=== PATIENT | male | born 1945 | race African-American/Black ===

== ENCOUNTER 2018-01-19 11:44 | Inpatient (IN) | payer OTHER ==
[~2018-01-19] VITALS: Ht 172.7 cm; Wt 59.6 kg
[2018-01-19] VITALS (8 sets, daily range): BP systolic 124–145; BP diastolic 72–85; PULSE 68–87; RESP 16–18; TEMP 97.8–98.7; O2SAT 96–99
[~2018-01-19 11:44] MED LIST: ASPIRIN/DIPYRIDAMOLE; DOXA1 PO; FINACRY PO; METF-324 PO
--- NOTE | 2018-01-19 11:55 | PD ---
HPI Chief Complaint: generalized weakness Time Seen by Provider: 11:55 Travel History International Travel<30 days: No Contact w/Intl Traveler<30days: No Traveled to known affect area: No History of Present Illness HPI 72-year-old male was sent from the [facility] via ambulance for generalized weakness and frequent falls. Upon asking patient says this is been going on for past 6 weeks. 4 days ago he fell on right outstretched hand. Says his wrist has been hurting since then. He went to see his doctor at the [facility] for that but after hearing his whole history the decided to send him to the emergency room for evaluation. Patient denies any syncopal episode. Patient denies any chest pain or shortness of breath. He is a chronic smoker. He appears to be in a disheveled and poor condition. Vital signs are relatively stable. Patient is awake and answering questions appropriately. [facility] Past Medical History Narrative Medical List of his past medical, surgical, social and family history is reviewed from the nursing note Diabetes: Yes Hypertension: Yes Social History Alcohol Use: Yes Tobacco Use: Yes Substance Use: No Allergies-Medications (Allergen,Severity, Reaction): Coded Allergies: No Known Allergies (Verified Adverse Reaction, Unknown, 01/19/18) Comments No known drug allergies. Reported Meds & Prescriptions Reported Meds & Active Scripts Active Reported Finasteride 5 Mg Tab 5 Mg PO DAILY Do not crush. Doxazosin (Doxazosin Mesylate) 4 Mg Tab 4 Mg PO DAILY Narrative Medication List of his home medications reviewed from the nursing note. Review of Systems Except as stated in HPI: all other systems reviewed are Neg Physical Exam Narrative GENERAL: Awake, alert, disheveled, poor hygiene, no obvious distress SKIN: Focused skin assessment warm/dry. HEAD: Atraumatic. Normocephalic. EYES: Pupils equal and round. No scleral icterus. No injection or drainage. ENT: No nasal bleeding or discharge. Mucous membranes pink and moist. NECK: Trachea midline. No JVD. CARDIOVASCULAR: Regular rate and rhythm. No murmur appreciated. RESPIRATORY: No accessory muscle use. Clear to auscultation. Breath sounds equal bilaterally. GASTROINTESTINAL: Abdomen soft, non-tender, nondistended. Hepatic and splenic margins not palpable. MUSCULOSKELETAL: No obvious deformities. No clubbing. No cyanosis. No edema. Right wrist is swollen with decreased range of motion mainly due to the pain. NEUROLOGICAL: Awake and alert. No obvious cranial nerve deficits. Motor grossly within normal limits. Normal speech. PSYCHIATRIC: Appropriate mood and affect; insight and judgment normal. Data Data Last Documented VS Vital Signs Date Time Temp Pulse Resp B/P (MAP) Pulse Ox O2 Delivery O2 Flow Rate FiO2 01/19/18 14:17 97.9 78 18 140/85 (103) 97 Room Air Orders Orders Electrocardiogram (01/19/18 12:03) Complete Blood Count With Diff (01/19/18 12:03) Comprehensive Metabolic Panel (01/19/18 12:03) Creatine Kinase (Cpk) (01/19/18 12:03) Prothrombin Time / Inr (Pt) (01/19/18 12:03) Troponin I (01/19/18 12:03) Urinalysis - C+S If Indicated (01/19/18 12:03) Chest, Single Ap (01/19/18 12:03) Ct Brain W/O Iv Contrast(Rout) (01/19/18 12:03) Blood Glucose (01/19/18 12:03) Ecg Monitoring (01/19/18 12:03) Iv Access Insert/Monitor (01/19/18 12:03) Oximetry (01/19/18 12:03) Sodium Chloride 0.9% Flush (Ns Flush) (01/19/18 12:15) Wrist, Complete ([id number]) (01/19/18 ) Sodium Chlor 0.9% 1000 Ml Inj (Ns 1000 M (01/19/18 14:00) Urine Culture (01/19/18 13:00) Aspirin (Aspirin) (01/19/18 14:30) Ceftriaxone Inj (Rocephin Inj) (01/19/18 14:30) Admit Order (Ed Use Only) (01/19/18 14:24) Labs Laboratory Tests Test 01/19/18 12:00 01/19/18 13:00 White Blood Count 13.3 TH/MM3 Red Blood Count 4.87 MIL/MM3 Hemoglobin 15.2 GM/DL Hematocrit 44.4 % Mean Corpuscular Volume 91.1 FL Mean Corpuscular Hemoglobin 31.1 PG Mean Corpuscular Hemoglobin Concent 34.1 % Red Cell Distribution Width 12.9 % Platelet Count 233 TH/MM3 Mean Platelet Volume 7.7 FL Neutrophils (%) (Auto) 83.7 % Lymphocytes (%) (Auto) 6.6 % Monocytes (%) (Auto) 9.2 % Eosinophils (%) (Auto) 0.2 % Basophils (%) (Auto) 0.3 % Neutrophils # (Auto) 11.1 TH/MM3 Lymphocytes # (Auto) 0.9 TH/MM3 Monocytes # (Auto) 1.2 TH/MM3 Eosinophils # (Auto) 0.0 TH/MM3 Basophils # (Auto) 0.0 TH/MM3 CBC Comment DIFF FINAL Differential Comment Prothrombin Time 9.8 SEC Prothromb Time International Ratio 1.0 RATIO Blood Urea Nitrogen 17 MG/DL Creatinine 1.45 MG/DL Random Glucose 260 MG/DL Total Protein 6.7 GM/DL Albumin 3.4 GM/DL Calcium Level 8.2 MG/DL Alkaline Phosphatase 58 U/L Aspartate Amino Transf (AST/SGOT) 10 U/L Alanine Aminotransferase (ALT/SGPT) 7 U/L Total Bilirubin 0.6 MG/DL Sodium Level 134 MEQ/L Potassium Level 4.1 MEQ/L Chloride Level 101 MEQ/L Carbon Dioxide Level 24.3 MEQ/L Anion Gap 9 MEQ/L Estimat Glomerular Filtration Rate 58 ML/MIN Hemoglobin A1c 6.9 % Total Creatine Kinase 75 U/L Troponin I LESS THAN 0.02 NG/ML Urine Color YELLOW Urine Turbidity HAZY Urine pH 5.5 Urine Specific [place] 1.022 Urine Protein TRACE mg/dL Urine Glucose (UA) 1000 mg/dL Urine Ketones NEG mg/dL Urine Occult Blood NEG Urine Nitrite NEG Urine Bilirubin NEG Urine Urobilinogen LESS THAN 2.0 MG/DL Urine Leukocyte Esterase SMALL Urine RBC 6 /hpf Urine WBC 33 /hpf Urine Squamous Epithelial Cells <1 /hpf Microscopic Urinalysis Comment CATH-CULTURE IND MDM Medical Decision Making Medical Screen Exam Complete: Yes Emergency Medical Condition: Yes Medical Record Reviewed: Yes Interpretation(s) Twelve-lead EKG was reviewed by me. Normal sinus rhythm, normal axis, nonspecific ST-T wave changes. Heart rate of 72 bpm. Differential Diagnosis Dehydration, electrolyte abnormality, neoplasm, intracranial bleed, wrist fracture Narrative Course 1:49 PM blood test results of back and within acceptable limits. X-ray of the wrist does not show any fracture just arthritis. Chest x-rays negative. ED is read by the radiologist said subacute lacunar infarct. I would like to admit this patient so that he can get further workup for his stroke. Awaiting for the hospitalist call back. Procedures EKG Prior to Arrival: No Diagnosis Primary Impression: Generalized weakness Additional Impressions: Frequent falls CVA (cerebral vascular accident) Qualified Codes: I63.49 - Cerebral infarction due to embolism of other cerebral artery Hyperglycemia Wrist sprain Qualified Codes: S63.501A - Unspecified sprain of right wrist, initial encounter UTI (urinary tract infection) Qualified Codes: N39.0 - Urinary tract infection, site not specified Admitting Information Admitting Physician Requests: Admit Scripts Metformin (Metformin) 500 Mg Tab 500 MG PO DAILY for Blood Sugar Management, #30 TAB 0 Refills With a meal Prov: Nora Thornton MD 01/21/18 Blood-Glucose Meter (Blood Glucose Meter) 1 Each Each UNIT, #1 Prov: Nora Thornton MD 01/21/18 Walker with Front Wheels (Walker with Front Wheels) 1 Mis Mis EA .XX DIRECTED, #1 0 Refills Prov: Nora Thornton MD 01/21/18 Lisinopril (Lisinopril) 5 Mg Tab 5 MG PO DAILY for Blood Pressure Management, #30 TAB 0 Refills Prov: Nora Thornton MD 01/21/18 Ciprofloxacin (Cipro) 250 Mg Tab 250 MG PO BID for Infection for 5 Days, #10 TAB 0 Refills Prov: Nora Thornton MD 01/21/18 Atorvastatin (Lipitor) 20 Mg Tab 20 MG PO HS for Cholesterol Management for 30 Days, #30 TAB 0 Refills Prov: Nora Thornton MD 01/21/18 Aspirin (Aspirin) 81 Mg Chew 162 MG CHEW DAILY for cva, #30 TAB 0 Refills Prov: Nora Thornton MD 01/21/18 Jacey Condon MD Jan 19, 2018 11:55
[2018-01-19] MEDS ORDERED: SODIUM CHLORIDE 0.9% FLUSH 10 ML FLUSH IV FLUSH PRN (12:15)
--- NOTE | 2018-01-19 12:32 | RADRPT ---
EXAM DATE/TIME: 01/19/2018 12:18 [facility] COMPARISON: No previous studies available for comparison. INDICATIONS : General weakness, falls, right arm weakness, right hand pain. Altered mental status. RADIATION DOSE: 34.02 CTDIvol (mGy) MEDICAL HISTORY : Cardiovascular disease. Hypertension. Diabetes SURGICAL HISTORY : None. ENCOUNTER: Initial ACUITY: 1 day PAIN SCALE: 0/10 LOCATION: cranial TECHNIQUE: Multiple contiguous axial images were obtained of the head. Using automated exposure control and adj ustment of the mA and/or kV according to patient size, radiation dose was kept as low as reasonably a chievable to obtain optimal diagnostic quality images. DICOM format image data is available electro nically for review and comparison. FINDINGS: There is a probable subacute or old lacunar infarct in the right periventricular white matter extendi ng towards the basal ganglia. There are additional smaller lacunar infarcts in the left thalamus and right globus pallidus. There is moderate chronic ischemic changes in the white matter. No mass effect or midline shift. No hydrocephalus. No abnormal extra-axial fluid collections. No acute bony abnorma lities. CONCLUSION: 1. Subacute or old approximately 1 cm lacunar infarct in the right periventricular white matter. Kvng tional smaller subcentimeter lacunar infarcts in the left thalamus and right globus pallidus. Underly ing moderate to severe chronic ischemic changes in the white matter. No hemorrhage or mass effect. Sarmad Avery MD on January 19, 2018 at 12:28 Board Certified Radiologist. This report was verified electronically.
--- NOTE | 2018-01-19 12:36 | RADRPT ---
EXAM DATE/TIME: 01/19/2018 12:12 [facility] COMPARISON: No previous studies available for comparison. INDICATIONS : Shortness of breath. MEDICAL HISTORY : None. SURGICAL HISTORY : None. ENCOUNTER: Initial ACUITY: 4 - 6 days PAIN SCORE: 0/10 LOCATION: Bilateral chest FINDINGS: A single view of the chest demonstrates the lungs to be symmetrically aerated without evidence of mas s, infiltrate or effusion. The cardiomediastinal contours are unremarkable. Osseous structures are intact. CONCLUSION: 1. No active disease. Mild cardiomegaly. Sarmad Avery MD on January 19, 2018 at 12:32 Board Certified Radiologist. This report was verified electronically.
[2018-01-19 12:37] LABS: AUTOMATED NEUTROPHIL # 11.1 TH/MM3 (1.8-7.7); BASOPHIL % 0.3 % (0.0-2.0); EOSINOPHIL % 0.2 % (0.0-4.0); HEMATOCRIT 44.4 % (39.0-51.0); HEMOGLOBIN 15.2 GM/DL (13.0-17.0); LYMPH % 6.6 % (9.0-44.0); LYMPHOCYTE # 0.9 TH/MM3 (1.0-4.8); MEAN CELL VOLUME 91.1 FL (80.0-100.0); MEAN CORPUSCULAR HEMOGLOBIN 31.1 PG (27.0-34.0); MEAN CORPUSCULAR HGB CONC 34.1 % (32.0-36.0); MEAN PLATELET VOLUME 7.7 FL (7.0-11.0); MONO % 9.2 % (0.0-8.0); MONOCYTE # 1.2 TH/MM3 (0-0.9); NEUT % 83.7 % (16.0-70.0); PLATELET COUNT 233 TH/MM3 (150-450); RED BLOOD COUNT 4.87 MIL/MM3 (4.50-5.90); RED CELL DISTRIBUTION WIDTH 12.9 % (11.6-17.2); WHITE BLOOD COUNT 13.3 TH/MM3 (4.0-11.0)
--- NOTE | 2018-01-19 12:38 | RADRPT ---
EXAM DATE/TIME: 01/19/2018 12:13 [facility] COMPARISON: No previous studies available for comparison. INDICATIONS : Right lateral wrist pain after fall. MEDICAL HISTORY : None. SURGICAL HISTORY : None. 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 Mild to moderate osteoarthritis the remainder of the right wrist. No acute fracture or dislocation. CONCLUSION: 1. No acute findings. Osteoarthritis right wrist as above. Sarmad Avery MD on January 19, 2018 at 12:34 Board Certified Radiologist. This report was verified electronically.
[2018-01-19 12:44] LABS: PROTHROMBIN TIME - PATIENT 9.8 SEC (9.8-11.6)
[2018-01-19 12:48] LABS: ALBUMIN 3.4 GM/DL (3.4-5.0); ALT (GPT) 7 U/L (12-78); AST (GOT) 10 U/L (15-37); BICARBONATE 24.3 MEQ/L (21.0-32.0); BLOOD UREA NITROGEN 17 MG/DL (7-18); CALCIUM 8.2 MG/DL (8.5-10.1); CHLORIDE 101 MEQ/L (98-107); CREATININE 1.45 MG/DL (0.60-1.30); GLOMERULAR FILTRATION RATE 58 ML/MIN (>89); GLUCOSE,RANDOM 260 MG/DL (74-106); SODIUM (NA) 134 MEQ/L (136-145)
[2018-01-19 12:52] LABS: ALKALINE PHOSPHATASE 58 U/L (45-117); TOTAL BILIRUBIN ADULT 0.6 MG/DL (0.2-1.0); TOTAL PROTEIN 6.7 GM/DL (6.4-8.2); TROPONIN I LESS THAN 0.02 NG/ML (0.02-0.05)
[2018-01-19] MEDS ORDERED: DOXA1TAB34 PO (13:29)
[2018-01-19] MEDS ORDERED: FINA5TAB2 PO (13:29)
[2018-01-19] MEDS ORDERED: SODIUM CHLOR 0.9% 1000 ML INJ 1,000 ML IV ONE ×2 (14:00→14:45)
[2018-01-19 14:13] LABS: BILIRUBIN, URINE NEG (NEG); BLOOD, URINE NEG (NEG); GLUCOSE,URINE 1000 mg/dL (NEG); KETONE, URINE NEG (NEG); NITRITE,URINE NEG (NEG); PH, URINE 5.5 (5.0-8.5); SQUAMOUS EPITHELIAL CELL URINE <1 /hpf (0-5); URINE COLOR YELLOW (YELLW/STRAW); URINE LEUKOCYTE ESTERASE SMALL (NEG)
[2018-01-19] MEDS ORDERED: ASPIRIN 325 MG TAB PO ONE (14:30)
[2018-01-19] MEDS ORDERED: cefTRIAXone INJ 1,000 MG in SODIUM CHLORIDE 0.9% INJ 100 ML IV ONE (14:30)
[2018-01-19] MEDS ORDERED: ACETAMINOPHEN/HYDROcodone 325 MG/5 MG TAB PO PRN (14:45)
[2018-01-19] MEDS ORDERED: DEXTROSE 50% IN WATER 50 ML VIAL(D50) IV PUSH PRN (14:45)
[2018-01-19] MEDS ORDERED: ACETAMINOPHEN 325 MG TAB PO PRN (14:45)
[2018-01-19] MEDS ORDERED: GLUCAGON 1 MG/ML VIAL OTHER PRN (14:45)
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
--- NOTE | 2018-01-19 16:32 | RADRPT ---
EXAM DATE/TIME: 01/19/2018 15:46 [facility] COMPARISON: No previous studies available for comparison. INDICATIONS : Cerebrovascular accident. MEDICAL HISTORY : Hypercholesterolemia. Hypertension. Chronic obstructive pulmonary disease. Glasses. Cardiac disorders . Anticoagulant therapy. Asthma. Diabetes. Alcohol use. Tobacco use. BPH. SURGICAL HISTORY : None. ENCOUNTER: Initial ACUITY: 1 day PAIN SCORE: 0/10 LOCATION: Bilateral neck PEAK SYSTOLIC VELOCITIES (cm/sec): ICA/CCA RATIO: Right: 1.0 Left: 0.6 ICA: Right: 62.0 Left: 49.3 CCA: Right: 64.7 Left: 76.3 ECA: Right: 51.5 Left: 72.4 VERTEBRAL: Right: 51.7 antegrade Left: 30.5 antegrade Elevated flow velocities and ICA/CCA ratios have been found to correlate with increased degrees of vessel stenosis, calculated as percentage of diameter relative to a normal segment of distal ICA/CCA FINDINGS: RIGHT CAROTID: No significant stenosis is visualized. The waveforms are within normal limits. LEFT CAROTID: No significant stenosis is visualized. The waveforms are within normal limits. VERTEBRAL ARTERIES: Antegrade flow is seen in both vertebral arteries. MISCELLANEOUS: None. CONCLUSION: 1. Scattered bilateral bulky calcified carotid plaque without significant flow-limiting stenosis. 2. Vertebral artery flow bilaterally. Manny Potter MD on January 19, 2018 at 16:28 Board Certified Radiologist. This report was verified electronically.
[2018-01-19] MEDS: INSULIN ASPART SUPPLEMENTAL SCALE SQ SCH ×2 (16:56→21:00)
--- NOTE | 2018-01-19 18:04 | RADRPT ---
EXAM DATE/TIME: 01/19/2018 17:36 [facility] COMPARISON: CT BRAIN W/O CONTRAST, January 19, 2018, 12:18. MRI BRAIN W/O CONTRAST, January 19, 2018, 17:36. INDICATIONS : CVA. MEDICAL HISTORY : Hypertension. Hypercholesterolemia. Chronic obstructive pulmonary disease. Diabetes. BPH. SURGICAL HISTORY : None. ENCOUNTER: Subsequent ACUITY: 1 day PAIN SCORE: 0/10 LOCATION: cranial Please note a normal MRA of the brain does not entirely exclude the possibility of a small aneurysm, nor the possibility of distal intracranial vessel disease. TECHNIQUE: 3D time of flight MRA was performed. Source images, multiplanar STS MIP, and 3D volume MIP reconstru ctions were reviewed. FINDINGS: There is excellent visualization of the major intracranial arteries out to the second-order branch ve ssels. There is no evidence for aneurysm, vessel truncation or stenosis, and no evidence for vascula r malformation. CONCLUSION: Normal examination. Remy Iverson MD on January 19, 2018 at 18:02 Board Certified Radiologist. This report was verified electronically.
--- NOTE | 2018-01-19 18:07 | RADRPT ---
EXAM DATE/TIME: 01/19/2018 17:36 [facility] COMPARISON: MRA BRAIN W/O CONTRAST, January 19, 2018, 17:36. CT BRAIN W/O CONTRAST, January 19, 2018, 12:18. INDICATIONS : CVA. MEDICAL HISTORY : Hypertension. Hypercholesterolemia. Chronic obstructive pulmonary disease. Diabetes. BPH. SURGICAL HISTORY : None. ENCOUNTER: Subsequent ACUITY: 1 day PAIN SCORE: 0/10 LOCATION: cranial TECHNIQUE: Multiplanar, multisequence MRI of the brain was performed without contrast. FINDINGS: Diffusion weighted images demonstrate no evidence for acute infarction. There is moderate increased f lair millimeter times, periventricular white matter, basal ganglia and bilateral centrum semiovale an d subcortical white matter, most characteristic of chronic microvascular ischemic disease. T2 images best demonstrate pontine, left thalamic and bilateral basal ganglia lacunar infarcts, nonacute. There is mild diffuse atrophy. There is no evidence of intracranial hemorrhage or mass. CONCLUSION: No evidence of acute infarct, atrophy is present with white matter disease and remote lacunar infarct miller Iverson MD on January 19, 2018 at 18:04 Board Certified Radiologist. This report was verified electronically.
[2018-01-20] VITALS (7 sets, daily range): BP systolic 130–159; BP diastolic 69–82; PULSE 62–71; RESP 16–18; TEMP 97.4–98.9; O2SAT 94–97
[2018-01-20 07:17] LABS: AUTOMATED NEUTROPHIL # 7.6 TH/MM3 (1.8-7.7); BASOPHIL # 0.1 TH/MM3 (0-0.2); BASOPHIL % 0.5 % (0.0-2.0); EOSINOPHIL # 0.2 TH/MM3 (0-0.4); EOSINOPHIL % 2.1 % (0.0-4.0); HEMATOCRIT 41.1 % (39.0-51.0); HEMOGLOBIN 14.2 GM/DL (13.0-17.0); LYMPH % 14.3 % (9.0-44.0); LYMPHOCYTE # 1.5 TH/MM3 (1.0-4.8); MEAN CELL VOLUME 90.4 FL (80.0-100.0); MEAN CORPUSCULAR HEMOGLOBIN 31.4 PG (27.0-34.0); MEAN CORPUSCULAR HGB CONC 34.7 % (32.0-36.0); MEAN PLATELET VOLUME 7.5 FL (7.0-11.0); MONOCYTE # 0.8 TH/MM3 (0-0.9); NEUT % 75.1 % (16.0-70.0); PLATELET COUNT 218 TH/MM3 (150-450); RED BLOOD COUNT 4.54 MIL/MM3 (4.50-5.90); RED CELL DISTRIBUTION WIDTH 13.3 % (11.6-17.2); WHITE BLOOD COUNT 10.2 TH/MM3 (4.0-11.0)
[2018-01-20] MEDS: INSULIN ASPART SUPPLEMENTAL SCALE SQ SCH ×4 (08:00→20:58)
[2018-01-20 08:06] LABS: BICARBONATE 22.9 MEQ/L (21.0-32.0); CALCIUM 8.4 MG/DL (8.5-10.1); CHOLESTEROL/ HDL RATIO 2.43 RATIO; CREATININE 1.27 MG/DL (0.60-1.30); HDL CHOLESTEROL 50.2 MG/DL (40.0-60.0)
[2018-01-20] MEDS: FINASTERIDE 5 MG TAB PO SCH (09:22)
[2018-01-20] MEDS: DOXAZOSIN MESYLATE 4 MG TAB PO SCH (09:22)
[2018-01-20] MEDS: ASPIRIN 325 MG TAB PO SCH (09:23)
--- NOTE | 2018-01-20 09:24 | HHI.PR ---
Subjective Remarks in no acute distress. pain and swelling of the right wrist is better today. no other new complaints. d/w the RN and no acute issues over night. Objective Vitals Vital Signs Date Time Temp Pulse Resp B/P (MAP) Pulse Ox O2 Delivery O2 Flow Rate FiO2 01/20/18 08:00 98.9 70 18 132/75 (94) 97 01/20/18 04:00 98.3 71 16 139/69 (92) 95 01/20/18 00:00 98.7 67 16 136/79 (98) 94 01/19/18 20:00 98.7 68 17 138/75 (96) 96 01/19/18 18:05 97.8 76 17 138/81 (100) 99 01/19/18 17:00 98.0 74 18 132/80 (97) 98 Room Air 01/19/18 15:00 97.9 76 16 124/85 (98) 98 Room Air 01/19/18 14:17 97.9 78 18 140/85 (103) 97 Room Air 01/19/18 13:00 97.8 81 18 138/81 (100) 99 Room Air 01/19/18 12:07 17 97 Room Air 01/19/18 12:00 82 18 97 Room Air 01/19/18 11:59 97.8 87 18 145/72 (96) 98 I/O 01/19/18 01/19/18 01/19/18 01/20/18 01/20/18 01/20/18 07:00 15:00 23:00 07:00 15:00 23:00 Intake Total 1100 ml 0 ml Output Total 800 ml 700 ml 600 ml Balance -800 ml 400 ml -600 ml Intake Oral 0 ml IV Total 1100 ml Output Urine Total 800 ml 700 ml 600 ml # Voids 1 1 # Bowel Movements 0 0 Result Diagram: 01/20/18 0650 01/20/18 0650 Imaging Last Impressions Head CT 01/19/18 1203 Signed Impressions: Service Date/Time: Friday, January 19, 2018 12:18 - CONCLUSION: 1. Subacute or old approximately 1 cm lacunar infarct in the right periventricular white matter. Additional smaller subcentimeter lacunar infarcts in the left thalamus and right globus pallidus. Underlying moderate to severe chronic ischemic changes in the white matter. No hemorrhage or mass effect. Sarmad Avery MD Chest X-Ray 01/19/18 1203 Signed Impressions: Service Date/Time: Friday, January 19, 2018 12:12 - CONCLUSION: 1. No active disease. Mild cardiomegaly. Sarmad Avery MD Wrist X-Ray 01/19/18 0000 Signed Impressions: Service Date/Time: Friday, January 19, 2018 12:13 - CONCLUSION: 1. No acute findings. Osteoarthritis right wrist as above. Sarmad Avery MD Head Magnetic Resonance Angiography 01/19/18 0000 Signed Impressions: Service Date/Time: Friday, January 19, 2018 17:36 - CONCLUSION: Normal examination. Remy Iverson MD Carotid Artery Ultrasound 01/19/18 0000 Signed Impressions: Service Date/Time: Friday, January 19, 2018 15:46 - CONCLUSION: 1. Scattered bilateral bulky calcified carotid plaque without significant flow-limiting stenosis. 2. Vertebral artery flow bilaterally. Manny Potter MD Brain MRI 01/19/18 0000 Signed Impressions: Service Date/Time: Friday, January 19, 2018 17:36 - CONCLUSION: No evidence of acute infarct, atrophy is present with white matter disease and remote lacunar infarcts. Remy Iverson MD Objective Remarks GENERAL: This is a well-nourished, well-developed patient, in no apparent distress. CARDIOVASCULAR: Regular rate and regular rhythm without murmurs, gallops, or rubs. RESPIRATORY: Clear to auscultation. Breath sounds equal bilaterally. No wheezes , rales, or rhonchi. GASTROINTESTINAL: Abdomen soft, non-tender, nondistended. Normal, active bowel sounds MUSCULOSKELETAL: swelling of the right wrist is better. NEURO: Alert & Oriented x4 to person, place, time, situation. Moves all ext x4 Medications and IVs Inpatient Medications Acetaminophen (Tylenol) 650 mg Q4H PRN PO FEVER/ PAIN 1-5; Start 01/19/18 at 14: 45 Acetaminophen/ Hydrocodone Bitart ([place] 5-325 Mg) 1 tab Q4H PRN PO PAIN 6-10 ; Start 01/19/18 at 14:45 Aspirin (Aspirin) 325 mg DAILY PO ; Start 01/20/18 at 09:00 Ceftriaxone Sodium 1000 mg/ Sodium Chloride 100 ml @ 200 mls/hr Q24H IV ; Start 01/20/18 at 14:00 Dextrose (D50w (Vial) Inj) 50 ml UNSCH PRN IV PUSH HYPOGLYCEMIA-SEE COMMENTS; Start 01/19/18 at 14:45 Doxazosin Mesylate (Cardura) 4 mg DAILY PO ; Start 01/20/18 at 09:00 Enoxaparin Sodium (Lovenox Inj) 40 mg Q24H SQ ; Start 01/20/18 at 09:00 Finasteride (Proscar) 5 mg DAILY PO ; Start 01/20/18 at 09:00 Glucagon (Glucagon Inj) 1 mg UNSCH PRN OTHER HYPOGLYCEMIA-SEE COMMENTS; Start 01/19/18 at 14:45 Insulin Aspart (NovoLOG SUPPLEMENTAL SCALE) 1 ACHS SLIDING SCALE SQ ; Start 01/19/18 at 17:00 Sodium Chloride 1,000 ml @ 75 mls/hr [id number] ONCE IV Last administered on at 14:54; Start 01/19/18 at 14:45; Stop 01/20/18 at 04:04; Status DC Sodium Chloride (NS Flush) 2 ml UNSCH PRN IV FLUSH FLUSH AFTER USING IV ACCESS Last administered on 01/19/18at 12:13; Start 01/19/18 at 12:15 A/P Problem List: (1) Frequent falls ICD Code: R29.6 - Repeated falls Status: Acute (2) CVA (cerebral vascular accident) ICD Code: I63.9 - Cerebral infarction, unspecified Status: Acute Assessment and Plan - generalized weakness/ frequent falls/ old CVA neuro-checks with fall precautions- continue aspirin- neurology consult appreciated. PT/OT eval pending. MRI brain with old infarcts and MRA brain negative. carotid doppler with no significant stenosis. echo pending. -hyperglycemia- newly diagnosed diabetes?- [id number] and continue on accu-check with SSI -pain to the right wrist after a fall- improving. XR negative for fracture- continue with pain control and OT. -acute kidney injury; improved. -possible UTI- started on antibiotic and follow the UC. -BPH- resumed home meds -DVT prophylaxis with subq Lovenox -case management for dc planning. Discharge Planning dc planning within the next 24 hrs- pending echo, PT eval and neurology f/u. Problem Qualifiers (1) CVA (cerebral vascular accident): Qualified Codes: I63.49 - Cerebral infarction due to embolism of other cerebral artery Nora Thornton MD Jan 20, 2018 09:24
[2018-01-20] MEDS: ENOXAPARIN SODIUM 40 MG/0.4 ML SYRINGE SQ SCH (09:25)
--- NOTE | 2018-01-20 09:59 | EKG ---
Date Performed: 01/19/2018 Time Performed: 12:48:09 PTAGE: 72 years EKG: Sinus rhythm NORMAL ECG NO PREVIOUS TRACING DOCTOR: Edwin Guzman Interpretating Date/Time 01/20/2018 09:58:53
[2018-01-20 11:58] LABS: HEMOGLOBIN A1C 6.9 % (4.3-6.0)
--- NOTE | 2018-01-20 15:09 | ECHRPT ---
Indication: CVA/TIA CONCLUSIONS Difficult sty - very limited The left ventricular systolic function is mildly reduced with an estimated ejection fraction in the range of 45- 50%. Normal left ventricular size. Wall thickness is normal. There is trace tricuspid valve regurgitation. The estimated pulmonary arterial pressure is 26.2 mmHg. BP: / HR: 65 Rhythm: Sinus MEASUREMENTS (Male / Female) Normal Values Technical Quality:Technically difficult study 2D ECHO LV Diastolic Diameter PLAX 4.7 cm 4.2 - 5.9 / 3.9 - 5.3 cm LV Systolic Diameter PLAX 3.8 cm IVS Diastolic Thickness 0.8 cm 0.6 - 1.0 / 0.6 - 0.9 cm LVPW Diastolic Thickness 0.8 cm 0.6 - 1.0 / 0.6 - 0.9 cm LV Relative Wall Thickness 0.3 LVOT Diameter 2.1 cm DOPPLER AV Peak Velocity 109.0 cm/s AV Peak Gradient 4.8 mmHg LVOT Peak Velocity 60.7 cm/s LVOT Peak Gradient 1.5 mmHg AV Area Cont Eq pk 1.9 cm Mitral E Point Velocity 79.0 cm/s Mitral A Point Velocity 80.5 cm/s Mitral E to A Ratio 1.0 LV E' Lateral Velocity 8.6 cm/s Mitral E to LV E' Lateral Ratio 9.2 LV E' Septal Velocity 7.2 cm/s Mitral E to LV E' Septal Ratio 11.0 TR Peak Velocity 201.0 cm/s TR Peak Gradient 16.2 mmHg Right Atrial Pressure 10.0 mmHg Pulmonary Artery Systolic Pressu 26.2 mmHg Right Ventricular Systolic Press 26.2 mmHg FINDINGS LEFT VENTRICLE The left ventricular systolic function is mildly reduced with an estimated ejection fraction in the range of 45- 50%. Normal left ventricular size. Wall thickness is normal. RIGHT VENTRICLE Normal right ventricular size and systolic function. LEFT ATRIUM The left atrial size is normal. RIGHT ATRIUM The right atrial size is normal. ATRIAL SEPTUM Normal atrial septal thickness without atrial level shunting by limited color doppler interrogation. AORTA The aortic root and proximal ascending aorta are normal in size on limited imaging. MITRAL VALVE Structurally normal mitral valve. No mitral valve stenosis or regurgitation. AORTIC VALVE Trileaflet aortic valve. No aortic valve stenosis or regurgitation. TRICUSPID VALVE There is trace tricuspid valve regurgitation. The estimated pulmonary arterial pressure is 26.2 mmHg. PULMONARY VALVE No pulmonary valve regurgitation or stenosis. VESSELS The inferior vena cava is normal in size. PERICARDIUM No pericardial effusion. Sofie Kelly MD, FACC (Electronically Signed) Final Date:20 January 2018 15:08
[2018-01-20] MEDS: cefTRIAXone INJ 1,000 MG in SODIUM CHLORIDE 0.9% INJ 100 ML IV SCH (15:37)
[2018-01-21 00:12] VITALS: PULSE 64
[2018-01-21 00:50] VITALS: BP 149/86; PULSE 70; RESP 18; TEMP 98.2; O2SAT 98
[2018-01-21 05:06] VITALS: BP 147/74; PULSE 73; RESP 18; TEMP 98.1; O2SAT 95
[2018-01-21] MEDS: INSULIN ASPART SUPPLEMENTAL SCALE SQ SCH ×2 (07:57→11:58)
[2018-01-21] MEDS: DOXAZOSIN MESYLATE 4 MG TAB PO SCH (07:58)
[2018-01-21] MEDS: ASPIRIN 325 MG TAB PO SCH (07:59)
[2018-01-21] MEDS: FINASTERIDE 5 MG TAB PO SCH (07:59)
[2018-01-21] MEDS: ENOXAPARIN SODIUM 40 MG/0.4 ML SYRINGE SQ SCH (07:59)
[2018-01-21 08:00] VITALS: BP 154/86; PULSE 80; RESP 18; TEMP 98; O2SAT 94
--- NOTE | 2018-01-21 08:51 | HHI.PR ---
Subjective Remarks in no acute distress. no new complaints. pain to the right wrist has much improved. d/w the RN and no acute issues over night. Objective Vitals Vital Signs Date Time Temp Pulse Resp B/P (MAP) Pulse Ox O2 Delivery O2 Flow Rate FiO2 01/21/18 08:00 98.0 80 18 154/86 (108) 94 01/21/18 05:06 98.1 73 18 147/74 (98) 95 01/21/18 00:50 98.2 70 18 149/86 (107) 98 01/21/18 00:12 64 01/20/18 20:03 97.4 67 18 159/82 (107) 95 01/20/18 16:36 65 01/20/18 16:00 98.2 62 18 146/82 (103) 97 01/20/18 12:00 98.3 71 18 130/72 (91) 96 I/O 01/20/18 01/20/18 01/20/18 01/21/18 01/21/18 01/21/18 07:00 15:00 23:00 07:00 15:00 23:00 Intake Total 0 ml 400 ml Output Total 600 ml 400 ml Balance -600 ml 0 ml Intake Oral 0 ml Packed Cells 400 ml Output Urine Total 600 ml 400 ml # Bowel Movements 0 Result Diagram: 01/20/18 0650 01/20/18 0650 Imaging Last Impressions Head CT 01/19/18 1203 Signed Impressions: Service Date/Time: Friday, January 19, 2018 12:18 - CONCLUSION: 1. Subacute or old approximately 1 cm lacunar infarct in the right periventricular white matter. Additional smaller subcentimeter lacunar infarcts in the left thalamus and right globus pallidus. Underlying moderate to severe chronic ischemic changes in the white matter. No hemorrhage or mass effect. Sarmad Avery MD Chest X-Ray 01/19/18 1203 Signed Impressions: Service Date/Time: Friday, January 19, 2018 12:12 - CONCLUSION: 1. No active disease. Mild cardiomegaly. Sarmad Avery MD Wrist X-Ray 01/19/18 0000 Signed Impressions: Service Date/Time: Friday, January 19, 2018 12:13 - CONCLUSION: 1. No acute findings. Osteoarthritis right wrist as above. Sarmad Avery MD Head Magnetic Resonance Angiography 01/19/18 0000 Signed Impressions: Service Date/Time: Friday, January 19, 2018 17:36 - CONCLUSION: Normal examination. Remy Iverson MD Carotid Artery Ultrasound 01/19/18 0000 Signed Impressions: Service Date/Time: Friday, January 19, 2018 15:46 - CONCLUSION: 1. Scattered bilateral bulky calcified carotid plaque without significant flow-limiting stenosis. 2. Vertebral artery flow bilaterally. Manny Potter MD Brain MRI 01/19/18 0000 Signed Impressions: Service Date/Time: Friday, January 19, 2018 17:36 - CONCLUSION: No evidence of acute infarct, atrophy is present with white matter disease and remote lacunar infarcts. Remy Iverson MD Objective Remarks GENERAL: This is a well-nourished, well-developed patient, in no apparent distress. CARDIOVASCULAR: Regular rate and regular rhythm without murmurs, gallops, or rubs. RESPIRATORY: Clear to auscultation. Breath sounds equal bilaterally. No wheezes , rales, or rhonchi. GASTROINTESTINAL: Abdomen soft, non-tender, nondistended. Normal, active bowel sounds MUSCULOSKELETAL: swelling of the right wrist is better. NEURO: Alert & Oriented x4 to person, place, time, situation. Moves all ext x4 Procedures none Medications and IVs Inpatient Medications Acetaminophen (Tylenol) 650 mg Q4H PRN PO FEVER/ PAIN 1-5; Start 01/19/18 at 14: 45 Acetaminophen/ Hydrocodone Bitart ([place] 5-325 Mg) 1 tab Q4H PRN PO PAIN 6-10 ; Start 01/19/18 at 14:45 Aspirin (Aspirin) 325 mg DAILY PO Last administered on 01/21/18at 07:59; Start at 09:00 Ceftriaxone Sodium 1000 mg/ Sodium Chloride 100 ml @ 200 mls/hr Q24H IV Last administered on 01/20/18at 15:37; Start 01/20/18 at 14:00 Dextrose (D50w (Vial) Inj) 50 ml UNSCH PRN IV PUSH HYPOGLYCEMIA-SEE COMMENTS; Start 01/19/18 at 14:45 Doxazosin Mesylate (Cardura) 4 mg DAILY PO Last administered on 01/21/18at 07:58 ; Start 01/20/18 at 09:00 Enoxaparin Sodium (Lovenox Inj) 40 mg Q24H SQ Last administered on 01/21/18at 07: 59; Start 01/20/18 at 09:00 Finasteride (Proscar) 5 mg DAILY PO Last administered on 01/21/18at 07:59; Start 01/20/18 at 09:00 Glucagon (Glucagon Inj) 1 mg UNSCH PRN OTHER HYPOGLYCEMIA-SEE COMMENTS; Start 01/19/18 at 14:45 Insulin Aspart (NovoLOG SUPPLEMENTAL SCALE) 1 ACHS SLIDING SCALE SQ Last administered on 01/20/18at 17:00; Start 01/19/18 at 17:00 Sodium Chloride 1,000 ml @ 75 mls/hr [id number] ONCE IV Last administered on at 14:54; Start 01/19/18 at 14:45; Stop 01/20/18 at 04:04; Status DC Sodium Chloride (NS Flush) 2 ml UNSCH PRN IV FLUSH FLUSH AFTER USING IV ACCESS Last administered on 01/19/18at 12:13; Start 01/19/18 at 12:15 A/P Problem List: (1) Frequent falls ICD Code: R29.6 - Repeated falls Status: Acute (2) CVA (cerebral vascular accident) ICD Code: I63.9 - Cerebral infarction, unspecified Status: Acute Assessment and Plan - generalized weakness/ frequent falls/ old CVA neuro-checks with fall precautions- continue aspirin- neurology consult appreciated. continue PT/OT . MRI brain with old infarcts and MRA brain negative. carotid doppler with no significant stenosis. echo with EF 45-50%. -hyperglycemia/ newly diagnosed diabetes; A1c 6.9 with glucosuria; continue on diabetic diet .start on low dose metformin. patient doesn't want to wait for diabetes education- will have a f/u with his pcp. [facility] for diabetic education. -pain to the right wrist. XR negative for fracture- continue with pain control and OT. -acute kidney injury; improved. -elevated BP- hypertension?- start on lisinopril- f/u as outpatient. -possible UTI- started on antibiotic and follow the UC. -BPH- resumed home meds -DVT prophylaxis with subq Lovenox -case management for dc planning. Discharge Planning dc to [facility]. f/u; pcp and neurology. see med list. d/w the patient and RN. d/w . time spent 35 min. Problem Qualifiers (1) CVA (cerebral vascular accident): Qualified Codes: I63.49 - Cerebral infarction due to embolism of other cerebral artery Nora Thornton MD Jan 21, 2018 08:51
[2018-01-21] MEDS ORDERED: LIPI20TA PO (09:00)
[2018-01-21] MEDS ORDERED: ASPI-516 CHEW (09:00)
[2018-01-21] MEDS ORDERED: LISI-519 PO (09:00)
[2018-01-21] MEDS ORDERED: CIPR250T52 PO (09:00)
--- NOTE | 2018-01-21 09:01 | HHI.DS ---
Discharge Summary Admission Date Jan 19, 2018 at 14:25 Discharge Date: Jan 21, 2018 Admitting Diagnosis CVA, frequent falls, UTI (1) Frequent falls ICD Code: R29.6 - Repeated falls Diagnosis: Principal Status: Acute (2) CVA (cerebral vascular accident) ICD Code: I63.9 - Cerebral infarction, unspecified Diagnosis: Principal Status: Acute Procedures none Brief History - From Admission patient is a 72 y/o male with no known past medical history other than enlarged prostate presented to ER with generalized weakness, impaired balance and frequent falls. he says that he fell eight or nine times over the past few weeks. he's complaining of pain to the right wrist after he fell four days ago. he doesn't recall any slurred speech or focal weakness. he denies any chest pain or sob. he says that he went to [place] and ' they sent him to ER'. CBC/BMP: 01/20/18 0650 01/20/18 0650 Significant Findings Laboratory Tests Test 01/19/18 12:00 01/19/18 13:00 01/20/18 06:50 White Blood Count 13.3 TH/MM3 (4.0-11.0) Neutrophils (%) (Auto) 83.7 % (16.0-70.0) 75.1 % (16.0-70.0) Lymphocytes (%) (Auto) 6.6 % (9.0-44.0) Monocytes (%) (Auto) 9.2 % (0.0-8.0) Neutrophils # (Auto) 11.1 TH/MM3 (1.8-7.7) Lymphocytes # (Auto) 0.9 TH/MM3 (1.0-4.8) Monocytes # (Auto) 1.2 TH/MM3 (0-0.9) Creatinine 1.45 MG/DL (0.60-1.30) Random Glucose 260 MG/DL (74-106) 120 MG/DL (74-106) Calcium Level 8.2 MG/DL (8.5-10.1) 8.4 MG/DL (8.5-10.1) Aspartate Amino Transf (AST/SGOT) 10 U/L (15-37) Alanine Aminotransferase (ALT/SGPT) 7 U/L (12-78) Sodium Level 134 MEQ/L (136-145) Estimat Glomerular Filtration Rate 58 ML/MIN (>89) 68 ML/MIN (>89) Hemoglobin A1c 6.9 % (4.3-6.0) Troponin I LESS THAN 0.02 NG/ML Urine Turbidity HAZY (CLEAR) Urine Glucose (UA) 1000 mg/dL (NEG) Urine Leukocyte Esterase SMALL (NEG) Urine RBC 6 /hpf (0-3) Urine WBC 33 /hpf (0-5) Imaging Last Impressions Head CT 01/19/18 1203 Signed Impressions: Service Date/Time: Friday, January 19, 2018 12:18 - CONCLUSION: 1. Subacute or old approximately 1 cm lacunar infarct in the right periventricular white matter. Additional smaller subcentimeter lacunar infarcts in the left thalamus and right globus pallidus. Underlying moderate to severe chronic ischemic changes in the white matter. No hemorrhage or mass effect. Sarmad Avery MD Chest X-Ray 01/19/18 1203 Signed Impressions: Service Date/Time: Friday, January 19, 2018 12:12 - CONCLUSION: 1. No active disease. Mild cardiomegaly. Sarmad Avery MD Wrist X-Ray 01/19/18 0000 Signed Impressions: Service Date/Time: Friday, January 19, 2018 12:13 - CONCLUSION: 1. No acute findings. Osteoarthritis right wrist as above. Sarmad Avery MD Head Magnetic Resonance Angiography 01/19/18 0000 Signed Impressions: Service Date/Time: Friday, January 19, 2018 17:36 - CONCLUSION: Normal examination. Remy Iverson MD Carotid Artery Ultrasound 01/19/18 0000 Signed Impressions: Service Date/Time: Friday, January 19, 2018 15:46 - CONCLUSION: 1. Scattered bilateral bulky calcified carotid plaque without significant flow-limiting stenosis. 2. Vertebral artery flow bilaterally. Manny Potter MD Brain MRI 01/19/18 0000 Signed Impressions: Service Date/Time: Friday, January 19, 2018 17:36 - CONCLUSION: No evidence of acute infarct, atrophy is present with white matter disease and remote lacunar infarcts. Remy Iverson MD PE at Discharge GENERAL: This is a well-nourished, well-developed patient, in no apparent distress. CARDIOVASCULAR: Regular rate and regular rhythm without murmurs, gallops, or rubs. RESPIRATORY: Clear to auscultation. Breath sounds equal bilaterally. No wheezes , rales, or rhonchi. GASTROINTESTINAL: Abdomen soft, non-tender, nondistended. Normal, active bowel sounds MUSCULOSKELETAL: swelling of the right wrist is better. NEURO: Alert & Oriented x4 to person, place, time, situation. Moves all ext x4 Hospital Course - generalized weakness/ frequent falls/ old CVA neuro-checks with fall precautions- continue aspirin- neurology consult appreciated. continue PT/OT . MRI brain with old infarcts and MRA brain negative. carotid doppler with no significant stenosis. echo with EF 45-50%. -hyperglycemia/ newly diagnosed diabetes; A1c 6.9 with glucosuria; continue on diabetic diet- start on low dose metformin. patient doesn't want to wait for diabetes education- will have a f/u with pcp- [facility] for diabetic education. -pain to the right wrist after a fall- improving. XR negative for fracture- continue with pain control and OT. -acute kidney injury; improved. -elevated BP- hypertension?- start on lisinopril- f/u as outpatient. -possible UTI- started on antibiotic and follow the UC. -BPH- resumed home meds -DVT prophylaxis with subq Lovenox -case management for dc planning. Pt Condition on Discharge: Fair Discharge Disposition: Discharge to SNF Discharge Time: > 30 minutes Discharge Instructions DIET: Follow Instructions for: Heart Healthy Diet, Diabetic Diet Activities you can perform: Regular-No Restrictions Nora Thornton MD Jan 21, 2018 09:01
[2018-01-21 10:16] VITALS: PULSE 78
[2018-01-21 12:00] VITALS: BP 153/81; PULSE 65; RESP 18; TEMP 98.1; O2SAT 94
--- NOTE | 2018-01-21 13:49 | HHI.FF ---
Face to Face Verification Diagnosis: (1) Frequent falls (2) CVA (cerebral vascular accident) Physical Therapy Order: Evaluate and Treat Occupational Therapy Order: Evaluate and Treat Home Health Nursing Order: Medical education Signs/symptoms of disease process Diabetic education Medication education-adverse effect Nursing assessment with vital signs I have seen patient Lizandro Leblanc on 01/21/18. My clinical findings support the need for the requested home health care services because: Ltd mobility - disease progression I certify that my clinical findings support that this patient is homebound because: Unsteady gait/balance Nora Thornton MD Jan 21, 2018 13:49
[2018-01-21] MEDS ORDERED: WALKER WHEELS/F1 MIS (14:00)
[2018-01-21] MEDS ORDERED: GLUCMIS7 (14:08)
[2018-01-21] MEDS ORDERED: METF500T PO (14:10)
[2018-01-21] MEDS: cefTRIAXone INJ 1,000 MG in SODIUM CHLORIDE 0.9% INJ 100 ML IV SCH (14:28)
== END 2018-01-21 15:03 | disposition home health service (06) | DRG 683 ==
LOC: NEPC 11:44 → NEDA 14:25 → N05B 18:30
PROVIDERS: ADMIT Internal Medicine; ATTEND Internal Medicine
DX: N17.9 Acute kidney failure, unspecified (principal); N39.0 Urinary tract infection, site not specified; E11.65 Type 2 diabetes mellitus with hyperglycemia; N40.0 Benign prostatic hyperplasia without lower urinary tract symptoms; R29.6 Repeated falls; M25.531 Pain in right wrist; Z86.73 Personal history of transient ischemic attack (TIA), and cerebral infarction without residual deficits; F17.290 Nicotine dependence, other tobacco product, uncomplicated
CPT/HCPCS: 70450; 70544; 70551; 71045; 73110; 80048; 80053; 80061; 81001; 82550; 82948; 83036; 84484; 85025; 85610; 87086; 93005; 93306; 93880; 99285; J0696; J1650; J1815; J7030

== ENCOUNTER 2018-05-24 12:37 | Inpatient (IN) ==
[2018-05-24] MEDS ORDERED: Pantoprazole Inj 40 MG Vial IV.PUSH ONE (13:15)
[2018-05-24] MEDS ORDERED: Sod Chloride 0.9% Inj 1,000 ML IV.SIG ONE ×2 (13:15→14:21)
[2018-05-24] MEDS ORDERED: Sod Chloride 0.9% Inj 1,000 ML IV.CONT SCH ×2 (13:15→17:13)
[2018-05-24] MEDS ORDERED: fentaNYL 10 mcg/mL Premix Drip 2,500 MCG/250 ML BAG IV.SIG PRN (13:19)
[2018-05-24] MEDS ORDERED: VANCOMYCIN IV.SIG ONE (13:22)
[2018-05-24] MEDS ORDERED: SODIUM CHLOR 0.9% IV.SIG ONE (13:22)
[2018-05-24] MEDS ORDERED: Piperacil/Tazo 3.375 GM Premix 50 ML IV.SIG ONE (13:22)
[2018-05-24] MEDS ORDERED: Vancomycin Inj 1,250 MG in Sodium Chlor 0.9% Inj 250 ML IV.SIG ONE (13:30)
--- NOTE | 2018-05-24 13:32 | ED ---
HPI General Chief Complaint: Altered Mental Status Stated Complaint: Medical/evac Time Seen by Provider: 05/24/18 13:08 Source: EMS Mode of arrival: EMS Limitations: altered mental status History of Present Illness HPI narrative: 72-year-old male was brought in by EMS after patient was found unresponsive at home. EMS got a call for well check. Patient was found unresponsive. [id number] ventilation assisted respiration. Patient was found to be hypotensive and hypothermia. Patient was transported to ED for evaluation. Unable to obtain any past medical history, medication, allergy.Patient is on medication for high blood pressure and diabetes. MD complaint: altered mental status Onset (ago): unknown Timing confirmed by: other Severity: severe Consistency of symptoms: constant Context: unknown Treatments prior to arrival: IV fluid and oxygen Related Data Home Medications Medication Instructions Recorded Confirmed aspirin [Aspir-81] 81 mg PO DAILY 05/24/18 05/24/18 doxazosin 4 mg PO DAILY 05/24/18 05/24/18 finasteride 5 mg PO DAILY 05/24/18 05/24/18 lisinopril 5 mg PO DAILY 05/24/18 05/24/18 metformin 500 mg PO BID 05/24/18 05/24/18 Allergies Allergy/AdvReac Type Severity Reaction Status Date / Time No Known Allergies Allergy Verified 05/24/18 13:04 Review of Systems ROS Unobtainable unobtainable due to mental status PMFSH Medical History Medical History Medical history unknown (Acute) Surgical history unknown (Acute) Social History Social History Substance History: Unable to Obtain Smoking Status: Unknown if ever smoked How Often Do You Have a Drink Containing Alcohol: Unable to Obtain Recent Travel in [facility] within the Last 8 Weeks: No Immunization History Tetanus Immunization: Unable to Assess Hx Influenza Vaccine This Season: Unable to Assess Exam Narrative Exam Narrative: GENERAL: Well-nourished, well-developed patient. SKIN: Focused skin assessment warm/dry. HEAD: Normocephalic. EYES: Pupils pinpoint and nonreactive. NECK: Supple, trachea midline. No JVD or lymphadenopathy. CARDIOVASCULAR: Regular rate and rhythm without murmurs, gallops, or rubs. RESPIRATORY: No spontaneous respiration. Patient was assisted with bag-valve- mask upon arrival. GASTROINTESTINAL: Abdomen soft, non-tender, nondistended. MUSCULOSKELETAL: No cyanosis, or edema. BACK: Nontender without obvious deformity. No CVA tenderness. Neurologic exam: Patient unresponsive. Deep tendon reflexes 1+ equal. Negative Babinski. Course Initial Documented Vital Signs Temperature 93.1 F L 05/24/18 12:38 Pulse Rate 148 H 05/24/18 12:38 Respiratory Rate 4 L 05/24/18 12:38 Blood Pressure 93/50 L 05/24/18 12:38 Pulse Oximetry 99 05/24/18 12:38 Last Documented Vital Signs Temperature 94.3 F L 05/24/18 14:54 Pulse Rate 81 05/24/18 14:54 Respiratory Rate 18 05/24/18 14:54 Blood Pressure 100/70 05/24/18 14:54 Pulse Oximetry 95 05/24/18 14:54 Procedures Catheter Insertion (Urinary) Date of Insertion: 05/24/18 Time of Insertion: 13:35 Reason for placing indwelling catheter: Hourly intake/output Central Line Placement Right Femoral: Time Out Performed: Yes Patient Placed on Monitor/Pulse Ox: Yes MD Prep: mask, gown and gloves Central Line Prep: Povidone-Iodine 1% Ultrasound Used for Placement: Yes Central Line Lumen Inserted: triple Post Procedure: sterile dressing applied Patient Tolerated Procedure: no complications Complications: none Intubation Time Out Performed: Yes Sedative: etomidate Mg Given: 20 Paralytic: succinylcholine Mg Given: 100 Assist Device Used: fiber optic device ET Tube Size: 7.5 ET Tube Uncuffed: No Tube Secured Location: lips Tube Placement Confirmation: visualized tube passing through cords, equal breath sounds bilaterally, no breath sounds over epigastrium and confirmation by capnometry Patient Tolerated Procedure: well Intubation Complications: none Critical Care Time Critical Care Time: Yes Attestation: Aggregate critical care time was 60minutes. Time to perform other separately billable procedures was not included in the critical care time. My time did not include minutes spent treating any other patients simultaneously or on activities that did not directly contribute to the patient's treatment. The services I provided to this patient were to treat and/or prevent clinically significant deterioration that could result in: I provided critical care services requiring my management, as noted below: Chart data review, documentation time, medication orders and management, vital sign assessments/reviewing monitor data, ordering and reviewing lab tests, ordering and interpreting/reviewing x-rays and diagnostic studies, care of the patient and discussion of the patient with the admitting physicians. Sign Out Sign Out Data: Patient Sign Out occurred on 05/24/18 at 13:53. Patient's care was discussed, and care was transferred from Iban Szymanski to Keith Samaniego. Sign Out Comment: Patient will be signed out that the light bone. Patient was found unresponsive at home. Patient was intubated in the ED and central line placement right femoral vein. Patient was given IV fluid and antibiotic. Last updated by Iban Szymanski MD at 05/24/18 13:47 Post-Handoff Eval: Chest x-ray does not show any acute infiltrates, but is consistent with COPD changes ET tube in place CBC shows leukocytosis with left shift no evidence of any major anemia there is microcytosis and normal platelet count Coagulation profile is within normal limits ABG postintubation shows mixed acidosis of pH of 7.12, PCO2 56 PaO2 507 Ammonia level slightly elevated at 47 UA is not consistent with UTI Tox screen is negative cxr neg for ptx/infiltrate or pleural effusion repeat lactic decreased to 3.1 neprhologist consulted care turned over to corporate administrative assistant hyperosmolar coma due to gluc 1000 renal failure, hyperkalemia, hypernatremia, NIH Stroke Scale NIH Stroke Scale Level of Consciousness: 3-Coma / Unresponsive Orientation Questions: 2-Neither task correct Responds to Commands: 2-Neither task correct Gaze Eye Movement: 2-Complete gaze palsy Visual Mercer: 0-No visual field defect Facial Movement: 0-Normal Motor Functions Arm LEFT: 3-No effort against gravity Motor Functions Arm RIGHT: 3-No effort against gravity Motor Functions Leg LEFT: 3-No effort against gravity Motor Functions Leg RIGHT: 3-No effort against gravity Limb Ataxia: 0-No ataxia Sensory Loss: 0-No sensory loss Best Language: 3-Mute or global aphasia Articulation: UN-Intubated / Barriers Extinction or Inattention Sensory: 0-Absent Total: 24 Medical Decision Making MDM Narrative Medical decision making narrative: 72-year-old male was brought in by EMS unresponsive and no respiration effort. Patient was hypotensive and hypothermia. Patient was intubated. Right femoral vein triple lumen central line placement. Patient was given 2 L IV fluid normal saline solution. Vancomycin 1 g IV. Zosyn 3.375 g IV. Septic shock workup in progress. Differential Diagnosis Differential Diagnosis: Differential diagnosis including septic shock, TIA, CVA , electrolyte imbalance, dehydration, [place], GI bleed. Lab Data Result diagrams: 05/24/18 13:00 05/24/18 13:00 Lab Results 05/24/18 05/24/18 05/24/18 Range/Units 13:00 13:00 13:00 WBC 20.2 H (4.0-11.0) th/mm3 RBC 6.17 H (4.50-5.90) mil/mm3 Hgb 18.5 H (13.0-17.0) gm/dL Hct 64.1 H (39.0-51.0) % MCV 103.9 H (80.0-100.0) fL MCH 30.0 (27.0-34.0) pg MCHC 28.9 L (32.0-36.0) % RDW 15.5 (11.6-17.2) % Plt Count 192 (150-450) th/mm3 MPV 11.3 H (7.0-11.0) fL Neut % (Auto) 89.6 H (16.0-70.0) % Lymph % (Auto) 3.7 L (9.0-44.0) % [place] % (Auto) 6.4 (0.0-8.0) % Eos % (Auto) 0.0 (0.0-4.0) % Baso % (Auto) 0.3 (0.0-2.0) % Neut # (Auto) 18.1 H (1.8-7.7) th/mm3 Lymph # (Auto) 0.7 L (1.0-4.8) th/mm3 [place] # (Auto) 1.3 H (0.0-0.9) th/mm3 Eos # (Auto) 0.0 (0.0-0.4) th/mm3 Baso # (Auto) 0.1 (0.0-0.2) th/mm3 WBC Differential . Differential Comment Auto diff final PT 11.3 (9.8-11.6) sec INR 1.1 Ratio APTT 25.7 (24.3-30.1) sec Puncture Site Patient Temperature O2 Saturation (90-100) % ABG pH (7.380-7.420) ABG pCO2 (38-42) mmHg ABG pO2 (61-120) mmHg ABG HCO3 (22-26) mmol/L ABG O2 Content (12.0-20.0) Vol % ABG Base Excess (-2-2) mmol/L ABG Methemoglobin (0-2) % Davon Test Hemoglobin (12.0-16.0) G/DL Carboxyhemoglobin (0-4) % O2 Delivery Device Vent Setting Inspired O2 % Critical Value Sodium (136-145) meq/L Potassium (3.5-5.1) meq/L Chloride (98-107) meq/L Carbon Dioxide (21.0-32.0) meq/L Anion Gap (5-15) meq/L BUN (7-18) mg/dL Creatinine (0.60-1.30) mg/dL Estimated GFR (>89) mL/min Random Glucose (74-106) mg/dL Lactic Acid (0.4-2.0) mmol/L Calcium (8.5-10.1) mg/dL Total Bilirubin (0.2-1.0) mg/dL AST (15-37) U/L ALT (12-78) U/L Alkaline Phosphatase (45-117) U/L Ammonia (11-32) mcmol/L Total Creatine Kinase (39-308) U/L CK-MB (CK-2) (0.5-3.6) ng/mL CK-MB (CK-2) % (0.0-4.0) % Troponin I (0.02-0.05) ng/mL Total Protein (6.4-8.2) g/dL Albumin (3.4-5.0) g/dL TSH 1.290 (0.358-3.740) uIU/mL Urine Color (Yellw/Straw) Urine Clarity (Clear) Urine pH (5.0-8.5) Ur Specific [place] (1.002-1.035) Urine Protein (Neg-Trace) mg/dL Urine Glucose (UA) (Negative) mg/dL Urine Ketones (Negative) mg/dL Urine Occult Blood (Negative) Urine Nitrate (Negative) Urine Bilirubin (Negative) Urine Urobilinogen (Less than 2) mg/dL Ur Leukocyte Esterase (Negative) Urine RBC (0-3) /hpf Urine WBC (0-5) /hpf Urine Mucus (Occasional) /lpf Micro UA Comment Urine Culture Comments Urine Opiates Screen (Neg) Ur Barbiturates Screen (Neg) Ur Amphetamines Screen (Neg) U Benzodiazepines Scrn (Neg) Urine Cocaine Screen (Neg) U Cannabinoids Screen (Neg) Serum Alcohol Less than 3 (0-5) mg/dL 05/24/18 05/24/18 05/24/18 Range/Units 13:00 13:00 13:10 WBC (4.0-11.0) th/mm3 RBC (4.50-5.90) mil/mm3 Hgb (13.0-17.0) gm/dL Hct (39.0-51.0) % MCV (80.0-100.0) fL MCH (27.0-34.0) pg MCHC (32.0-36.0) % RDW (11.6-17.2) % Plt Count (150-450) th/mm3 MPV (7.0-11.0) fL Neut % (Auto) (16.0-70.0) % Lymph % (Auto) (9.0-44.0) % [place] % (Auto) (0.0-8.0) % Eos % (Auto) (0.0-4.0) % Baso % (Auto) (0.0-2.0) % Neut # (Auto) (1.8-7.7) th/mm3 Lymph # (Auto) (1.0-4.8) th/mm3 [place] # (Auto) (0.0-0.9) th/mm3 Eos # (Auto) (0.0-0.4) th/mm3 Baso # (Auto) (0.0-0.2) th/mm3 WBC Differential Differential Comment PT (9.8-11.6) sec INR Ratio APTT (24.3-30.1) sec Puncture Site Patient Temperature O2 Saturation (90-100) % ABG pH (7.380-7.420) ABG pCO2 (38-42) mmHg ABG pO2 (61-120) mmHg ABG HCO3 (22-26) mmol/L ABG O2 Content (12.0-20.0) Vol % ABG Base Excess (-2-2) mmol/L ABG Methemoglobin (0-2) % [place]on Test Hemoglobin (12.0-16.0) G/DL Carboxyhemoglobin (0-4) % O2 Delivery Device Vent Setting Inspired O2 % Critical Value Sodium 156 H* (136-145) meq/L Potassium 6.7 H* (3.5-5.1) meq/L Chloride 119 H (98-107) meq/L Carbon Dioxide 16.2 L (21.0-32.0) meq/L Anion Gap 21 H (5-15) meq/L BUN 170 H (7-18) mg/dL Creatinine 6.79 H (0.60-1.30) mg/dL Estimated GFR 10 L (>89) mL/min Random Glucose 1010 H* (74-106) mg/dL Lactic Acid 4.9 H* (0.4-2.0) mmol/L Calcium 7.7 L (8.5-10.1) mg/dL Total Bilirubin 0.5 (0.2-1.0) mg/dL AST 79 H (15-37) U/L ALT 36 (12-78) U/L Alkaline Phosphatase 88 (45-117) U/L Ammonia (11-32) mcmol/L Total Creatine Kinase 2630 H (39-308) U/L CK-MB (CK-2) 26.7 H (0.5-3.6) ng/mL CK-MB (CK-2) % 1.0 (0.0-4.0) % Troponin I 0.02 (0.02-0.05) ng/mL Total Protein 6.3 L (6.4-8.2) g/dL Albumin 2.6 L (3.4-5.0) g/dL TSH (0.358-3.740) uIU/mL Urine Color Yellow (Yellw/Straw) Urine Clarity Hazy H (Clear) Urine pH 5.0 (5.0-8.5) Ur Specific [place] 1.022 (1.002-1.035) Urine Protein Negative (Neg-Trace) mg/dL Urine Glucose (UA) 500 or greater (Negative) mg/dL Urine Ketones Negative (Negative) mg/dL Urine Occult Blood Negative (Negative) Urine Nitrate Negative (Negative) Urine Bilirubin Negative (Negative) Urine Urobilinogen Less than 2 (Less than 2) mg/dL Ur Leukocyte Esterase Negative (Negative) Urine RBC Less than 1 (0-3) /hpf Urine WBC 1 (0-5) /hpf Urine Mucus Few H (Occasional) /lpf Micro UA Comment Cath-culture not ind Urine Culture Comments Cath-cult not ind Urine Opiates Screen (Neg) Ur Barbiturates Screen (Neg) Ur Amphetamines Screen (Neg) U Benzodiazepines Scrn (Neg) Urine Cocaine Screen (Neg) U Cannabinoids Screen (Neg) Serum Alcohol (0-5) mg/dL 05/24/18 05/24/18 05/24/18 Range/Units 13:10 13:15 13:25 WBC (4.0-11.0) th/mm3 RBC (4.50-5.90) mil/mm3 Hgb (13.0-17.0) gm/dL Hct (39.0-51.0) % MCV (80.0-100.0) fL MCH (27.0-34.0) pg MCHC (32.0-36.0) % RDW (11.6-17.2) % Plt Count (150-450) th/mm3 MPV (7.0-11.0) fL Neut % (Auto) (16.0-70.0) % Lymph % (Auto) (9.0-44.0) % [place] % (Auto) (0.0-8.0) % Eos % (Auto) (0.0-4.0) % Baso % (Auto) (0.0-2.0) % Neut # (Auto) (1.8-7.7) th/mm3 Lymph # (Auto) (1.0-4.8) th/mm3 [place] # (Auto) (0.0-0.9) th/mm3 Eos # (Auto) (0.0-0.4) th/mm3 Baso # (Auto) (0.0-0.2) th/mm3 WBC Differential Differential Comment PT (9.8-11.6) sec INR Ratio APTT (24.3-30.1) sec Puncture Site Left brachial Patient Temperature 98.6 O2 Saturation 98 (90-100) % ABG pH 7.12 L* (7.380-7.420) ABG pCO2 56 H* (38-42) mmHg ABG pO2 507 H (61-120) mmHg ABG HCO3 17 L (22-26) mmol/L ABG O2 Content 25.5 H (12.0-20.0) Vol % ABG Base Excess -10.6 L (-2-2) mmol/L ABG Methemoglobin 0.5 (0-2) % [place] Test Present Hemoglobin 17.5 H (12.0-16.0) G/DL Carboxyhemoglobin 0.9 (0-4) % O2 Delivery Device Ventilator Vent Setting Prvc/ac Inspired O2 100 % Critical Value Yes Sodium (136-145) meq/L Potassium (3.5-5.1) meq/L Chloride (98-107) meq/L Carbon Dioxide (21.0-32.0) meq/L Anion Gap (5-15) meq/L BUN (7-18) mg/dL Creatinine (0.60-1.30) mg/dL Estimated GFR (>89) mL/min Random Glucose (74-106) mg/dL Lactic Acid (0.4-2.0) mmol/L Calcium (8.5-10.1) mg/dL Total Bilirubin (0.2-1.0) mg/dL AST (15-37) U/L ALT (12-78) U/L Alkaline Phosphatase (45-117) U/L Ammonia 47 H (11-32) mcmol/L Total Creatine Kinase (39-308) U/L CK-MB (CK-2) (0.5-3.6) ng/mL CK-MB (CK-2) % (0.0-4.0) % Troponin I (0.02-0.05) ng/mL Total Protein (6.4-8.2) g/dL Albumin (3.4-5.0) g/dL TSH (0.358-3.740) uIU/mL Urine Color (Yellw/Straw) Urine Clarity (Clear) Urine pH (5.0-8.5) Ur Specific [place] (1.002-1.035) Urine Protein (Neg-Trace) mg/dL Urine Glucose (UA) (Negative) mg/dL Urine Ketones (Negative) mg/dL Urine Occult Blood (Negative) Urine Nitrate (Negative) Urine Bilirubin (Negative) Urine Urobilinogen (Less than 2) mg/dL Ur Leukocyte Esterase (Negative) Urine RBC (0-3) /hpf Urine WBC (0-5) /hpf Urine Mucus (Occasional) /lpf Micro UA Comment Urine Culture Comments Urine Opiates Screen Neg (Neg) Ur Barbiturates Screen Neg (Neg) Ur Amphetamines Screen Neg (Neg) U Benzodiazepines Scrn Neg (Neg) Urine Cocaine Screen Neg (Neg) U Cannabinoids Screen Neg (Neg) Serum Alcohol (0-5) mg/dL 05/24/18 Range/Units 16:00 WBC (4.0-11.0) th/mm3 RBC (4.50-5.90) mil/mm3 Hgb (13.0-17.0) gm/dL Hct (39.0-51.0) % MCV (80.0-100.0) fL MCH (27.0-34.0) pg MCHC (32.0-36.0) % RDW (11.6-17.2) % Plt Count (150-450) th/mm3 MPV (7.0-11.0) fL Neut % (Auto) (16.0-70.0) % Lymph % (Auto) (9.0-44.0) % [place] % (Auto) (0.0-8.0) % Eos % (Auto) (0.0-4.0) % Baso % (Auto) (0.0-2.0) % Neut # (Auto) (1.8-7.7) th/mm3 Lymph # (Auto) (1.0-4.8) th/mm3 [place] # (Auto) (0.0-0.9) th/mm3 Eos # (Auto) (0.0-0.4) th/mm3 Baso # (Auto) (0.0-0.2) th/mm3 WBC Differential Differential Comment PT (9.8-11.6) sec INR Ratio APTT (24.3-30.1) sec Puncture Site Patient Temperature O2 Saturation (90-100) % ABG pH (7.380-7.420) ABG pCO2 (38-42) mmHg ABG pO2 (61-120) mmHg ABG HCO3 (22-26) mmol/L ABG O2 Content (12.0-20.0) Vol % ABG Base Excess (-2-2) mmol/L ABG Methemoglobin (0-2) % [place] Test Hemoglobin (12.0-16.0) G/DL Carboxyhemoglobin (0-4) % O2 Delivery Device Vent Setting Inspired O2 % Critical Value Sodium (136-145) meq/L Potassium (3.5-5.1) meq/L Chloride (98-107) meq/L Carbon Dioxide (21.0-32.0) meq/L Anion Gap (5-15) meq/L BUN (7-18) mg/dL Creatinine (0.60-1.30) mg/dL Estimated GFR (>89) mL/min Random Glucose (74-106) mg/dL Lactic Acid 3.1 H (0.4-2.0) mmol/L Calcium (8.5-10.1) mg/dL Total Bilirubin (0.2-1.0) mg/dL AST (15-37) U/L ALT (12-78) U/L Alkaline Phosphatase (45-117) U/L Ammonia (11-32) mcmol/L Total Creatine Kinase (39-308) U/L CK-MB (CK-2) (0.5-3.6) ng/mL CK-MB (CK-2) % (0.0-4.0) % Troponin I (0.02-0.05) ng/mL Total Protein (6.4-8.2) g/dL Albumin (3.4-5.0) g/dL TSH (0.358-3.740) uIU/mL Urine Color (Yellw/Straw) Urine Clarity (Clear) Urine pH (5.0-8.5) Ur Specific [place] (1.002-1.035) Urine Protein (Neg-Trace) mg/dL Urine Glucose (UA) (Negative) mg/dL Urine Ketones (Negative) mg/dL Urine Occult Blood (Negative) Urine Nitrate (Negative) Urine Bilirubin (Negative) Urine Urobilinogen (Less than 2) mg/dL Ur Leukocyte Esterase (Negative) Urine RBC (0-3) /hpf Urine WBC (0-5) /hpf Urine Mucus (Occasional) /lpf Micro UA Comment Urine Culture Comments Urine Opiates Screen (Neg) Ur Barbiturates Screen (Neg) Ur Amphetamines Screen (Neg) U Benzodiazepines Scrn (Neg) Urine Cocaine Screen (Neg) U Cannabinoids Screen (Neg) Serum Alcohol (0-5) mg/dL Imaging Data Radiologist's impression: ITS Impressions Chest X-Ray 05/24/18 13:08 CONCLUSION: Status post placement of an endotracheal tube positioned approximately 2 cm above the thoracic aortic arch. No evidence of pneumothorax. Discharge Plan Discharge Disposition Patient Disposition: 30 Still Patient Discharge Condition Condition: Serious Discharge Details Discharge Problem: Septic shock, Coma, hyperosmolar nonketotic, Renal failure, Acute hyperkalemia , Acute hypernatremia, GI bleed Physicians Team ED Provider: Keith Samaniego Primary Care Provider: [facility] Attending Provider: Sanjay Burnette Other Providers: Judy Jackson Discharge Interventions Interventions: Vital Signs Last Done: 05/24/18 14:54 Status ED Status: Admitted Patient
[2018-05-24 13:33] LABS: ABG Base Excess -10.6 mmol/L (-2-2); ABG PCO2 56 mmHg (38-42); ABG PO2 507 mmHg (61-120)
[2018-05-24 13:42] LABS: Baso # (Auto) 0.1 th/mm3 (0.0-0.2); Baso % (Auto) 0.3 % (0.0-2.0); Hematocrit 64.1 % (39.0-51.0); Hemoglobin 18.5 gm/dL (13.0-17.0); Lymph # (Auto) 0.7 th/mm3 (1.0-4.8); Lymph % (Auto) 3.7 % (9.0-44.0); Mean Corpuscular Volume 103.9 fL (80.0-100.0); Mean Platelet Volume 11.3 fL (7.0-11.0); Mono # (Auto) 1.3 th/mm3 (0.0-0.9); Mono % (Auto) 6.4 % (0.0-8.0); Neut # (Auto) 18.1 th/mm3 (1.8-7.7); Neut % (Auto) 89.6 % (16.0-70.0); Platelet Count 192 th/mm3 (150-450); Red Blood Count 6.17 mil/mm3 (4.50-5.90); Red Cell Distribution Width 15.5 % (11.6-17.2); White Blood Count 20.2 th/mm3 (4.0-11.0)
--- NOTE | 2018-05-24 13:43 | XR ---
EXAM DATE: 05/24/2018 1:40 PM EDT AGE/SEX: 72 years / Male INDICATIONS: Short of breath, post intubation. CLINICAL DATA: This is the patient's initial encounter. Patient reports that signs and symptoms have been present for 1 day and indicates a pain score of Nonresponsive. MEDICAL/SURGICAL HISTORY: . Hypercholesterolemia. Hypertension. Chronic obstructive pulmonary d isease. Glasses. Cardiac disorders. Anticoagulant therapy. Asthma. Diabetes. Alcohol use. Tobacco use . BPH. None. [place] [facility] [place]. . FINDINGS: A single AP view of the chest demonstrates the lungs to be symmetrically aerated without evidence of mass, infiltrate or effusion. The endotracheal tube appears to be in good position. There is an NG t ube at the level of the GE junction. There is no evidence of pneumothorax. Tip of the endotracheal tu be is approximately 2 cm above the thoracic aortic arch. The cardiomediastinal contours are unremarka ble. Osseous structures are stable. CONCLUSION: Status post placement of an endotracheal tube positioned approximately 2 cm above the thoracic aortic arch. No evidence of pneumothorax. Electronically signed by: Kelton Boykin MD 05/24/2018 1:42 PM EDT
[2018-05-24 13:48] LABS: Mean Corpuscular HGB Conc 28.9 % (32.0-36.0)
[2018-05-24 13:51] LABS: Bilirubin,Urine Negative (Negative); Clarity,Urine Hazy (Clear); Color,Urine Yellow (Yellw/Straw); Glucose,Urine (UA) 500 or Greater mg/dL (Negative); Leukocyte Esterase,Urine Negative (Negative); Mucus,Urine Few /lpf (Occasional); Nitrite,Urine Negative (Negative); Specific Gravity,Urine 1.022 (1.002-1.035)
[2018-05-24 13:53] LABS: Activated Partial Thrombo Time 25.7 sec (24.3-30.1); INR 1.1 Ratio; Prothrombin Time 11.3 sec (9.8-11.6)
[2018-05-24 13:53] LABS: Amphetamine Screen,Urine Neg (Neg); Barbiturate Screen,Urine Neg (Neg); Cannabinoid Screen,Urine Neg (Neg); Cocaine Screen,Urine Neg (Neg); Opiate Screen,Urine Neg (Neg)
--- NOTE | 2018-05-24 14:28 | ECG ---
Date Performed: 05/24/2018 Time Performed: 12:48:36 PTAGE: 72 years EKG: Unclear EKG as I do think there has been mistakes made in the limb lead placement. I would repeat the EKG. PREVIOUS TRACING : 01/19/2018 12.48 DOCTOR: Brenton Burgess Interpretating Date/Time 05/24/2018 14:28:25
[2018-05-24] MEDS ORDERED: Norepinephrine Inj 4 MG/4 ML Ampul ONE (14:46)
[2018-05-24] MEDS ORDERED: Acetaminophen 325 MG Tablet PO PRN (16:21)
[2018-05-24] MEDS ORDERED: Bisacodyl 10 MG Supp RECTAL PRN (16:21)
[2018-05-24] MEDS ORDERED: Dextrose 50% in Water 50 ML Vial IV.PUSH PRN ×3 (16:28→17:36)
[2018-05-24 16:43] LABS: Creatine Kinase 2630 U/L (39-308)
[2018-05-24 16:46] LABS: Alanine Aminotransferase 36 U/L (12-78); Albumin 2.6 g/dL (3.4-5.0); Alkaline Phosphatase 88 U/L (45-117); Anion Gap 21 meq/L (5-15); Aspartate Aminotransferase 79 U/L (15-37); Blood Urea Nitrogen 170 mg/dL (7-18); Calcium 7.7 mg/dL (8.5-10.1); Carbon Dioxide 16.2 meq/L (21.0-32.0); Chloride 119 meq/L (98-107); Creatine Kinase MB 26.7 ng/mL (0.5-3.6); Glomerular Filtration Rate 10 mL/min (>89); Total Protein 6.3 g/dL (6.4-8.2); Troponin I 0.02 ng/mL (0.02-0.05)
[2018-05-24 16:50] LABS: Sodium 156 meq/L (136-145)
[2018-05-24 16:51] LABS: Glucose,Random 1010 mg/dL (74-106); Potassium 6.7 meq/L (3.5-5.1)
[2018-05-24] MEDS ORDERED: Sodium Bicarbonate 8.4% Inj 50 MEQ/50 ML Syringe IV.PUSH ONE (16:58)
[2018-05-24] MEDS ORDERED: Calcium Gluconate Inj 1 GM in Sodium Chlor 0.9% Inj 100 ML IV.SIG ONE (16:59)
[2018-05-24] MEDS ORDERED: Vancomycin Consult Pharmacy 1 EACH OTHER SCH (17:00)
[2018-05-24] MEDS ORDERED: Insulin Regular (For Infusion) 100 UNIT in Sodium Chlor 0.9% Inj 99 ML IV.CONT PRN ×2 (17:07→17:16)
[2018-05-24] MEDS ORDERED: Calcium Chloride Inj 1 GM/10 ML Syringe ONE (17:59)
[2018-05-24] MEDS ORDERED: Insulin NovoLIN Regular Correctional Sugar Inj SQ SCH (18:00)
[2018-05-24 18:13] LABS: Baso % (Auto) 0.1 % (0.0-2.0); Hematocrit 57.5 % (39.0-51.0); Hemoglobin 17.3 gm/dL (13.0-17.0); Lymph # (Auto) 1.1 th/mm3 (1.0-4.8); Lymph % (Auto) 5.7 % (9.0-44.0); Mean Corpuscular Hemoglobin 31.2 pg (27.0-34.0); Mean Corpuscular Volume 103.9 fL (80.0-100.0); Mean Platelet Volume 11.2 fL (7.0-11.0); Mono # (Auto) 0.4 th/mm3 (0.0-0.9); Mono % (Auto) 2.3 % (0.0-8.0); Neut # (Auto) 17.1 th/mm3 (1.8-7.7); Neut % (Auto) 91.9 % (16.0-70.0); Platelet Count 150 th/mm3 (150-450); Red Blood Count 5.53 mil/mm3 (4.50-5.90); Red Cell Distribution Width 16.9 % (11.6-17.2); White Blood Count 18.7 th/mm3 (4.0-11.0)
[2018-05-24] MEDS: Insulin Regular (For Infusion) 100 UNIT in Sodium Chlor 0.9% Inj 99 ML IV.CONT PRN (18:14)
[2018-05-24] MEDS: Pantoprazole Inj 80 MG in Sodium Chlor 0.9% Inj 100 ML IV.CONT SCH (18:14)
[2018-05-24 18:15] LABS: Mean Corpuscular HGB Conc 30.1 % (32.0-36.0)
--- NOTE | 2018-05-24 18:17 | MH ---
cc: Sanjay Burnette MD, Alaa MD DATE OF ADMISSION: 05/24/2018 HISTORY OF PRESENT ILLNESS: 1. The patient is a 72-year-old male with a past medical history of hypertension and diabetes mellitus who presented to [facility] ED after he was found unresponsive at home by EMS. EMS received a call from a well-check. Bag valve mask ventilation assisted respirations and patient was found hypotensive, and hypothermic as well. He was transported to the ED for evaluation. On arrival, the patient was hypothermic with a temperature of 93.1 and hypotensive with a blood pressure of 93/50. He was intubated and placed on full mechanical ventilation. In the ED, the patient received 3 liters of crystalloids. Post-intubation, the patient had approximately 200 mL of coffee-ground emesis from the OG tube. His laboratory data is significant for leukocytosis with a WBC of 20 and acute renal failure with a BUN of 170, creatinine 6.79. In addition, the patient was hyperglycemic with a blood sugar of 1010. Other abnormal labs showed electrolyte abnormalities with a sodium level of 156, potassium 6.7. In addition, the patient had lactic acidosis with initial lactic acid level 4.9, which decreased to 3.1 on repeat. Also, his total CK was elevated at 2630. He received Zosyn and 1 dose of vancomycin in the ER for leukocytosis. ABG post-intubation showed a pH of 7.12, CO2 of 56, PaO2 of 507, bicarbonate 17, saturation of 98% on PRVC rate of 18, tidal volume 450, PEEP of 5, I time 1.0 and FiO2 of 40%. The patient is scheduled to undergo CT scan of the brain, abdomen and pelvis without contrast. Also nephrology service has been notified by the ED physician, Dr. Moreno. Right femoral central line was placed by ED. PAST MEDICAL HISTORY: Hypertension, hyperlipidemia. PAST SURGICAL HISTORY: Unknown. SOCIAL HISTORY: Unobtainable. FAMILY HISTORY: Unobtainable. MEDICATIONS: 1. Metformin. 2. Lisinopril. 3. Doxazosin. 4. Aspirin. 5. Finasteride. ALLERGIES: NO KNOWN DRUG ALLERGIES. REVIEW OF SYSTEMS: Unobtainable. PHYSICAL EXAMINATION: GENERAL: A 72-year-old male, intubated, critically ill and on Levophed. VITAL SIGNS: Temperature 93.1 rectally, pulse of 94, blood pressure 88/59, saturation 98%. Vent settings PRVC rate of 18, tidal volume 450, I time 1, PEEP 5, FIO2 40%. HEENT: Atraumatic and normocephalic. Pupils are equal, round, reactive to light and accommodation. Extraocular muscles intact. Conjunctivae pink. Nonicteric sclerae. Dry mucous membranes. NECK: Supple. No JVD, adenopathy, or thyromegaly. Trachea in the midline. CARDIOVASCULAR: Regular rate and rhythm. Normal S1, S2. No murmurs, rubs or gallops noted. PULMONARY: Bilateral equal entry. No rales or wheezing. ABDOMEN: Soft. Mild tenderness on palpation. Positive bowel sounds. EXTREMITIES: No cyanosis, clubbing, edema. NEUROLOGIC: Intubated. LABORATORY DATA: WBC 20, hemoglobin 18, hematocrit 64, platelet count of 192. Sodium 156, potassium 6.7, chloride 119, CO2 of 16, BUN 170, creatinine 6.79, glucose of 1010. Lactic acid 4.93, 3.1 on repeat. AST 79, ALT 36, total bilirubin 0.5. Ammonia 47. Total CK 2630. Troponin 0.02, CK-MB 26.7, TSH 1.29. ABG: PH 7.12, CO2 of 56, pO2 of 507, bicarbonate of 17, saturations 98%. INR 1.1. PT 11.3, PTT 25.7. Urinalysis negative for ketones, negative leukocyte esterase. Urine drug screen negative. RADIOGRAPHIC STUDIES: A chest x-ray post-intubation showed ET tube 2 cm above the valentine. No evidence of any mass, infiltrate, or effusion. IMPRESSION: 1. Acute hypercapnic respiratory failure. 2. Encephalopathy. 3. Lactic acidemia. 4. Leukocytosis. 5. Acute renal failure. 6. Nonketotic hyperosmolar hyperglycemia. 7. Electrolyte abnormalities, which include hypernatremia and Hyperkalemia. 8. Elevated CK. 9. Dehydration. 10. Questionable gastrointestinal bleed. 11. History of hypertension. 12. History of diabetes mellitus. RECOMMENDATIONS: 1. Monitor neuro status closely and fentanyl infusion for sedation. His urine drug screen is negative and the patient is scheduled to undergo CT scan of the brain without contrast for altered mental status. 2. Continue with vent support and maintain sats above 92%. 3. Bronchodilators in the form of DuoNeb every 6 hours and will initiate intensive care unit vent bundle. 4. Increase respiratory rate to 22 and tidal volume 500. Repeat ABG. 5. Continue with Levophed. Monitor heart rate and blood pressure closely and maintain MAP greater than 65 mmHg. The patient received 3 liters of crystalloids. We will place on normal saline at 150 mL an hour. 6. Serial lactic acid. Monitor until clear. 7. Monitor renal function I's and O's and avoid nephrotoxins. We will treat hyperkalemia with 2 amps of sodium bicarbonate, 1 amp of calcium gluconate, 8 units of regular IV insulin. We will consult nephrology service and continue with IV hydration as stated above. 8. Monitor electrolytes closely every 6 hours. 9. Keep n.p.o. for now and continue with Protonix drip as ordered by emergency department. We will consult gastroenterology service. The patient might need upper endoscopy when stable. We will defer to gastroenterology. Monitor liver function tests. 10. The patient is scheduled for a CT scan of the abdomen and pelvis without contrast. We will followup. 11. Continue with broad spectrum antibiotics in the form of vancomycin and Zosyn. Adjust doses of antibiotics per renal function and monitor for signs of infection, which include fever and WBC. Follow up on blood cultures. 12. Start insulin drip and monitor electrolytes closely. 13. Monitor complete blood count and for signs of bleeding. 14. Gastrointestinal prophylaxis with Protonix drip. Deep vein thrombosis prophylaxis with sequential compression devices for now. 15. The patient is critically ill with respiratory failure, renal failure, severe sepsis on Levophed and multiple organ injury. 16. Right femoral central line was placed by emergency department physician. Critical care time 60 minutes excluding procedures. Further recommendations will be based on hospital course. MD MADAN Oropeza/ , 05:36 PM , 06:14 PM
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
[2018-05-24 18:43] LABS: ABG Base Excess -9.2 mmol/L (-2-2); ABG PCO2 44 mmHg (38-42); ABG PO2 124 mmHG (61-120)
[2018-05-24 18:43] LABS: Calcium 7.3 mg/dL (8.5-10.1); Carbon Dioxide 17.4 meq/L (21.0-32.0); Potassium 6.2 meq/L (3.5-5.1)
[2018-05-24] MEDS: Sod Chloride 0.9% Inj 1,000 ML IV.CONT SCH (18:56)
[2018-05-24 19:15] LABS: Total Protein 6.5 g/dL (6.4-8.2)
[2018-05-24 19:55] LABS: Calcium 8.3 mg/dL (8.5-10.1); Carbon Dioxide 19.4 meq/L (21.0-32.0); Potassium 4.4 meq/L (3.5-5.1)
--- NOTE | 2018-05-24 20:47 | CT ---
EXAM DATE: 05/24/2018 8:42 PM EDT AGE/SEX: 72 years / Male INDICATIONS: Altered mental status. Patient found unresponsive. CLINICAL DATA: This is the patient's initial encounter. Patient reports that signs and symptoms have been present for 1 day and indicates a pain score of Nonresponsive. MEDICAL/SURGICAL HISTORY: Non-responsive. Non-responsive. RADIATION DOSE: 47.67 CTDI (mGy) ;Tabletop exam ; Patient motion COMPARISON: [facility] [place], CT BRAIN W/O CONTRAST, 01/19/2018. . TECHNIQUE: CT of the head without contrast. Using automated exposure control and adjustment of the mA and/or kV according to patient size, radiation dose was kept as low as reasonably achievable to ob tain optimal diagnostic quality images. DICOM format image data is available electronically for revi ew and comparison. FINDINGS: Ventricles are stable and symmetric, mildly prominent. There is mild patchy diminished attenuation in periventricular white matter which appears chronic. No definite evidence of intracranial hemorrhage or mass. Nothing to suggest acute infarction. Mild mucosal thickening in occasional facial sinuses. N o evidence of skull fracture. CONCLUSION: Stable brain appearance with no definite acute findings. Electronically signed by: Scooby Bhakta MD 05/24/2018 8:46 PM EDT
--- NOTE | 2018-05-24 20:52 | CT ---
EXAM DATE: 05/24/2018 8:46 PM EDT AGE/SEX: 72 years / Male INDICATIONS: Abdominal pain, sepsis. CLINICAL DATA: This is the patient's initial encounter. Patient reports that signs and symptoms have been present for 1 day and indicates a pain score of Nonresponsive. MEDICAL/SURGICAL HISTORY: Non-responsive. Non-responsive. RADIATION DOSE: 5.85 CTDI (mGy) COMPARISON: [facility] [place], [place] ABDOMEN & PELVIS W CONTRAST, 03/14/2013. . TECHNIQUE: Multiple contiguous axial images were obtained through the abdomen. Images were obtained using multiple row detector helical technique. Using automated exposure control and adjustment of the mA and/or kV according to patient size, radiation dose was kept as low as reasonably achievable to o btain optimal diagnostic quality images. DICOM format image data is available electronically for rev iew and comparison. FINDINGS: Lower Lungs: Minimal patchy infiltrate in the posterior left lung base. Liver: The liver has a homogeneous density without space-occupying lesion. There is no dilation of th e biliary tree. Stones and sludge in the gallbladder. Spleen: Homogeneous density without enlargement. Pancreas: Calcifications in the pancreatic head and uncinate 8. Kidneys: Normal in size and shape. No evidence of mass or hydronephrosis. Adrenal Glands: Unremarkable. Aorta: The aorta and proximal iliac vessels are grossly unremarkable without aneurysmal dilation. Bowel/Mesentery: The bowel loops are grossly unremarkable. The cecum and sigmoid colon have a normal configuration. Abdominal Wall: Intact. Retroperitoneum: No evidence of adenopathy in the retrocrural, para-aortic, or deep pelvic regions. Bladder: Decompressed with Mckeon catheter Reproductive Organs: No abnormal masses or calcifications seen. Inguinal: Right femoral venous line extending up to the level of the common iliac vein. Bony Structures: Unremarkable. CONCLUSION: 1. Gallstones. 2. No other definite acute CT findings in the abdomen or pelvis. Electronically signed by: Scooby Bhakta MD 05/24/2018 8:50 PM EDT
[2018-05-24] MEDS: Senna/Docusate Sodium 8.6/50 MG Tablet PO SCH (21:05)
[2018-05-24 21:14] LABS: Amorphous Sediment,Urine Few /hpf; Bilirubin,Urine Negative (Negative); Clarity,Urine Cloudy (Clear); Color,Urine Yellow (Yellw/Straw); Glucose,Urine (UA) 500 or Greater mg/dL (Negative); Leukocyte Esterase,Urine Negative (Negative); Mucus,Urine Few /lpf (Occasional); Nitrite,Urine Negative (Negative); Specific Gravity,Urine 1.022 (1.002-1.035)
[2018-05-24] MEDS: Vasopressin Inj 40 UNIT in Sodium Chlor 0.9% Inj 98 ML IV.CONT SCH (21:51)
[2018-05-25] MEDS: Piperacil/Tazo 4.5 GM Premix 4.5 GM/100 ML BAG IV.SIG SCH ×3 (00:17→08:12)
[2018-05-25] MEDS: Sod Chloride 0.9% Inj 1,000 ML IV.CONT SCH (00:31)
[2018-05-25] MEDS ORDERED: Sod Chloride 0.9% Inj 3,000 ML IV.SIG ONE (02:00)
[2018-05-25] MEDS: Insulin Regular (For Infusion) 100 UNIT in Sodium Chlor 0.9% Inj 99 ML IV.CONT PRN (02:27)
[2018-05-25] MEDS: Pantoprazole Inj 80 MG in Sodium Chlor 0.9% Inj 100 ML IV.CONT SCH ×2 (03:17→14:25)
[2018-05-25] MEDS ORDERED: Chlorhexidine Gluconate 2% 1 Pack (2 Cloths) TOPICAL PRN (04:00)
[2018-05-25] MEDS: Chlorhexidine Gluconate 2% 1 Pack (2 Cloths) TOPICAL SCH (04:33)
[2018-05-25 04:40] LABS: CKMB Percent 0.6 % (0.0-4.0); Calcium 6.7 mg/dL (8.5-10.1); Carbon Dioxide 18.3 meq/L (21.0-32.0); Creatine Kinase MB 71.5 ng/mL (0.5-3.6); Potassium 5.2 meq/L (3.5-5.1)
[2018-05-25 05:03] LABS: Total Protein 5.2 g/dL (6.4-8.2)
[2018-05-25] MEDS: Sodium Bicarbonate 8.4% Inj 150 MEQ in Water for Inj, Sterile 850 ML IV.CONT SCH ×3 (05:46→21:54)
--- NOTE | 2018-05-25 07:08 | P.PNCC ---
Subjective Subjective Remarks/Hospital Course: The patient is a 72-year-old male with a past medical history of hypertension and diabetes mellitus who presented to [facility] ED after he was found unresponsive at home by EMS. EMS received a call from a well-check. Bag valve mask ventilation assisted respirations and patient was found hypotensive, and hypothermic as well. He was transported to the ED for evaluation. On arrival, the patient was hypothermic with a temperature of 93.1 and hypotensive with a blood pressure of 93/50. He was intubated and placed on full mechanical ventilation. In the ED, the patient received 3 liters of crystalloids. Post-intubation, the patient had approximately 200 mL of coffee- ground emesis from the OG tube. His laboratory data is significant for leukocytosis with a WBC of 20 and acute renal failure with a BUN of 170, creatinine 6.79. In addition, the patient was hyperglycemic with a blood sugar of 1010. Other abnormal labs showed electrolyte abnormalities with a sodium level of 156, potassium 6.7. In addition, the patient had lactic acidosis with initial lactic acid level 4.9, which decreased to 3.1 on repeat. Also, his total CK was elevated at 2630. He received Zosyn and 1 dose of vancomycin in the ER for leukocytosis. ABG post-intubation showed a pH of 7.12, CO2 of 56, PaO2 of 507, bicarbonate 17, saturation of 98% on PRVC rate of 18, tidal volume 450, PEEP of 5, I time 1.0 and FiO2 of 40%. The patient is scheduled to undergo CT scan of the brain, abdomen and pelvis without contrast. Also nephrology service has been notified by the ED physician, Dr. Moreno. Right femoral central line was placed by ED. 05/25 Patient is intubated and sedated with Fentanyl infusion. On Levophed 12 mics , Vasopressin 0.01, insulin drip 1.5u/hr and bicarb drip. CT brain showed no acute findings, CT abd/pelvis showed gallstones no acute abnormalities. Objective Vital Signs / I&O: Vital Signs 05/24/18 12:38 05/24/18 12:40 05/24/18 13:09 Temperature 93.1 F L 93.2 F L Pulse Rate 148 H 77 Respiratory Rate 4 L 16 18 Blood Pressure 93/50 L 93/56 L Pulse Oximetry 99 95 05/24/18 13:10 05/24/18 13:15 05/24/18 14:54 Temperature 93.1 F L 94.3 F L Pulse Rate 81 Respiratory Rate 18 Blood Pressure 100/70 Pulse Oximetry 95 95 05/24/18 17:41 05/24/18 18:00 05/24/18 18:05 Temperature 99.0 F Pulse Rate 108 H 109 H Respiratory Rate 30 H 27 H Blood Pressure 88/62 L 103/69 Pulse Oximetry 98 100 05/24/18 18:10 05/24/18 18:15 05/24/18 18:20 Temperature Pulse Rate Respiratory Rate Blood Pressure 106/71 110/73 115/81 Pulse Oximetry 05/24/18 18:30 05/24/18 18:35 05/24/18 18:40 Temperature Pulse Rate Respiratory Rate Blood Pressure 96/69 L 100/70 91/63 L Pulse Oximetry 05/24/18 18:45 05/24/18 18:50 05/24/18 19:00 Temperature 98.8 F Pulse Rate 101 H Respiratory Rate 24 Blood Pressure 93/65 L 93/61 L 87/58 L Pulse Oximetry 97 05/24/18 19:35 05/24/18 19:36 05/24/18 20:00 Temperature Pulse Rate 119 H Respiratory Rate 24 24 24 Blood Pressure 75/54 L Pulse Oximetry 97 97 96 05/24/18 20:20 05/24/18 21:00 05/24/18 22:00 Temperature Pulse Rate 104 H 103 H Respiratory Rate 24 24 Blood Pressure 79/55 L 80/56 L Pulse Oximetry 98 97 97 05/24/18 22:08 05/24/18 22:15 05/24/18 22:23 Temperature Pulse Rate 105 H 117 H 134 H Respiratory Rate 9 L 24 Blood Pressure 79/55 L Pulse Oximetry 97 97 05/24/18 22:30 05/24/18 22:45 05/24/18 23:00 Temperature Pulse Rate 134 H 103 H 113 H Respiratory Rate 24 24 24 Blood Pressure 82/53 L 81/57 L 76/58 L Pulse Oximetry 97 98 97 05/24/18 23:15 05/24/18 23:30 05/24/18 23:45 Temperature Pulse Rate 105 H 104 H 111 H Respiratory Rate 24 24 24 Blood Pressure 77/58 L 73/56 L 72/51 L Pulse Oximetry 97 97 97 05/25/18 00:00 05/25/18 00:15 05/25/18 00:30 Temperature 99.3 F Pulse Rate 108 H 112 H 105 H Respiratory Rate 24 24 24 Blood Pressure 76/53 L 77/62 L 73/51 L Pulse Oximetry 95 96 96 05/25/18 00:45 05/25/18 01:00 05/25/18 01:02 Temperature Pulse Rate 104 H 105 H Respiratory Rate 24 24 24 Blood Pressure 74/50 L 86/54 L Pulse Oximetry 97 97 99 05/25/18 01:15 05/25/18 01:30 05/25/18 01:45 Temperature Pulse Rate 102 H 99 H 97 H Respiratory Rate 24 24 24 Blood Pressure 85/56 L 87/60 L 86/56 L Pulse Oximetry 97 98 98 05/25/18 02:00 05/25/18 02:15 05/25/18 02:30 Temperature Pulse Rate 95 H 96 H 96 H Respiratory Rate 24 24 24 Blood Pressure 93/62 L 102/62 101/65 Pulse Oximetry 98 99 98 05/25/18 02:45 05/25/18 03:00 05/25/18 03:06 Temperature Pulse Rate 97 H 96 H Respiratory Rate 24 24 24 Blood Pressure 97/69 L 105/68 Pulse Oximetry 99 99 99 05/25/18 03:15 05/25/18 03:30 05/25/18 03:45 Temperature Pulse Rate 96 H 96 H 95 H Respiratory Rate 24 24 24 Blood Pressure 112/73 106/70 108/70 Pulse Oximetry 99 99 99 05/25/18 04:00 05/25/18 04:15 05/25/18 04:30 Temperature 96.8 F L Pulse Rate 94 H 93 H 93 H Respiratory Rate 24 25 H 25 H Blood Pressure 117/77 109/78 107/70 Pulse Oximetry 100 100 100 05/25/18 04:45 05/25/18 05:00 05/25/18 05:15 Temperature Pulse Rate 93 H 93 H 94 H Respiratory Rate 25 H 25 H 25 H Blood Pressure 97/60 L 95/63 L 90/63 L Pulse Oximetry 99 99 99 05/25/18 05:30 05/25/18 05:45 05/25/18 06:00 Temperature Pulse Rate 93 H 92 H 92 H Respiratory Rate 26 H 26 H 25 H Blood Pressure 91/65 L 77/61 L 86/62 L Pulse Oximetry 99 99 99 05/25/18 06:15 Temperature Pulse Rate 92 H Respiratory Rate 25 H Blood Pressure 83/59 L Pulse Oximetry 99 Intake & Output 05/24/18 05/24/18 05/25/18 06:59 18:59 06:59 Intake Total 250 / 250 7451.5 / 7451.5 Output Total 150 / 150 Balance 250 / 250 7301.5 / 7301.5 Weight 64 kg 68.6 kg Intake: IV 250 / 250 7451.5 / 7451.5 NovoLIN R (IV Infusion) 100 112 / 112 UNIT In NS Inj 99 ML @ 7 UNITS/ HR 7 mls/hr IV.CONT TITRATE PRN Rx#:[id number] Protonix Inj 80 MG In NS Inj 124 / 124 100 ML @ 10 mls/hr IV.CONT CONT [facility] Rx#:[id number] NS Inj 1,000 ML @ 150 mls/hr IV 1999 .CONT .Q6H40M [facility] Rx#:[id number] Sodium Bicarbonate 8.4% Inj 150 104 / 104 MEQ In Sterile Water for Inj 850 ML @ 150 mls/hr IV.CONT . Q6H40M [facility] Rx#:[id number] Pitressin Inj 40 UNIT In NS Inj 13 / 13 98 ML @ 0.01 UNITS/MIN 1.5 mls /hr IV.CONT CONT [facility] Rx#: [id number] Levophed-Dextrose 4 mg/250 ml 250 / 250 664 / 664 Drip 4 mg In 250 ml @ 2 MCG/MIN 7.5 mls/hr IV.SIG TITRATE PRN Rx#:[id number] Zosyn 3.375 GM Premix 50 ML @ 50 / 50 100 mls/hr IV.SIG ONCE ONE Rx#: [id number] Zosyn 4.5 GM Premix 4.5 gm In 100 / 100 100 ml @ 200 mls/hr IV.SIG Q8H [facility] Rx#:[id number] NS Inj 3,000 ML @ As Directed 4000 / 4000 IV.SIG BOLUS ONE Rx#:[id number] Vancomycin Inj 1,250 MG In NS 262.5 / 262.5 Inj 250 ML @ 250 mls/hr IV.SIG ONCE ONE Rx#:[id number] fentaNYL 10 mcg/mL Premix Drip 2,500 mcg In 250 ml @ 50 MCG/HR 5 mls/hr IV.SIG TITRATE PRN Rx #:[id number] Output: Urine Amount (Catheter) 100 / 100 Indwelling Urethral Catheter 100 / 100 Gastric Drainage 50 / 50 Orogastric Tube 50 / 50 Other: # Bowel Movements 0 Weight On Admission 64 kg Result Diagrams: 05/24/18 17:50 05/25/18 07:53 Objective Remarks: GENERAL: Patient is 72 yo intubated critically ill on multiple pressors. SKIN: Warm and dry. HEAD: Normocephalic. EYES: No scleral icterus. No injection or drainage. NECK: Supple, trachea midline. No JVD or lymphadenopathy. CARDIOVASCULAR: Regular rate and rhythm without murmurs, gallops, or rubs. RESPIRATORY: Breath sounds equal bilaterally. No accessory muscle use. GASTROINTESTINAL: Abdomen soft, non-tender, nondistended. MUSCULOSKELETAL: No cyanosis, or edema. Neuro: Intubated, sedated Assessment and Plan - Assessment and Plan Plan: 1. Acute hypercapnic respiratory failure. 2. Encephalopathy. 3. Lactic acidemia. 4. Leukocytosis. 5. Acute renal failure. 6. Nonketotic hyperosmolar hyperglycemia. 7. Electrolyte abnormalities, which include hypernatremia and Hyperkalemia. 8. Elevated CK. 9. Dehydration. 10. Questionable gastrointestinal bleed. 11. History of hypertension. 12. History of diabetes mellitus. Plan Neuro: Monitor neuro status , on fentanyl infusion for sedation. Daily sedation vacation. UDS is negative. CT brain - no acute intracranial findings. Pulm: Continue with vent support and maintain sats > 92%. Bronchodilators. ICU vent bundle. Increase TV 600 and check ABG CV: On Levophed and Vasopressin, wean off pressors as eduardo keep MAP> 65 mmHg. Given total 7L crystalloids since admission. On bicarb drip. Serial lactic acid monitoring until clear. : Monitor renal function I's and O's and avoid nephrotoxins. Cr: 6.0 from 6.7, K: 5.2 from 6.7 Renal is following, on SW+3amps bicarb @150ml/hr, check renal US. Monitor CK's, add Free water 300ml Q4 GI: continue with Protonix drip for now, GI consulted. CT abd/pelvis last night showed gallstones, no acute findings. ID: Continue with abx(vancomycin and Zosyn). Follow up on blood cultures. Endo: On Insulin drip for glycemic control. Monitor lytes closely Heme: Monitor CBC GI prophylaxis- on Protonix drip. DVT prophylaxis with SCD's Consult palliative care to asses with goals of care Follow up on labs Patient is critically ill with respiratory failure, renal failure, septic shock on multiple pressors and multiple organ injury. Right femoral central line placed by ED 05/24 CCT 40 mins
[2018-05-25] MEDS: Senna/Docusate Sodium 8.6/50 MG Tablet PO SCH ×2 (08:12→21:55)
[2018-05-25 08:38] LABS: Albumin 2.1 g/dL (3.4-5.0); Calcium 6.9 mg/dL (8.5-10.1); Carbon Dioxide 21.9 meq/L (21.0-32.0); Potassium 5.7 meq/L (3.5-5.1)
[2018-05-25 08:43] LABS: Total Protein 5.2 g/dL (6.4-8.2)
[2018-05-25 09:06] LABS: Baso # (Auto) 0.1 th/mm3 (0.0-0.2); Baso % (Auto) 0.5 % (0.0-2.0); Eos % (Auto) 0.1 % (0.0-4.0); Lymph # (Auto) 1.5 th/mm3 (1.0-4.8); Lymph % (Auto) 7.7 % (9.0-44.0); Mean Corpuscular HGB Conc 32.9 % (32.0-36.0); Mean Corpuscular Hemoglobin 30.9 pg (27.0-34.0); Mean Corpuscular Volume 93.9 fL (80.0-100.0); Mean Platelet Volume 10.7 fL (7.0-11.0); Mono # (Auto) 1.3 th/mm3 (0.0-0.9); Mono % (Auto) 6.9 % (0.0-8.0); Neut # (Auto) 16.1 th/mm3 (1.8-7.7); Neut % (Auto) 84.8 % (16.0-70.0); Platelet Count 83 th/mm3 (150-450); Red Cell Distribution Width 13.6 % (11.6-17.2)
[2018-05-25] MEDS ORDERED: Sodium Polystyrene Sulfonate/Sorbitol Liq 15 GM/60 ML UDC PO ONE ×2 (09:23→17:00)
[2018-05-25 09:27] LABS: Hemoglobin 15.1 gm/dL (13.0-17.0)
[2018-05-25 09:48] LABS: Lymphocytes 9 % (9-44); Monocytes 5 % (0-8)
[2018-05-25 09:49] LABS: Platelet Morphology Normal (Normal)
--- NOTE | 2018-05-25 10:15 | P.CONPAL ---
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 Amphetamines Screen U Benzodiazepines Scrn Urine Cocaine Screen U Cannabinoids Screen Serum Alcohol 05/24/18 05/24/18 05/24/18 22:03 23:03 23:59 WBC RBC Hgb Hct MCV MCH MCHC RDW Plt Count MPV Prelim Diff (Auto) Neut % (Auto) Lymph % (Auto) [place] % (Auto) Eos % (Auto) Baso % (Auto) Neut # (Auto) Lymph # (Auto) [place] # (Auto) Eos # (Auto) Baso # (Auto) WBC Differential Seg Neuts % (Manual) Band Neuts % (Manual) Lymphocytes % (Manual) Monocytes % (Manual) Abs Neuts (Manual) Differential Comment Platelet Estimate Platelet Morphology PT INR APTT Puncture Site Patient Temperature O2 Saturation ABG pH ABG pCO2 ABG pO2 ABG HCO3 ABG O2 Content ABG Base Excess ABG Methemoglobin Davon Test Hemoglobin Carboxyhemoglobin O2 Delivery Device Vent Setting Inspired O2 Critical Value Sodium Potassium Chloride Carbon Dioxide Anion Gap BUN Creatinine Estimated GFR POC Glucose 483 H* 411 H 368 H Random Glucose Lactic Acid Calcium Prot Corrected Calcium Total Bilirubin AST ALT Alkaline Phosphatase Ammonia Total Creatine Kinase CK-MB (CK-2) CK-MB (CK-2) % Troponin I Total Protein Albumin Beta-Hydroxybutyric Acd TSH Urine Color Urine Clarity Urine pH Ur Specific [place] Urine Protein Urine Glucose (UA) Urine Ketones Urine Occult Blood Urine Nitrate Urine Bilirubin Urine Urobilinogen Ur Leukocyte Esterase Urine RBC Urine WBC Amorphous Sediment Urine Mucus Micro UA Comment Urine Culture Comments Nasal Screen MRSA (PCR) Urine Opiates Screen Ur Barbiturates Screen Ur Amphetamines Screen U Benzodiazepines Scrn Urine Cocaine Screen U Cannabinoids Screen Serum Alcohol 05/25/18 05/25/18 05/25/18 01:03 01:20 01:45 WBC RBC Hgb Hct MCV MCH MCHC RDW Plt Count MPV Prelim Diff (Auto) Neut % (Auto) Lymph % (Auto) [place] % (Auto) Eos % (Auto) Baso % (Auto) Neut # (Auto) Lymph # (Auto) [place] # (Auto) Eos # (Auto) Baso # (Auto) WBC Differential Seg Neuts % (Manual) Band Neuts % (Manual) Lymphocytes % (Manual) Monocytes % (Manual) Abs Neuts (Manual) Differential Comment Platelet Estimate Platelet Morphology PT INR APTT Puncture Site Patient Temperature O2 Saturation ABG pH ABG pCO2 ABG pO2 ABG HCO3 ABG O2 Content ABG Base Excess ABG Methemoglobin Davon Test Hemoglobin Carboxyhemoglobin O2 Delivery Device Vent Setting Inspired O2 Critical Value Sodium Cancelled Potassium Cancelled Chloride Cancelled Carbon Dioxide Cancelled Anion Gap Cancelled BUN Cancelled Creatinine Cancelled Estimated GFR Cancelled POC Glucose 340 H 322 H Random Glucose Cancelled Lactic Acid Calcium Cancelled Prot Corrected Calcium Total Bilirubin AST ALT Alkaline Phosphatase Ammonia Total Creatine Kinase CK-MB (CK-2) CK-MB (CK-2) % Troponin I Total Protein Albumin Beta-Hydroxybutyric Acd TSH Urine Color Urine Clarity Urine pH Ur Specific [place] Urine Protein Urine Glucose (UA) Urine Ketones Urine Occult Blood Urine Nitrate Urine Bilirubin Urine Urobilinogen Ur Leukocyte Esterase Urine RBC Urine WBC Amorphous Sediment Urine Mucus Micro UA Comment Urine Culture Comments Nasal Screen MRSA (PCR) Urine Opiates Screen Ur Barbiturates Screen Ur Amphetamines Screen U Benzodiazepines Scrn Urine Cocaine Screen U Cannabinoids Screen Serum Alcohol 05/25/18 05/25/18 05/25/18 02:45 02:55 04:31 WBC RBC Hgb Hct MCV MCH MCHC RDW Plt Count MPV Prelim Diff (Auto) Neut % (Auto) Lymph % (Auto) [place] % (Auto) Eos % (Auto) Baso % (Auto) Neut # (Auto) Lymph # (Auto) [place] # (Auto) Eos # (Auto) Baso # (Auto) WBC Differential Seg Neuts % (Manual) Band Neuts % (Manual) Lymphocytes % (Manual) Monocytes % (Manual) Abs Neuts (Manual) Differential Comment Platelet Estimate Platelet Morphology PT INR APTT Puncture Site Patient Temperature O2 Saturation ABG pH ABG pCO2 ABG pO2 ABG HCO3 ABG O2 Content ABG Base Excess ABG Methemoglobin Davon Test Hemoglobin Carboxyhemoglobin O2 Delivery Device Vent Setting Inspired O2 Critical Value Sodium 163 H* D Potassium 5.2 H D Chloride 127 H D Carbon Dioxide 18.3 L Anion Gap 18 H BUN 153 H Creatinine 6.08 H Estimated GFR 11 L POC Glucose 214 H 142 H Random Glucose 308 H D Lactic Acid Calcium 6.7 L* Prot Corrected Calcium 7.7 L Total Bilirubin AST ALT Alkaline Phosphatase Ammonia Total Creatine Kinase 95244 H CK-MB (CK-2) 71.5 H CK-MB (CK-2) % 0.6 Troponin I Total Protein 5.2 L D Albumin Beta-Hydroxybutyric Acd TSH Urine Color Urine Clarity Urine pH Ur Specific [place] Urine Protein Urine Glucose (UA) Urine Ketones Urine Occult Blood Urine Nitrate Urine Bilirubin Urine Urobilinogen Ur Leukocyte Esterase Urine RBC Urine WBC Amorphous Sediment Urine Mucus Micro UA Comment Urine Culture Comments Nasal Screen MRSA (PCR) Urine Opiates Screen Ur Barbiturates Screen Ur Amphetamines Screen U Benzodiazepines Scrn Urine Cocaine Screen U Cannabinoids Screen Serum Alcohol 05/25/18 05/25/18 05/25/18 05:04 06:00 06:52 WBC RBC Hgb Hct MCV MCH MCHC RDW Plt Count MPV Prelim Diff (Auto) Neut % (Auto) Lymph % (Auto) [place] % (Auto) Eos % (Auto) Baso % (Auto) Neut # (Auto) Lymph # (Auto) [place] # (Auto) Eos # (Auto) Baso # (Auto) WBC Differential Seg Neuts % (Manual) Band Neuts % (Manual) Lymphocytes % (Manual) Monocytes % (Manual) Abs Neuts (Manual) Differential Comment Platelet Estimate Platelet Morphology PT INR APTT Puncture Site Patient Temperature O2 Saturation ABG pH ABG pCO2 ABG pO2 ABG HCO3 ABG O2 Content ABG Base Excess ABG Methemoglobin Davon Test Hemoglobin Carboxyhemoglobin O2 Delivery Device Vent Setting Inspired O2 Critical Value Sodium Potassium Chloride Carbon Dioxide Anion Gap BUN Creatinine Estimated GFR POC Glucose 127 H 121 H 133 H Random Glucose Lactic Acid Calcium Prot Corrected Calcium Total Bilirubin AST ALT Alkaline Phosphatase Ammonia Total Creatine Kinase CK-MB (CK-2) CK-MB (CK-2) % Troponin I Total Protein Albumin Beta-Hydroxybutyric Acd TSH Urine Color Urine Clarity Urine pH Ur Specific [place] Urine Protein Urine Glucose (UA) Urine Ketones Urine Occult Blood Urine Nitrate Urine Bilirubin Urine Urobilinogen Ur Leukocyte Esterase Urine RBC Urine WBC Amorphous Sediment Urine Mucus Micro UA Comment Urine Culture Comments Nasal Screen MRSA (PCR) Urine Opiates Screen Ur Barbiturates Screen Ur Amphetamines Screen U Benzodiazepines Scrn Urine Cocaine Screen U Cannabinoids Screen Serum Alcohol 05/25/18 05/25/18 05/25/18 07:53 07:53 08:19 WBC RBC Hgb Hct MCV MCH MCHC RDW Plt Count MPV Prelim Diff (Auto) Neut % (Auto) Lymph % (Auto) [place] % (Auto) Eos % (Auto) Baso % (Auto) Neut # (Auto) Lymph # (Auto) [place] # (Auto) Eos # (Auto) Baso # (Auto) WBC Differential Seg Neuts % (Manual) Band Neuts % (Manual) Lymphocytes % (Manual) Monocytes % (Manual) Abs Neuts (Manual) Differential Comment Platelet Estimate Platelet Morphology PT INR APTT Puncture Site Patient Temperature O2 Saturation ABG pH ABG pCO2 ABG pO2 ABG HCO3 ABG O2 Content ABG Base Excess ABG Methemoglobin Davon Test Hemoglobin Carboxyhemoglobin O2 Delivery Device Vent Setting Inspired O2 Critical Value Sodium 162 H* Potassium 5.7 H Chloride 126 H Carbon Dioxide 21.9 Anion Gap 14 BUN 152 H Creatinine 6.08 H Estimated GFR 11 L POC Glucose 109 Random Glucose 202 H D Lactic Acid 1.9 Calcium 6.9 L* Prot Corrected Calcium 7.9 L Total Bilirubin 0.7 AST 439 H ALT 139 H Alkaline Phosphatase 62 Ammonia Total Creatine Kinase CK-MB (CK-2) CK-MB (CK-2) % Troponin I Total Protein 5.2 L Albumin 2.1 L Beta-Hydroxybutyric Acd TSH Urine Color Urine Clarity Urine pH Ur Specific [place] Urine Protein Urine Glucose (UA) Urine Ketones Urine Occult Blood Urine Nitrate Urine Bilirubin Urine Urobilinogen Ur Leukocyte Esterase Urine RBC Urine WBC Amorphous Sediment Urine Mucus Micro UA Comment Urine Culture Comments Nasal Screen MRSA (PCR) Urine Opiates Screen Ur Barbiturates Screen Ur Amphetamines Screen U Benzodiazepines Scrn Urine Cocaine Screen U Cannabinoids Screen Serum Alcohol 05/25/18 08:40 WBC 19.0 H RBC 4.90 Hgb 15.1 D Hct 46.0 MCV 93.9 D MCH 30.9 MCHC 32.9 RDW 13.6 D Plt Count 83 L D MPV 10.7 Prelim Diff (Auto) Slide review pending Neut % (Auto) 84.8 H Lymph % (Auto) 7.7 L [place] % (Auto) 6.9 Eos % (Auto) 0.1 Baso % (Auto) 0.5 Neut # (Auto) 16.1 H Lymph # (Auto) 1.5 [place] # (Auto) 1.3 H Eos # (Auto) 0.0 Baso # (Auto) 0.1 WBC Differential Manual diff final Seg Neuts % (Manual) 68 Band Neuts % (Manual) 18 H Lymphocytes % (Manual) 9 Monocytes % (Manual) 5 Abs Neuts (Manual) 16.3 H Differential Comment . Platelet Estimate Low L Platelet Morphology Normal PT INR APTT Puncture Site Patient Temperature O2 Saturation ABG pH ABG pCO2 ABG pO2 ABG HCO3 ABG O2 Content ABG Base Excess ABG Methemoglobin Davon Test Hemoglobin Carboxyhemoglobin O2 Delivery Device Vent Setting Inspired O2 Critical Value Sodium Potassium Chloride Carbon Dioxide Anion Gap BUN Creatinine Estimated GFR POC Glucose Random Glucose Lactic Acid Calcium Prot Corrected Calcium Total Bilirubin AST ALT Alkaline Phosphatase Ammonia Total Creatine Kinase CK-MB (CK-2) CK-MB (CK-2) % Troponin I Total Protein Albumin Beta-Hydroxybutyric Acd TSH Urine Color Urine Clarity Urine pH Ur Specific [place] Urine Protein Urine Glucose (UA) Urine Ketones Urine Occult Blood Urine Nitrate Urine Bilirubin Urine Urobilinogen Ur Leukocyte Esterase Urine RBC Urine WBC Amorphous Sediment Urine Mucus Micro UA Comment Urine Culture Comments Nasal Screen MRSA (PCR) Urine Opiates Screen Ur Barbiturates Screen Ur Amphetamines Screen U Benzodiazepines Scrn Urine Cocaine Screen U Cannabinoids Screen Serum Alcohol Result Diagrams: 05/25/18 08:40 05/25/18 19:33 Microbiology: Microbiology 05/24/18 18:28 Gram Stain - Final Sputum - Endotracheal Imaging: Chest X-Ray 05/24/18 13:08 CONCLUSION: Status post placement of an endotracheal tube positioned approximately 2 cm above the thoracic aortic arch. No evidence of pneumothorax. Head CT 05/24/18 13:08 CONCLUSION: Stable brain appearance with no definite acute findings. Abdomen/Pelvis CT 05/24/18 16:17 CONCLUSION: 1. Gallstones. 2. No other definite acute CT findings in the abdomen or pelvis. Procedures: * Intubated, central line placed. Patient/Family Conference Present at Family Conference: Spoke with sister and brother via phone. Mother is 89 very hard of hearing, lives in a nursing facility, daughter will go talk to her in the morning to explain the situation. All family agrees to DNR. Considering transition to comfort with withdrawal of life support. Daughter Sabina handles patient and mother affairs. Family Conference Time: 60 (30 minutes via phone each sibling. ) Family Conference Location: Telephone Issues Discussed: * Palliative care role, purpose, approach * Additional medical, psychosocial, and spiritual history * Patients general health, functional status, and cognitive changes in the months leading up to the current hospitalization * Patient/family understanding of the current medical problems * Patient/family understanding of prognosis * Patients goals of care as best understood from advance directives and/or conversations and/or values * Current medical treatment options and benefits/burdens of those options * Likely scenarios comparing ongoing aggressive care with a transition to comfort measures only * Questions answered to the best of my ability * Palliative care contact information provided Spoke with sister, Sabina and later to brother, Saman via phone to provide medical update. Sabina will call me from her mother's facility on 05/26 to allow her a chance to ask questions. Mother is elderly, in poor health and very [place], lives in facility therefore unable to be readily available to serve as HCP. Assessment and Plan - Disease Oriented Problem List (1) Acute respiratory failure (2) Lactic acidosis (3) Leukocytosis (4) Septic shock (5) Coma, hyperosmolar nonketotic (6) Renal failure (7) Acute hyperkalemia (8) Acute hypernatremia (9) GI bleed - Symptom Scale (1) Dyspnea 0-10 Scale: Unable to quantify (2) Encephalopathy 0-10 Scale: Unable to quantify Pertinent Non-Medical Issues: Psychosocial: Single. Previously 4 times, no children. Lives alone. He is a [place] [place]), was in [place]. Retired. Mother, 1 brother and 1 sister alive. Father . Spiritual: Taoism garcia. 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 Legal: Patient is not capacitated to make health care decisions, will not regain capacity. Single, No children. Mother is 89. Has 1 brother and 1 sister. According to [place] statutes, healthcare proxy decision making would fall to the patient's mother however mother and brother have opted out of decision- making. Therefore healthcare proxy decision making falls to the patient's sister, Sabina. Ethical issues impacting care: No known concerns at this time. Important Contacts: * Sabina, sister/ HCP: [phone] or [phone] --Family spokesperson for decision making * Saman Hughes, brother: [phone] live in [place], [place] * Donna Hughes, mother: [phone] - Prognosis: Mr. Leblanc is a frail 72 year old male with recent trajectory of decline, found down in his home after potentially 24 hours now with multisystem organ failure. Overall prognosis is poor for meaningful recovery. Code Status: Full Code Plan: * Patient is not capacitated to make health care decisions, will not regain capacity. Single, No children. Mother is 89. Has 1 brother and 1 sister. According to [place] statutes, healthcare proxy decision making would fall to the patient's mother however mother and brother have opted out of decision- making. Therefore healthcare proxy decision making falls to the patient's sister, Sabina. * NO CODE * Family has elected NO CODE as per family understanding of patient wishes. They do not think he would want dialysis if only used to artificially serve to prolong the dying process. They may consider transition to comfort with withdrawal of life support in the coming day(s) if no improvement. Exhibits B & C placed n chart, signed by Dr. Zepeda in case family elects transition to comfort. Family verbalizes patient has been declining, they are not surprised to hear how ill he is, they are certain he would not want to live a life of dependence. * SYMPTOMS: dyspnea: on mech vent. Encephalopathy: multi factorial. No new medication recommendations at this time. * Palliative care number provided. * Palliative care will continue to follow to assist with symptom management and further clarification of medical treatment goals. Appreciation Thank you for the opportunity to participate in the care of Lizandro Leblanc. Attestation Attestation: To help prompt me to consider important information that might be impacting today's encounter and assessment, information from prior notes written by myself or my colleagues may have been "brought forward" into today's note. My signature on this note, however, is an attestation that I personally performed the exam, history, and/or decision-making noted today, and, unless otherwise indicated, the interactions with patient, family, and staff as well as the review of records all occurred today. I also attest that the listed assessment and stated plan reflect my best clinical judgment today based on the combination of historical information, prior notes, and today's exam/ interactions. When time spent is documented, it refers only to time spent today by the signer, or if indicated, combined time spent today by collaborating physician/nurse practitioner.
--- NOTE | 2018-05-25 13:25 | P.CONGI ---
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 1.0 Troponin I 0.02 Total Protein 6.3 L Albumin 2.6 L Beta-Hydroxybutyric Acd TSH Urine Color Yellow Urine Clarity Hazy H Urine pH 5.0 Ur Specific Lisman 1.022 Urine Protein Negative Urine Glucose (UA) 500 or greater Urine Ketones Negative Urine Occult Blood Negative Urine Nitrate Negative Urine Bilirubin Negative Urine Urobilinogen Less than 2 Ur Leukocyte Esterase Negative Urine RBC Less than 1 Urine WBC 1 Amorphous Sediment Urine Mucus Few H Micro UA Comment Cath-culture not ind Urine Culture Comments Cath-cult not ind Nasal Screen MRSA (PCR) Urine Opiates Screen Ur Barbiturates Screen Ur Amphetamines Screen U Benzodiazepines Scrn Urine Cocaine Screen U Cannabinoids Screen Serum Alcohol 05/24/18 05/24/18 05/24/18 13:10 13:15 13:25 WBC RBC Hgb Hct MCV MCH MCHC RDW Plt Count MPV Prelim Diff (Auto) Neut % (Auto) Lymph % (Auto) Tucker % (Auto) Eos % (Auto) Baso % (Auto) Neut # (Auto) Lymph # (Auto) Tucker # (Auto) Eos # (Auto) Baso # (Auto) WBC Differential Seg Neuts % (Manual) Band Neuts % (Manual) Lymphocytes % (Manual) Monocytes % (Manual) Abs Neuts (Manual) Differential Comment Platelet Estimate Platelet Morphology PT INR APTT Puncture Site Left brachial Patient Temperature 98.6 O2 Saturation 98 ABG pH 7.12 L* ABG pCO2 56 H* ABG pO2 507 H ABG HCO3 17 L ABG O2 Content 25.5 H ABG Base Excess -10.6 L ABG Methemoglobin 0.5 Davon Test Present Hemoglobin 17.5 H Carboxyhemoglobin 0.9 O2 Delivery Device Ventilator Vent Setting Prvc/ac Inspired O2 100 Critical Value Yes Sodium Potassium Chloride Carbon Dioxide Anion Gap BUN Creatinine Estimated GFR POC Glucose Random Glucose Lactic Acid Calcium Prot Corrected Calcium Total Bilirubin AST ALT Alkaline Phosphatase Ammonia 47 H Total Creatine Kinase CK-MB (CK-2) CK-MB (CK-2) % Troponin I Total Protein Albumin Beta-Hydroxybutyric Acd TSH Urine Color Urine Clarity Urine pH Ur Specific [place] Urine Protein Urine Glucose (UA) Urine Ketones Urine Occult Blood Urine Nitrate Urine Bilirubin Urine Urobilinogen Ur Leukocyte Esterase Urine RBC Urine WBC Amorphous Sediment Urine Mucus Micro UA Comment Urine Culture Comments Nasal Screen MRSA (PCR) Urine Opiates Screen Neg Ur Barbiturates Screen Neg Ur Amphetamines Screen Neg U Benzodiazepines Scrn Neg Urine Cocaine Screen Neg U Cannabinoids Screen Neg Serum Alcohol 05/24/18 05/24/18 05/24/18 16:00 16:50 17:50 WBC RBC Hgb Hct MCV MCH MCHC RDW Plt Count MPV Prelim Diff (Auto) Neut % (Auto) Lymph % (Auto) Tucker % (Auto) Eos % (Auto) Baso % (Auto) Neut # (Auto) Lymph # (Auto) Tucker # (Auto) Eos # (Auto) Baso # (Auto) WBC Differential Seg Neuts % (Manual) Band Neuts % (Manual) Lymphocytes % (Manual) Monocytes % (Manual) Abs Neuts (Manual) Differential Comment Platelet Estimate Platelet Morphology PT INR APTT Puncture Site Patient Temperature O2 Saturation ABG pH ABG pCO2 ABG pO2 ABG HCO3 ABG O2 Content ABG Base Excess ABG Methemoglobin Davon Test Hemoglobin Carboxyhemoglobin O2 Delivery Device Vent Setting Inspired O2 Critical Value Sodium 162 H* Potassium 4.4 D Chloride 125 H Carbon Dioxide 19.4 L Anion Gap 18 H BUN 165 H Creatinine 6.26 H Estimated GFR 11 L POC Glucose Random Glucose 779 H* D Lactic Acid 3.1 H 3.3 H Calcium 8.3 L Prot Corrected Calcium Total Bilirubin AST ALT Alkaline Phosphatase Ammonia Total Creatine Kinase CK-MB (CK-2) CK-MB (CK-2) % Troponin I Total Protein Albumin Beta-Hydroxybutyric Acd TSH Urine Color Urine Clarity Urine pH Ur Specific [place] Urine Protein Urine Glucose (UA) Urine Ketones Urine Occult Blood Urine Nitrate Urine Bilirubin Urine Urobilinogen Ur Leukocyte Esterase Urine RBC Urine WBC Amorphous Sediment Urine Mucus Micro UA Comment Urine Culture Comments Nasal Screen MRSA (PCR) Urine Opiates Screen Ur Barbiturates Screen Ur Amphetamines Screen U Benzodiazepines Scrn Urine Cocaine Screen U Cannabinoids Screen Serum Alcohol 05/24/18 05/24/18 05/24/18 17:50 17:50 17:50 WBC 18.7 H RBC 5.53 Hgb 17.3 H Hct 57.5 H MCV 103.9 H MCH 31.2 MCHC 30.1 L RDW 16.9 Plt Count 150 MPV 11.2 H Prelim Diff (Auto) Neut % (Auto) 91.9 H Lymph % (Auto) 5.7 L Tucker % (Auto) 2.3 Eos % (Auto) 0.0 Baso % (Auto) 0.1 Neut # (Auto) 17.1 H Lymph # (Auto) 1.1 Tucker # (Auto) 0.4 Eos # (Auto) 0.0 Baso # (Auto) 0.0 WBC Differential . Seg Neuts % (Manual) Band Neuts % (Manual) Lymphocytes % (Manual) Monocytes % (Manual) Abs Neuts (Manual) Differential Comment Auto diff final Platelet Estimate Platelet Morphology PT INR APTT Puncture Site Patient Temperature O2 Saturation ABG pH ABG pCO2 ABG pO2 ABG HCO3 ABG O2 Content ABG Base Excess ABG Methemoglobin Davon Test Hemoglobin Carboxyhemoglobin O2 Delivery Device Vent Setting Inspired O2 Critical Value Sodium 151 H D Potassium 6.2 H D Chloride 116 H D Carbon Dioxide 17.4 L Anion Gap 18 H BUN 182 H Creatinine 6.65 H Estimated GFR 10 L POC Glucose Random Glucose 1059 H* D Lactic Acid Calcium 7.3 L* D Prot Corrected Calcium 7.6 L Total Bilirubin AST ALT Alkaline Phosphatase Ammonia Total Creatine Kinase CK-MB (CK-2) CK-MB (CK-2) % Troponin I Total Protein 6.5 Albumin Beta-Hydroxybutyric Acd 0.54 H TSH Urine Color Urine Clarity Urine pH Ur Specific [place] Urine Protein Urine Glucose (UA) Urine Ketones Urine Occult Blood Urine Nitrate Urine Bilirubin Urine Urobilinogen Ur Leukocyte Esterase Urine RBC Urine WBC Amorphous Sediment Urine Mucus Micro UA Comment Urine Culture Comments Nasal Screen MRSA (PCR) Urine Opiates Screen Ur Barbiturates Screen Ur Amphetamines Screen U Benzodiazepines Scrn Urine Cocaine Screen U Cannabinoids Screen Serum Alcohol 05/24/18 05/24/18 05/24/18 17:50 18:21 18:29 WBC RBC Hgb Hct MCV MCH MCHC RDW Plt Count MPV Prelim Diff (Auto) Neut % (Auto) Lymph % (Auto) Tucker % (Auto) Eos % (Auto) Baso % (Auto) Neut # (Auto) Lymph # (Auto) Tucker # (Auto) Eos # (Auto) Baso # (Auto) WBC Differential Seg Neuts % (Manual) Band Neuts % (Manual) Lymphocytes % (Manual) Monocytes % (Manual) Abs Neuts (Manual) Differential Comment Platelet Estimate Platelet Morphology PT INR APTT Puncture Site Patient Temperature O2 Saturation ABG pH ABG pCO2 ABG pO2 ABG HCO3 ABG O2 Content ABG Base Excess ABG Methemoglobin Davon Test Hemoglobin Carboxyhemoglobin O2 Delivery Device Vent Setting Inspired O2 Critical Value Sodium Potassium Chloride Carbon Dioxide Anion Gap BUN Creatinine Estimated GFR POC Glucose Greater than 600 H* Random Glucose Lactic Acid Calcium Prot Corrected Calcium Total Bilirubin AST ALT Alkaline Phosphatase Ammonia Total Creatine Kinase CK-MB (CK-2) CK-MB (CK-2) % Troponin I Total Protein Albumin Beta-Hydroxybutyric Acd TSH Urine Color Yellow Urine Clarity Cloudy H Urine pH 5.0 Ur Specific Lisman 1.022 Urine Protein Negative Urine Glucose (UA) 500 or greater Urine Ketones Negative Urine Occult Blood Negative Urine Nitrate Negative Urine Bilirubin Negative Urine Urobilinogen Less than 2 Ur Leukocyte Esterase Negative Urine RBC 1 Urine WBC 2 Amorphous Sediment Few H Urine Mucus Few H Micro UA Comment Cath-culture not ind Urine Culture Comments Cath-cult not ind Nasal Screen MRSA (PCR) Not detected Urine Opiates Screen Ur Barbiturates Screen Ur Amphetamines Screen U Benzodiazepines Scrn Urine Cocaine Screen U Cannabinoids Screen Serum Alcohol 05/24/18 05/24/18 05/24/18 18:33 18:50 21:09 WBC RBC Hgb Hct MCV MCH MCHC RDW Plt Count MPV Prelim Diff (Auto) Neut % (Auto) Lymph % (Auto) Tucker % (Auto) Eos % (Auto) Baso % (Auto) Neut # (Auto) Lymph # (Auto) Tucker # (Auto) Eos # (Auto) Baso # (Auto) WBC Differential Seg Neuts % (Manual) Band Neuts % (Manual) Lymphocytes % (Manual) Monocytes % (Manual) Abs Neuts (Manual) Differential Comment Platelet Estimate Platelet Morphology PT INR APTT Puncture Site Left radial Patient Temperature 98.6 O2 Saturation 96 ABG pH 7.22 L* ABG pCO2 44 H ABG pO2 124 H ABG HCO3 17 L ABG O2 Content 23.0 H ABG Base Excess -9.2 L ABG Methemoglobin 1.2 Davon Test Present Hemoglobin 17.0 H Carboxyhemoglobin 0.8 O2 Delivery Device Ventilator Vent Setting Prvc/ac Inspired O2 40 Critical Value Yes Sodium Potassium Chloride Carbon Dioxide Anion Gap BUN Creatinine Estimated GFR POC Glucose 537 H* Random Glucose Lactic Acid 5.4 H* Calcium Prot Corrected Calcium Total Bilirubin AST ALT Alkaline Phosphatase Ammonia Total Creatine Kinase CK-MB (CK-2) CK-MB (CK-2) % Troponin I Total Protein Albumin Beta-Hydroxybutyric Acd TSH Urine Color Urine Clarity Urine pH Ur Specific [place] Urine Protein Urine Glucose (UA) Urine Ketones Urine Occult Blood Urine Nitrate Urine Bilirubin Urine Urobilinogen Ur Leukocyte Esterase Urine RBC Urine WBC Amorphous Sediment Urine Mucus Micro UA Comment Urine Culture Comments Nasal Screen MRSA (PCR) Urine Opiates Screen Ur Barbiturates Screen Ur Amphetamines Screen U Benzodiazepines Scrn Urine Cocaine Screen U Cannabinoids Screen Serum Alcohol 05/24/18 05/24/18 05/24/18 22:03 23:03 23:59 WBC RBC Hgb Hct MCV MCH MCHC RDW Plt Count MPV Prelim Diff (Auto) Neut % (Auto) Lymph % (Auto) Tucker % (Auto) Eos % (Auto) Baso % (Auto) Neut # (Auto) Lymph # (Auto) Tucker # (Auto) Eos # (Auto) Baso # (Auto) WBC Differential Seg Neuts % (Manual) Band Neuts % (Manual) Lymphocytes % (Manual) Monocytes % (Manual) Abs Neuts (Manual) Differential Comment Platelet Estimate Platelet Morphology PT INR APTT Puncture Site Patient Temperature O2 Saturation ABG pH ABG pCO2 ABG pO2 ABG HCO3 ABG O2 Content ABG Base Excess ABG Methemoglobin Davon Test Hemoglobin Carboxyhemoglobin O2 Delivery Device Vent Setting Inspired O2 Critical Value Sodium Potassium Chloride Carbon Dioxide Anion Gap BUN Creatinine Estimated GFR POC Glucose 483 H* 411 H 368 H Random Glucose Lactic Acid Calcium Prot Corrected Calcium Total Bilirubin AST ALT Alkaline Phosphatase Ammonia Total Creatine Kinase CK-MB (CK-2) CK-MB (CK-2) % Troponin I Total Protein Albumin Beta-Hydroxybutyric Acd TSH Urine Color Urine Clarity Urine pH Ur Specific [place] Urine Protein Urine Glucose (UA) Urine Ketones Urine Occult Blood Urine Nitrate Urine Bilirubin Urine Urobilinogen Ur Leukocyte Esterase Urine RBC Urine WBC Amorphous Sediment Urine Mucus Micro UA Comment Urine Culture Comments Nasal Screen MRSA (PCR) Urine Opiates Screen Ur Barbiturates Screen Ur Amphetamines Screen U Benzodiazepines Scrn Urine Cocaine Screen U Cannabinoids Screen Serum Alcohol 05/25/18 05/25/18 05/25/18 01:03 01:20 01:45 WBC RBC Hgb Hct MCV MCH MCHC RDW Plt Count MPV Prelim Diff (Auto) Neut % (Auto) Lymph % (Auto) Tucker % (Auto) Eos % (Auto) Baso % (Auto) Neut # (Auto) Lymph # (Auto) Tucker # (Auto) Eos # (Auto) Baso # (Auto) WBC Differential Seg Neuts % (Manual) Band Neuts % (Manual) Lymphocytes % (Manual) Monocytes % (Manual) Abs Neuts (Manual) Differential Comment Platelet Estimate Platelet Morphology PT INR APTT Puncture Site Patient Temperature O2 Saturation ABG pH ABG pCO2 ABG pO2 ABG HCO3 ABG O2 Content ABG Base Excess ABG Methemoglobin Davon Test Hemoglobin Carboxyhemoglobin O2 Delivery Device Vent Setting Inspired O2 Critical Value Sodium Cancelled Potassium Cancelled Chloride Cancelled Carbon Dioxide Cancelled Anion Gap Cancelled BUN Cancelled Creatinine Cancelled Estimated GFR Cancelled POC Glucose 340 H 322 H Random Glucose Cancelled Lactic Acid Calcium Cancelled Prot Corrected Calcium Total Bilirubin AST ALT Alkaline Phosphatase Ammonia Total Creatine Kinase CK-MB (CK-2) CK-MB (CK-2) % Troponin I Total Protein Albumin Beta-Hydroxybutyric Acd TSH Urine Color Urine Clarity Urine pH Ur Specific [place] Urine Protein Urine Glucose (UA) Urine Ketones Urine Occult Blood Urine Nitrate Urine Bilirubin Urine Urobilinogen Ur Leukocyte Esterase Urine RBC Urine WBC Amorphous Sediment Urine Mucus Micro UA Comment Urine Culture Comments Nasal Screen MRSA (PCR) Urine Opiates Screen Ur Barbiturates Screen Ur Amphetamines Screen U Benzodiazepines Scrn Urine Cocaine Screen U Cannabinoids Screen Serum Alcohol 05/25/18 05/25/18 05/25/18 02:45 02:55 04:31 WBC RBC Hgb Hct MCV MCH MCHC RDW Plt Count MPV Prelim Diff (Auto) Neut % (Auto) Lymph % (Auto) Tucker % (Auto) Eos % (Auto) Baso % (Auto) Neut # (Auto) Lymph # (Auto) Tucker # (Auto) Eos # (Auto) Baso # (Auto) WBC Differential Seg Neuts % (Manual) Band Neuts % (Manual) Lymphocytes % (Manual) Monocytes % (Manual) Abs Neuts (Manual) Differential Comment Platelet Estimate Platelet Morphology PT INR APTT Puncture Site Patient Temperature O2 Saturation ABG pH ABG pCO2 ABG pO2 ABG HCO3 ABG O2 Content ABG Base Excess ABG Methemoglobin Davon Test Hemoglobin Carboxyhemoglobin O2 Delivery Device Vent Setting Inspired O2 Critical Value Sodium 163 H* D Potassium 5.2 H D Chloride 127 H D Carbon Dioxide 18.3 L Anion Gap 18 H BUN 153 H Creatinine 6.08 H Estimated GFR 11 L POC Glucose 214 H 142 H Random Glucose 308 H D Lactic Acid Calcium 6.7 L* Prot Corrected Calcium 7.7 L Total Bilirubin AST ALT Alkaline Phosphatase Ammonia Total Creatine Kinase 16425 H CK-MB (CK-2) 71.5 H CK-MB (CK-2) % 0.6 Troponin I Total Protein 5.2 L D Albumin Beta-Hydroxybutyric Acd TSH Urine Color Urine Clarity Urine pH Ur Specific [place]isman Urine Protein Urine Glucose (UA) Urine Ketones Urine Occult Blood Urine Nitrate Urine Bilirubin Urine Urobilinogen Ur Leukocyte Esterase Urine RBC Urine WBC Amorphous Sediment Urine Mucus Micro UA Comment Urine Culture Comments Nasal Screen MRSA (PCR) Urine Opiates Screen Ur Barbiturates Screen Ur Amphetamines Screen U Benzodiazepines Scrn Urine Cocaine Screen U Cannabinoids Screen Serum Alcohol 05/25/18 05/25/18 05/25/18 05:04 06:00 06:52 WBC RBC Hgb Hct MCV MCH MCHC RDW Plt Count MPV Prelim Diff (Auto) Neut % (Auto) Lymph % (Auto) Tucker % (Auto) Eos % (Auto) Baso % (Auto) Neut # (Auto) Lymph # (Auto) Tucker # (Auto) Eos # (Auto) Baso # (Auto) WBC Differential Seg Neuts % (Manual) Band Neuts % (Manual) Lymphocytes % (Manual) Monocytes % (Manual) Abs Neuts (Manual) Differential Comment Platelet Estimate Platelet Morphology PT INR APTT Puncture Site Patient Temperature O2 Saturation ABG pH ABG pCO2 ABG pO2 ABG HCO3 ABG O2 Content ABG Base Excess ABG Methemoglobin Davon Test Hemoglobin Carboxyhemoglobin O2 Delivery Device Vent Setting Inspired O2 Critical Value Sodium Potassium Chloride Carbon Dioxide Anion Gap BUN Creatinine Estimated GFR POC Glucose 127 H 121 H 133 H Random Glucose Lactic Acid Calcium Prot Corrected Calcium Total Bilirubin AST ALT Alkaline Phosphatase Ammonia Total Creatine Kinase CK-MB (CK-2) CK-MB (CK-2) % Troponin I Total Protein Albumin Beta-Hydroxybutyric Acd TSH Urine Color Urine Clarity Urine pH Ur Specific [place] Urine Protein Urine Glucose (UA) Urine Ketones Urine Occult Blood Urine Nitrate Urine Bilirubin Urine Urobilinogen Ur Leukocyte Esterase Urine RBC Urine WBC Amorphous Sediment Urine Mucus Micro UA Comment Urine Culture Comments Nasal Screen MRSA (PCR) Urine Opiates Screen Ur Barbiturates Screen Ur Amphetamines Screen U Benzodiazepines Scrn Urine Cocaine Screen U Cannabinoids Screen Serum Alcohol 05/25/18 05/25/18 05/25/18 07:53 07:53 08:19 WBC RBC Hgb Hct MCV MCH MCHC RDW Plt Count MPV Prelim Diff (Auto) Neut % (Auto) Lymph % (Auto) Tucker % (Auto) Eos % (Auto) Baso % (Auto) Neut # (Auto) Lymph # (Auto) Tucker # (Auto) Eos # (Auto) Baso # (Auto) WBC Differential Seg Neuts % (Manual) Band Neuts % (Manual) Lymphocytes % (Manual) Monocytes % (Manual) Abs Neuts (Manual) Differential Comment Platelet Estimate Platelet Morphology PT INR APTT Puncture Site Patient Temperature O2 Saturation ABG pH ABG pCO2 ABG pO2 ABG HCO3 ABG O2 Content ABG Base Excess ABG Methemoglobin Davon Test Hemoglobin Carboxyhemoglobin O2 Delivery Device Vent Setting Inspired O2 Critical Value Sodium 162 H* Potassium 5.7 H Chloride 126 H Carbon Dioxide 21.9 Anion Gap 14 BUN 152 H Creatinine 6.08 H Estimated GFR 11 L POC Glucose 109 Random Glucose 202 H D Lactic Acid 1.9 Calcium 6.9 L* Prot Corrected Calcium 7.9 L Total Bilirubin 0.7 AST 439 H ALT 139 H Alkaline Phosphatase 62 Ammonia Total Creatine Kinase CK-MB (CK-2) CK-MB (CK-2) % Troponin I Total Protein 5.2 L Albumin 2.1 L Beta-Hydroxybutyric Acd TSH Urine Color Urine Clarity Urine pH Ur Specific [place] Urine Protein Urine Glucose (UA) Urine Ketones Urine Occult Blood Urine Nitrate Urine Bilirubin Urine Urobilinogen Ur Leukocyte Esterase Urine RBC Urine WBC Amorphous Sediment Urine Mucus Micro UA Comment Urine Culture Comments Nasal Screen MRSA (PCR) Urine Opiates Screen Ur Barbiturates Screen Ur Amphetamines Screen U Benzodiazepines Scrn Urine Cocaine Screen U Cannabinoids Screen Serum Alcohol 05/25/18 05/25/18 08:40 10:42 WBC 19.0 H RBC 4.90 Hgb 15.1 D Hct 46.0 MCV 93.9 D MCH 30.9 MCHC 32.9 RDW 13.6 D Plt Count 83 L D MPV 10.7 Prelim Diff (Auto) Slide review pending Neut % (Auto) 84.8 H Lymph % (Auto) 7.7 L Tucker % (Auto) 6.9 Eos % (Auto) 0.1 Baso % (Auto) 0.5 Neut # (Auto) 16.1 H Lymph # (Auto) 1.5 Tucker # (Auto) 1.3 H Eos # (Auto) 0.0 Baso # (Auto) 0.1 WBC Differential Manual diff final Seg Neuts % (Manual) 68 Band Neuts % (Manual) 18 H Lymphocytes % (Manual) 9 Monocytes % (Manual) 5 Abs Neuts (Manual) 16.3 H Differential Comment . Platelet Estimate Low L Platelet Morphology Normal PT INR APTT Puncture Site Patient Temperature O2 Saturation ABG pH ABG pCO2 ABG pO2 ABG HCO3 ABG O2 Content ABG Base Excess ABG Methemoglobin Davon Test Hemoglobin Carboxyhemoglobin O2 Delivery Device Vent Setting Inspired O2 Critical Value Sodium Potassium Chloride Carbon Dioxide Anion Gap BUN Creatinine Estimated GFR POC Glucose 118 H Random Glucose Lactic Acid Calcium Prot Corrected Calcium Total Bilirubin AST ALT Alkaline Phosphatase Ammonia Total Creatine Kinase CK-MB (CK-2) CK-MB (CK-2) % Troponin I Total Protein Albumin Beta-Hydroxybutyric Acd TSH Urine Color Urine Clarity Urine pH Ur Specific [place] Urine Protein Urine Glucose (UA) Urine Ketones Urine Occult Blood Urine Nitrate Urine Bilirubin Urine Urobilinogen Ur Leukocyte Esterase Urine RBC Urine WBC Amorphous Sediment Urine Mucus Micro UA Comment Urine Culture Comments Nasal Screen MRSA (PCR) Urine Opiates Screen Ur Barbiturates Screen Ur Amphetamines Screen U Benzodiazepines Scrn Urine Cocaine Screen U Cannabinoids Screen Serum Alcohol - Imaging Impressions Chest X-Ray 05/24/18 13:08 CONCLUSION: Status post placement of an endotracheal tube positioned approximately 2 cm above the thoracic aortic arch. No evidence of pneumothorax. Head CT 05/24/18 13:08 CONCLUSION: Stable brain appearance with no definite acute findings. Abdomen/Pelvis CT 05/24/18 16:17 CONCLUSION: 1. Gallstones. 2. No other definite acute CT findings in the abdomen or pelvis. <Kelly Chacon - Last Filed: 05/25/18 13:11> - Labs CBC & Chem 7: 05/25/18 08:40 05/25/18 07:53 Labs: Laboratory Results - last 24 hr 05/24/18 05/24/18 05/24/18 13:00 13:00 13:00 WBC RBC Hgb Hct MCV MCH MCHC RDW Plt Count MPV Prelim Diff (Auto) Neut % (Auto) Lymph % (Auto) Tucker % (Auto) Eos % (Auto) Baso % (Auto) Neut # (Auto) Lymph # (Auto) Tucker # (Auto) Eos # (Auto) Baso # (Auto) WBC Differential Seg Neuts % (Manual) Band Neuts % (Manual) Lymphocytes % (Manual) Monocytes % (Manual) Abs Neuts (Manual) Differential Comment Platelet Estimate Platelet Morphology Puncture Site Patient Temperature O2 Saturation ABG pH ABG pCO2 ABG pO2 ABG HCO3 ABG O2 Content ABG Base Excess ABG Methemoglobin Davon Test Hemoglobin Carboxyhemoglobin O2 Delivery Device Vent Setting Inspired O2 Critical Value Sodium 156 H* Potassium 6.7 H* Chloride 119 H Carbon Dioxide 16.2 L Anion Gap 21 H BUN 170 H Creatinine 6.79 H Estimated GFR 10 L POC Glucose Random Glucose 1010 H* Lactic Acid 4.9 H* Calcium 7.7 L Prot Corrected Calcium Total Bilirubin 0.5 AST 79 H ALT 36 Alkaline Phosphatase 88 Total Creatine Kinase 2630 H CK-MB (CK-2) 26.7 H CK-MB (CK-2) % 1.0 Troponin I 0.02 Total Protein 6.3 L Albumin 2.6 L Beta-Hydroxybutyric Acd TSH 1.290 Urine Color Urine Clarity Urine pH Ur Specific [place]isman Urine Protein Urine Glucose (UA) Urine Ketones Urine Occult Blood Urine Nitrate Urine Bilirubin Urine Urobilinogen Ur Leukocyte Esterase Urine RBC Urine WBC Amorphous Sediment Urine Mucus Micro UA Comment Urine Culture Comments Nasal Screen MRSA (PCR) Serum Alcohol Less than 3 05/24/18 05/24/18 05/24/18 16:00 16:50 17:50 WBC RBC Hgb Hct MCV MCH MCHC RDW Plt Count MPV Prelim Diff (Auto) Neut % (Auto) Lymph % (Auto) Tucker % (Auto) Eos % (Auto) Baso % (Auto) Neut # (Auto) Lymph # (Auto) Tucker # (Auto) Eos # (Auto) Baso # (Auto) WBC Differential Seg Neuts % (Manual) Band Neuts % (Manual) Lymphocytes % (Manual) Monocytes % (Manual) Abs Neuts (Manual) Differential Comment Platelet Estimate Platelet Morphology Puncture Site Patient Temperature O2 Saturation ABG pH ABG pCO2 ABG pO2 ABG HCO3 ABG O2 Content ABG Base Excess ABG Methemoglobin Davon Test Hemoglobin Carboxyhemoglobin O2 Delivery Device Vent Setting Inspired O2 Critical Value Sodium 162 H* Potassium 4.4 D Chloride 125 H Carbon Dioxide 19.4 L Anion Gap 18 H BUN 165 H Creatinine 6.26 H Estimated GFR 11 L POC Glucose Random Glucose 779 H* D Lactic Acid 3.1 H 3.3 H Calcium 8.3 L Prot Corrected Calcium Total Bilirubin AST ALT Alkaline Phosphatase Total Creatine Kinase CK-MB (CK-2) CK-MB (CK-2) % Troponin I Total Protein Albumin Beta-Hydroxybutyric Acd TSH Urine Color Urine Clarity Urine pH Ur Specific [place] Urine Protein Urine Glucose (UA) Urine Ketones Urine Occult Blood Urine Nitrate Urine Bilirubin Urine Urobilinogen Ur Leukocyte Esterase Urine RBC Urine WBC Amorphous Sediment Urine Mucus Micro UA Comment Urine Culture Comments Nasal Screen MRSA (PCR) Serum Alcohol 05/24/18 05/24/18 05/24/18 17:50 17:50 17:50 WBC 18.7 H RBC 5.53 Hgb 17.3 H Hct 57.5 H MCV 103.9 H MCH 31.2 MCHC 30.1 L RDW 16.9 Plt Count 150 MPV 11.2 H Prelim Diff (Auto) Neut % (Auto) 91.9 H Lymph % (Auto) 5.7 L Tucker % (Auto) 2.3 Eos % (Auto) 0.0 Baso % (Auto) 0.1 Neut # (Auto) 17.1 H Lymph # (Auto) 1.1 Tucker # (Auto) 0.4 Eos # (Auto) 0.0 Baso # (Auto) 0.0 WBC Differential . Seg Neuts % (Manual) Band Neuts % (Manual) Lymphocytes % (Manual) Monocytes % (Manual) Abs Neuts (Manual) Differential Comment Auto diff final Platelet Estimate Platelet Morphology Puncture Site Patient Temperature O2 Saturation ABG pH ABG pCO2 ABG pO2 ABG HCO3 ABG O2 Content ABG Base Excess ABG Methemoglobin Davon Test Hemoglobin Carboxyhemoglobin O2 Delivery Device Vent Setting Inspired O2 Critical Value Sodium 151 H D Potassium 6.2 H D Chloride 116 H D Carbon Dioxide 17.4 L Anion Gap 18 H BUN 182 H Creatinine 6.65 H Estimated GFR 10 L POC Glucose Random Glucose 1059 H* D Lactic Acid Calcium 7.3 L* D Prot Corrected Calcium 7.6 L Total Bilirubin AST ALT Alkaline Phosphatase Total Creatine Kinase CK-MB (CK-2) CK-MB (CK-2) % Troponin I Total Protein 6.5 Albumin Beta-Hydroxybutyric Acd 0.54 H TSH Urine Color Urine Clarity Urine pH Ur Specific [place] Urine Protein Urine Glucose (UA) Urine Ketones Urine Occult Blood Urine Nitrate Urine Bilirubin Urine Urobilinogen Ur Leukocyte Esterase Urine RBC Urine WBC Amorphous Sediment Urine Mucus Micro UA Comment Urine Culture Comments Nasal Screen MRSA (PCR) Serum Alcohol 05/24/18 05/24/18 05/24/18 17:50 18:21 18:29 WBC RBC Hgb Hct MCV MCH MCHC RDW Plt Count MPV Prelim Diff (Auto) Neut % (Auto) Lymph % (Auto) Tucker % (Auto) Eos % (Auto) Baso % (Auto) Neut # (Auto) Lymph # (Auto) Tucker # (Auto) Eos # (Auto) Baso # (Auto) WBC Differential Seg Neuts % (Manual) Band Neuts % (Manual) Lymphocytes % (Manual) Monocytes % (Manual) Abs Neuts (Manual) Differential Comment Platelet Estimate Platelet Morphology Puncture Site Patient Temperature O2 Saturation ABG pH ABG pCO2 ABG pO2 ABG HCO3 ABG O2 Content ABG Base Excess ABG Methemoglobin Davon Test Hemoglobin Carboxyhemoglobin O2 Delivery Device Vent Setting Inspired O2 Critical Value Sodium Potassium Chloride Carbon Dioxide Anion Gap BUN Creatinine Estimated GFR POC Glucose Greater than 600 H* Random Glucose Lactic Acid Calcium Prot Corrected Calcium Total Bilirubin AST ALT Alkaline Phosphatase Total Creatine Kinase CK-MB (CK-2) CK-MB (CK-2) % Troponin I Total Protein Albumin Beta-Hydroxybutyric Acd TSH Urine Color Yellow Urine Clarity Cloudy H Urine pH 5.0 Ur Specific Lisman 1.022 Urine Protein Negative Urine Glucose (UA) 500 or greater Urine Ketones Negative Urine Occult Blood Negative Urine Nitrate Negative Urine Bilirubin Negative Urine Urobilinogen Less than 2 Ur Leukocyte Esterase Negative Urine RBC 1 Urine WBC 2 Amorphous Sediment Few H Urine Mucus Few H Micro UA Comment Cath-culture not ind Urine Culture Comments Cath-cult not ind Nasal Screen MRSA (PCR) Not detected Serum Alcohol 05/24/18 05/24/18 05/24/18 18:33 18:50 21:09 WBC RBC Hgb Hct MCV MCH MCHC RDW Plt Count MPV Prelim Diff (Auto) Neut % (Auto) Lymph % (Auto) Tucker % (Auto) Eos % (Auto) Baso % (Auto) Neut # (Auto) Lymph # (Auto) Tucker # (Auto) Eos # (Auto) Baso # (Auto) WBC Differential Seg Neuts % (Manual) Band Neuts % (Manual) Lymphocytes % (Manual) Monocytes % (Manual) Abs Neuts (Manual) Differential Comment Platelet Estimate Platelet Morphology Puncture Site Left radial Patient Temperature 98.6 O2 Saturation 96 ABG pH 7.22 L* ABG pCO2 44 H ABG pO2 124 H ABG HCO3 17 L ABG O2 Content 23.0 H ABG Base Excess -9.2 L ABG Methemoglobin 1.2 Davon Test Present Hemoglobin 17.0 H Carboxyhemoglobin 0.8 O2 Delivery Device Ventilator Vent Setting Prvc/ac Inspired O2 40 Critical Value Yes Sodium Potassium Chloride Carbon Dioxide Anion Gap BUN Creatinine Estimated GFR POC Glucose 537 H* Random Glucose Lactic Acid 5.4 H* Calcium Prot Corrected Calcium Total Bilirubin AST ALT Alkaline Phosphatase Total Creatine Kinase CK-MB (CK-2) CK-MB (CK-2) % Troponin I Total Protein Albumin Beta-Hydroxybutyric Acd TSH Urine Color Urine Clarity Urine pH Ur Specific Lisman Urine Protein Urine Glucose (UA) Urine Ketones Urine Occult Blood Urine Nitrate Urine Bilirubin Urine Urobilinogen Ur Leukocyte Esterase Urine RBC Urine WBC Amorphous Sediment Urine Mucus Micro UA Comment Urine Culture Comments Nasal Screen MRSA (PCR) Serum Alcohol 05/24/18 05/24/18 05/24/18 22:03 23:03 23:59 WBC RBC Hgb Hct MCV MCH MCHC RDW Plt Count MPV Prelim Diff (Auto) Neut % (Auto) Lymph % (Auto) Tucker % (Auto) Eos % (Auto) Baso % (Auto) Neut # (Auto) Lymph # (Auto) Tucker # (Auto) Eos # (Auto) Baso # (Auto) WBC Differential Seg Neuts % (Manual) Band Neuts % (Manual) Lymphocytes % (Manual) Monocytes % (Manual) Abs Neuts (Manual) Differential Comment Platelet Estimate Platelet Morphology Puncture Site Patient Temperature O2 Saturation ABG pH ABG pCO2 ABG pO2 ABG HCO3 ABG O2 Content ABG Base Excess ABG Methemoglobin Davon Test Hemoglobin Carboxyhemoglobin O2 Delivery Device Vent Setting Inspired O2 Critical Value Sodium Potassium Chloride Carbon Dioxide Anion Gap BUN Creatinine Estimated GFR POC Glucose 483 H* 411 H 368 H Random Glucose Lactic Acid Calcium Prot Corrected Calcium Total Bilirubin AST ALT Alkaline Phosphatase Total Creatine Kinase CK-MB (CK-2) CK-MB (CK-2) % Troponin I Total Protein Albumin Beta-Hydroxybutyric Acd TSH Urine Color Urine Clarity Urine pH Ur Specific Lisman Urine Protein Urine Glucose (UA) Urine Ketones Urine Occult Blood Urine Nitrate Urine Bilirubin Urine Urobilinogen Ur Leukocyte Esterase Urine RBC Urine WBC Amorphous Sediment Urine Mucus Micro UA Comment Urine Culture Comments Nasal Screen MRSA (PCR) Serum Alcohol 05/25/18 05/25/18 05/25/18 01:03 01:20 01:45 WBC RBC Hgb Hct MCV MCH MCHC RDW Plt Count MPV Prelim Diff (Auto) Neut % (Auto) Lymph % (Auto) Tucker % (Auto) Eos % (Auto) Baso % (Auto) Neut # (Auto) Lymph # (Auto) Tucker # (Auto) Eos # (Auto) Baso # (Auto) WBC Differential Seg Neuts % (Manual) Band Neuts % (Manual) Lymphocytes % (Manual) Monocytes % (Manual) Abs Neuts (Manual) Differential Comment Platelet Estimate Platelet Morphology Puncture Site Patient Temperature O2 Saturation ABG pH ABG pCO2 ABG pO2 ABG HCO3 ABG O2 Content ABG Base Excess ABG Methemoglobin Davon Test Hemoglobin Carboxyhemoglobin O2 Delivery Device Vent Setting Inspired O2 Critical Value Sodium Cancelled Potassium Cancelled Chloride Cancelled Carbon Dioxide Cancelled Anion Gap Cancelled BUN Cancelled Creatinine Cancelled Estimated GFR Cancelled POC Glucose 340 H 322 H Random Glucose Cancelled Lactic Acid Calcium Cancelled Prot Corrected Calcium Total Bilirubin AST ALT Alkaline Phosphatase Total Creatine Kinase CK-MB (CK-2) CK-MB (CK-2) % Troponin I Total Protein Albumin Beta-Hydroxybutyric Acd TSH Urine Color Urine Clarity Urine pH Ur Specific Lisman Urine Protein Urine Glucose (UA) Urine Ketones Urine Occult Blood Urine Nitrate Urine Bilirubin Urine Urobilinogen Ur Leukocyte Esterase Urine RBC Urine WBC Amorphous Sediment Urine Mucus Micro UA Comment Urine Culture Comments Nasal Screen MRSA (PCR) Serum Alcohol 05/25/18 05/25/18 05/25/18 02:45 02:55 04:31 WBC RBC Hgb Hct MCV MCH MCHC RDW Plt Count MPV Prelim Diff (Auto) Neut % (Auto) Lymph % (Auto) Tucker % (Auto) Eos % (Auto) Baso % (Auto) Neut # (Auto) Lymph # (Auto) Tucker # (Auto) Eos # (Auto) Baso # (Auto) WBC Differential Seg Neuts % (Manual) Band Neuts % (Manual) Lymphocytes % (Manual) Monocytes % (Manual) Abs Neuts (Manual) Differential Comment Platelet Estimate Platelet Morphology Puncture Site Patient Temperature O2 Saturation ABG pH ABG pCO2 ABG pO2 ABG HCO3 ABG O2 Content ABG Base Excess ABG Methemoglobin Davon Test Hemoglobin Carboxyhemoglobin O2 Delivery Device Vent Setting Inspired O2 Critical Value Sodium 163 H* D Potassium 5.2 H D Chloride 127 H D Carbon Dioxide 18.3 L Anion Gap 18 H BUN 153 H Creatinine 6.08 H Estimated GFR 11 L POC Glucose 214 H 142 H Random Glucose 308 H D Lactic Acid Calcium 6.7 L* Prot Corrected Calcium 7.7 L Total Bilirubin AST ALT Alkaline Phosphatase Total Creatine Kinase 81939 H CK-MB (CK-2) 71.5 H CK-MB (CK-2) % 0.6 Troponin I Total Protein 5.2 L D Albumin Beta-Hydroxybutyric Acd TSH Urine Color Urine Clarity Urine pH Ur Specific Lisman Urine Protein Urine Glucose (UA) Urine Ketones Urine Occult Blood Urine Nitrate Urine Bilirubin Urine Urobilinogen Ur Leukocyte Esterase Urine RBC Urine WBC Amorphous Sediment Urine Mucus Micro UA Comment Urine Culture Comments Nasal Screen MRSA (PCR) Serum Alcohol 05/25/18 05/25/18 05/25/18 05:04 06:00 06:52 WBC RBC Hgb Hct MCV MCH MCHC RDW Plt Count MPV Prelim Diff (Auto) Neut % (Auto) Lymph % (Auto) Tucker % (Auto) Eos % (Auto) Baso % (Auto) Neut # (Auto) Lymph # (Auto) Tucker # (Auto) Eos # (Auto) Baso # (Auto) WBC Differential Seg Neuts % (Manual) Band Neuts % (Manual) Lymphocytes % (Manual) Monocytes % (Manual) Abs Neuts (Manual) Differential Comment Platelet Estimate Platelet Morphology Puncture Site Patient Temperature O2 Saturation ABG pH ABG pCO2 ABG pO2 ABG HCO3 ABG O2 Content ABG Base Excess ABG Methemoglobin Davon Test Hemoglobin Carboxyhemoglobin O2 Delivery Device Vent Setting Inspired O2 Critical Value Sodium Potassium Chloride Carbon Dioxide Anion Gap BUN Creatinine Estimated GFR POC Glucose 127 H 121 H 133 H Random Glucose Lactic Acid Calcium Prot Corrected Calcium Total Bilirubin AST ALT Alkaline Phosphatase Total Creatine Kinase CK-MB (CK-2) CK-MB (CK-2) % Troponin I Total Protein Albumin Beta-Hydroxybutyric Acd TSH Urine Color Urine Clarity Urine pH Ur Specific Lisman Urine Protein Urine Glucose (UA) Urine Ketones Urine Occult Blood Urine Nitrate Urine Bilirubin Urine Urobilinogen Ur Leukocyte Esterase Urine RBC Urine WBC Amorphous Sediment Urine Mucus Micro UA Comment Urine Culture Comments Nasal Screen MRSA (PCR) Serum Alcohol 05/25/18 05/25/18 05/25/18 07:53 07:53 08:19 WBC RBC Hgb Hct MCV MCH MCHC RDW Plt Count MPV Prelim Diff (Auto) Neut % (Auto) Lymph % (Auto) Tucker % (Auto) Eos % (Auto) Baso % (Auto) Neut # (Auto) Lymph # (Auto) Tucker # (Auto) Eos # (Auto) Baso # (Auto) WBC Differential Seg Neuts % (Manual) Band Neuts % (Manual) Lymphocytes % (Manual) Monocytes % (Manual) Abs Neuts (Manual) Differential Comment Platelet Estimate Platelet Morphology Puncture Site Patient Temperature O2 Saturation ABG pH ABG pCO2 ABG pO2 ABG HCO3 ABG O2 Content ABG Base Excess ABG Methemoglobin Davon Test Hemoglobin Carboxyhemoglobin O2 Delivery Device Vent Setting Inspired O2 Critical Value Sodium 162 H* Potassium 5.7 H Chloride 126 H Carbon Dioxide 21.9 Anion Gap 14 BUN 152 H Creatinine 6.08 H Estimated GFR 11 L POC Glucose 109 Random Glucose 202 H D Lactic Acid 1.9 Calcium 6.9 L* Prot Corrected Calcium 7.9 L Total Bilirubin 0.7 AST 439 H ALT 139 H Alkaline Phosphatase 62 Total Creatine Kinase CK-MB (CK-2) CK-MB (CK-2) % Troponin I Total Protein 5.2 L Albumin 2.1 L Beta-Hydroxybutyric Acd TSH Urine Color Urine Clarity Urine pH Ur Specific Lisman Urine Protein Urine Glucose (UA) Urine Ketones Urine Occult Blood Urine Nitrate Urine Bilirubin Urine Urobilinogen Ur Leukocyte Esterase Urine RBC Urine WBC Amorphous Sediment Urine Mucus Micro UA Comment Urine Culture Comments Nasal Screen MRSA (PCR) Serum Alcohol 05/25/18 05/25/18 05/25/18 08:40 10:42 13:25 WBC 19.0 H RBC 4.90 Hgb 15.1 D Hct 46.0 MCV 93.9 D MCH 30.9 MCHC 32.9 RDW 13.6 D Plt Count 83 L D MPV 10.7 Prelim Diff (Auto) Slide review pending Neut % (Auto) 84.8 H Lymph % (Auto) 7.7 L Tucker % (Auto) 6.9 Eos % (Auto) 0.1 Baso % (Auto) 0.5 Neut # (Auto) 16.1 H Lymph # (Auto) 1.5 Tucker # (Auto) 1.3 H Eos # (Auto) 0.0 Baso # (Auto) 0.1 WBC Differential Manual diff final Seg Neuts % (Manual) 68 Band Neuts % (Manual) 18 H Lymphocytes % (Manual) 9 Monocytes % (Manual) 5 Abs Neuts (Manual) 16.3 H Differential Comment . Platelet Estimate Low L Platelet Morphology Normal Puncture Site Patient Temperature O2 Saturation ABG pH ABG pCO2 ABG pO2 ABG HCO3 ABG O2 Content ABG Base Excess ABG Methemoglobin Davon Test Hemoglobin Carboxyhemoglobin O2 Delivery Device Vent Setting Inspired O2 Critical Value Sodium Potassium Chloride Carbon Dioxide Anion Gap BUN Creatinine Estimated GFR POC Glucose 118 H 256 H Random Glucose Lactic Acid Calcium Prot Corrected Calcium Total Bilirubin AST ALT Alkaline Phosphatase Total Creatine Kinase CK-MB (CK-2) CK-MB (CK-2) % Troponin I Total Protein Albumin Beta-Hydroxybutyric Acd TSH Urine Color Urine Clarity Urine pH Ur Specific Lisman Urine Protein Urine Glucose (UA) Urine Ketones Urine Occult Blood Urine Nitrate Urine Bilirubin Urine Urobilinogen Ur Leukocyte Esterase Urine RBC Urine WBC Amorphous Sediment Urine Mucus Micro UA Comment Urine Culture Comments Nasal Screen MRSA (PCR) Serum Alcohol - Imaging Impressions Head CT 05/24/18 13:08 CONCLUSION: Stable brain appearance with no definite acute findings. Abdomen/Pelvis CT 05/24/18 16:17 CONCLUSION: 1. Gallstones. 2. No other definite acute CT findings in the abdomen or pelvis. <Zaria Samson - Last Filed: 05/25/18 14:12> Assessment and Plan (1) Cholelithiasis Status: Acute Code(s): K80.20 - Calculus of gallbladder without cholecystitis without obstruction (2) Coffee ground emesis Status: Acute Code(s): K92.0 - Hematemesis (3) GI bleed Status: Acute Code(s): K92.2 - Gastrointestinal hemorrhage, unspecified - Plan Coffee-ground emesis initially when OG tube was placed and patient will monitor and need to rule out the possibility of upper GI bleeding GI bleeding upper probable .current hemoglobin 15.1 and no rectal bleeding noted or melena since admission. Gallstones seen on CT scan otherwise unremarkable Leukocytosis unspecified currently 19. 72-year-old male was found down at home and there is currently no family present. Nurse states there is a sister and a niece that have called about him and plan to visit at some point. Sister did tell nurse on the phone that patient has records from the [place] which she thinks does include some GI workup. [facility] Will maintain OG tube to low intermittent wall suction for now and monitor for coffee-ground emesis but at some point if patient continues to require intubation he will need a nutritional consult and supportive feeds. Currently patient is full code full aggressive care and palliative care consult has been noted. Plan Maintain OG tube to low intermittent suction for now and monitor for any further coffee-ground emesis Monitor labs with special attention to hemoglobin Old records [facility] the [facility] Patient will need EGD when medically stable. Current hemoglobin stable at 15.1. Continue Protonix drip for now Further recommendations to follow This patient was seen per myself and Dr. Samson, this note was written on her behalf <Kelly Chacon - Last Filed: 05/25/18 13:11> (1) Cholelithiasis Status: Acute Code(s): K80.20 - Calculus of gallbladder without cholecystitis without obstruction (2) Coffee ground emesis Status: Acute Code(s): K92.0 - Hematemesis (3) GI bleed Status: Acute Code(s): K92.2 - Gastrointestinal hemorrhage, unspecified <AdiliavondaZaria - Last Filed: 05/25/18 14:12> Attestation Collaborating MD Comments: The exam, history, and the medical decision-making described in the above note were completed with the assistance of the mid-level provider. I reviewed and agree with the findings presented. I attest that I had a [id number] encounter with the patient on the same day, and personally performed and documented my assessment and findings in the medical record. seen, examined agree with above supportive care <Zaria Samson - Last Filed: 05/25/18 14:12> <[place],Kelly M - Last Filed: 05/25/18 13:11> (3) GI bleed Qualifiers: GI bleed type/associated pathology: unspecified gastrointestinal hemorrhage type Qualified Code(s): K92.2 - Gastrointestinal hemorrhage, unspecified <Zaria Samson - Last Filed: 05/25/18 14:12> (3) GI bleed Qualifiers: GI bleed type/associated pathology: unspecified gastrointestinal hemorrhage type Qualified Code(s): K92.2 - Gastrointestinal hemorrhage, unspecified
--- NOTE | 2018-05-25 14:05 | P.DIET ---
Nutritional Evaluation Type of nutrition evaluation: initial Nutrition consult regarding: Tube Feeding Objective - Diagnosis Septic Shock - Objective % IBW: 95 Body Weight Used for Calculations: Actual Energy Needs - Lower Range (kCal/kg): 25 Energy Needs - Upper Range (kCal/kg): 30 Lower Limit kCal/kg (kCals): 1,600 Upper Limit kCal/kg (kCals): 1,920 Lower Limit Protein Factor (Grams per Kg): 1 Upper Limit Protein Factor (Grams per Kg): 1.2 Lower Protein Needs (Protein): 64 Upper Protein Needs (Protein): 77 Dietitian Reviewed in Medical Record: Current diet, Curent medications, Intake & Output, Labs, Medical history, Tube feeding Diet Order: TF only Objective Comments: Nutritional needs based on 64kg PMH: CKD, DM, CVA, HLD, HTN Meds include: Fentanyl Labs include: WBC 19.0, Na 162, K+ 5.7, Cr 6.08, Glu 202, Ca 6.9, elevated LFT's Assessment Assessment: Pt at nutritional risk r/t dx and need for a TF for nutrition support. Pt intubated and sedated on fentanyl. TF Nepro with goal rate 40 ml/hr will provide 1728 kcals, 78 gms protein and 698 mls free water. This is adequate to meet pt's nutritional needs at this time. Reviewed Customs Director note, pt may need dialysis. Reviewed palliative care note. Will monitor TF tolerance, clinical course. Recommendations: TF Nepro with goal rate 40 ml/hr Dietitian following Dietitian to Monitor: Lab values, Renal labs, Tube feeding tolerance, Weight change, Medical course
[2018-05-25 14:13] LABS: ABG Base Excess -5.9 mmol/L (-2-2); ABG PCO2 38 mmHg (38-42); ABG PO2 134 mmHG (61-120)
[2018-05-25 15:08] LABS: Calcium 6.2 mg/dL (8.5-10.1); Carbon Dioxide 22.1 meq/L (21.0-32.0)
--- NOTE | 2018-05-25 15:29 | US ---
EXAM DATE: 05/25/2018 3:16 PM EDT AGE/SEX: 72 years / Male INDICATIONS: Acute renal failure. CLINICAL DATA: This is the patient's initial encounter. Patient reports that signs and symptoms have been present for 1 day and indicates a pain score of 0/10. MEDICAL/SURGICAL HISTORY: . Hypercholesterolemia. Hypertension. Chronic obstructive pulmonary d isease. Glasses. Cardiac disorders. Anticoagulant therapy. Asthma. Diabetes. Alcohol use. Tobacco use . BPH. None. COMPARISON: No prior exams available for comparison. MEASUREMENTS: Right Kidney:__10.3 x 5.0 x 5.3 cm Left Kidney:__10.4 x 4.3 x 5.3 cm FINDINGS: Right Kidney: Normal echotexture and cortical thickness. No mass or hydronephrosis. Left Kidney: Normal echotexture and cortical thickness. No mass or hydronephrosis. Bladder: Mckeon catheter is present. Bladder decompressed. Other: None. CONCLUSION: Renal ultrasound within normal limits. Electronically signed by: Felix Downing MD 05/25/2018 3:28 PM EDT
[2018-05-25 15:30] LABS: Total Protein 5.3 g/dL (6.4-8.2)
--- NOTE | 2018-05-25 15:37 | P.PNNP ---
Subjective Interval history: This is a 72-year-old male brought to the emergency department after he was found unresponsive at home. Nephrology was called to see the patient because of elevated BUN and creatinine and a high potassium. The patient has previous creatinine of 1.27. This was in 01/2018. He had mild renal dysfunction at that time. Looking back at his old chart, it seems like the patient has history of enlarged prostate and he was admitted in January with recurrent fallsand possibility of urinary tract infection and CVA. The patient lives alone and he was not answering the phone, so EMS were called to have a well check at home. He was found unresponsive. Intubated on mechanical ventilation. Fio2 at 40 %. On vasopressin and IV with sodium bicarbonate. <Cheryle Jones - Last Filed: 05/25/18 15:24> Physical Exam Vital signs: Vital Signs 05/24/18 17:41 05/24/18 18:00 05/24/18 18:05 Temperature 99.0 F Pulse Rate 108 H 109 H Respiratory Rate 30 H 27 H Blood Pressure 88/62 L 103/69 Pulse Oximetry 98 100 05/24/18 18:10 05/24/18 18:15 05/24/18 18:20 Temperature Pulse Rate Respiratory Rate Blood Pressure 106/71 110/73 115/81 Pulse Oximetry 05/24/18 18:30 05/24/18 18:35 05/24/18 18:40 Temperature Pulse Rate Respiratory Rate Blood Pressure 96/69 L 100/70 91/63 L Pulse Oximetry 05/24/18 18:45 05/24/18 18:50 05/24/18 19:00 Temperature 98.8 F Pulse Rate 101 H Respiratory Rate 24 Blood Pressure 93/65 L 93/61 L 87/58 L Pulse Oximetry 97 05/24/18 19:35 05/24/18 19:36 05/24/18 20:00 Temperature Pulse Rate 119 H Respiratory Rate 24 24 24 Blood Pressure 75/54 L Pulse Oximetry 97 97 96 05/24/18 20:20 05/24/18 21:00 05/24/18 22:00 Temperature Pulse Rate 104 H 103 H Respiratory Rate 24 24 Blood Pressure 79/55 L 80/56 L Pulse Oximetry 98 97 97 05/24/18 22:08 05/24/18 22:15 05/24/18 22:23 Temperature Pulse Rate 105 H 117 H 134 H Respiratory Rate 9 L 24 Blood Pressure 79/55 L Pulse Oximetry 97 97 05/24/18 22:30 05/24/18 22:45 05/24/18 23:00 Temperature Pulse Rate 134 H 103 H 113 H Respiratory Rate 24 24 24 Blood Pressure 82/53 L 81/57 L 76/58 L Pulse Oximetry 97 98 97 05/24/18 23:15 05/24/18 23:30 05/24/18 23:45 Temperature Pulse Rate 105 H 104 H 111 H Respiratory Rate 24 24 24 Blood Pressure 77/58 L 73/56 L 72/51 L Pulse Oximetry 97 97 97 05/25/18 00:00 05/25/18 00:15 05/25/18 00:30 Temperature 99.3 F Pulse Rate 108 H 112 H 105 H Respiratory Rate 24 24 24 Blood Pressure 76/53 L 77/62 L 73/51 L Pulse Oximetry 95 96 96 05/25/18 00:45 05/25/18 01:00 05/25/18 01:02 Temperature Pulse Rate 104 H 105 H Respiratory Rate 24 24 24 Blood Pressure 74/50 L 86/54 L Pulse Oximetry 97 97 99 05/25/18 01:15 05/25/18 01:30 05/25/18 01:45 Temperature Pulse Rate 102 H 99 H 97 H Respiratory Rate 24 24 24 Blood Pressure 85/56 L 87/60 L 86/56 L Pulse Oximetry 97 98 98 05/25/18 02:00 05/25/18 02:15 05/25/18 02:30 Temperature Pulse Rate 95 H 96 H 96 H Respiratory Rate 24 24 24 Blood Pressure 93/62 L 102/62 101/65 Pulse Oximetry 98 99 98 05/25/18 02:45 05/25/18 03:00 05/25/18 03:06 Temperature Pulse Rate 97 H 96 H Respiratory Rate 24 24 24 Blood Pressure 97/69 L 105/68 Pulse Oximetry 99 99 99 05/25/18 03:15 05/25/18 03:30 05/25/18 03:45 Temperature Pulse Rate 96 H 96 H 95 H Respiratory Rate 24 24 24 Blood Pressure 112/73 106/70 108/70 Pulse Oximetry 99 99 99 05/25/18 04:00 05/25/18 04:15 05/25/18 04:30 Temperature 96.8 F L Pulse Rate 94 H 93 H 93 H Respiratory Rate 24 25 H 25 H Blood Pressure 117/77 109/78 107/70 Pulse Oximetry 100 100 100 05/25/18 04:45 05/25/18 05:00 05/25/18 05:15 Temperature Pulse Rate 93 H 93 H 94 H Respiratory Rate 25 H 25 H 25 H Blood Pressure 97/60 L 95/63 L 90/63 L Pulse Oximetry 99 99 99 05/25/18 05:30 05/25/18 05:45 05/25/18 06:00 Temperature Pulse Rate 93 H 92 H 92 H Respiratory Rate 26 H 26 H 25 H Blood Pressure 91/65 L 77/61 L 86/62 L Pulse Oximetry 99 99 99 05/25/18 06:15 05/25/18 06:30 05/25/18 06:45 Temperature Pulse Rate 92 H 90 94 H Respiratory Rate 25 H 24 24 Blood Pressure 83/59 L 86/61 L 107/75 Pulse Oximetry 99 98 99 05/25/18 07:00 05/25/18 07:14 05/25/18 07:15 Temperature 97.3 F L Pulse Rate 86 86 86 Respiratory Rate 24 24 24 Blood Pressure 68/51 L 81/56 L 73/57 L Pulse Oximetry 99 99 99 05/25/18 07:30 05/25/18 07:45 05/25/18 08:00 Temperature 97.2 F L Pulse Rate 85 84 84 Respiratory Rate 24 24 24 Blood Pressure 94/68 L 112/71 116/82 Pulse Oximetry 100 100 100 05/25/18 08:15 05/25/18 08:30 05/25/18 08:37 Temperature Pulse Rate 84 83 Respiratory Rate 24 24 24 Blood Pressure 115/74 115/83 Pulse Oximetry 100 100 100 05/25/18 08:39 05/25/18 08:45 05/25/18 09:00 Temperature 97.3 F L Pulse Rate 82 86 84 Respiratory Rate 24 24 24 Blood Pressure 83/55 L 122/75 Pulse Oximetry 100 100 05/25/18 09:15 05/25/18 09:30 05/25/18 09:45 Temperature Pulse Rate 81 80 79 Respiratory Rate 24 24 24 Blood Pressure 131/89 135/91 H 133/91 H Pulse Oximetry 100 100 100 05/25/18 10:00 05/25/18 10:29 Temperature Pulse Rate 81 Respiratory Rate 24 24 Blood Pressure 135/94 H Pulse Oximetry 100 100 Intake & Output 05/24/18 05/25/18 05/25/18 18:59 06:59 18:59 Intake Total 250 / 250 7451.5 / 7451.5 1308 / 1308 Output Total 150 / 150 Balance 250 / 250 7301.5 / 7301.5 1308 / 1308 Weight 64 kg 68.6 kg Intake: IV 250 / 250 7451.5 / 7451.5 1308 / 1308 NovoLIN R (IV Infusion) 100 112 / 112 UNIT In NS Inj 99 ML @ 7 UNITS/ HR 7 mls/hr IV.CONT TITRATE PRN Rx#:[id number] Protonix Inj 80 MG In NS Inj 124 / 124 76 / 76 100 ML @ 10 mls/hr IV.CONT CONT [facility] Rx#:[id number] NS Inj 1,000 ML @ 150 mls/hr IV 1999 .CONT .Q6H40M [facility] Rx#:[id number] Sodium Bicarbonate 8.4% Inj 150 104 / 104 896 / 896 MEQ In Sterile Water for Inj 850 ML @ 150 mls/hr IV.CONT . Q6H40M [facility] Rx#:[id number] Pitressin Inj 40 UNIT In NS Inj 13 / 13 98 ML @ 0.01 UNITS/MIN 1.5 mls /hr IV.CONT CONT [facility] Rx#: [id number] Levophed-Dextrose 4 mg/250 ml 250 / 250 664 / 664 336 / 336 Drip 4 mg In 250 ml @ 2 MCG/MIN 7.5 mls/hr IV.SIG TITRATE PRN Rx#:[id number] Zosyn 3.375 GM Premix 50 ML @ 50 / 50 100 mls/hr IV.SIG ONCE ONE Rx#: [id number] Zosyn 4.5 GM Premix 4.5 gm In 100 / 100 100 ml @ 200 mls/hr IV.SIG Q8H [facility] Rx#:[id number] NS Inj 3,000 ML @ As Directed 4000 / 4000 IV.SIG BOLUS ONE Rx#:[id number] Vancomycin Inj 1,250 MG In NS 262.5 / 262.5 Inj 250 ML @ 250 mls/hr IV.SIG ONCE ONE Rx#:[id number] fentaNYL 10 mcg/mL Premix Drip 2,500 mcg In 250 ml @ 50 MCG/HR 5 mls/hr IV.SIG TITRATE PRN Rx #:[id number] Output: Urine Amount (Catheter) 100 / 100 Indwelling Urethral Catheter 100 / 100 Gastric Drainage 50 / 50 Orogastric Tube 50 / 50 Other: # Bowel Movements 0 Weight On Admission 64 kg - Constitutional no acute distress - Routine HEENT Exam Head: Present: normocephalic - Routine Neck Exam Absent: JVD - Routine Respiratory Exam Present: patient mechanically ventilated, decreased breath sounds, rhonchi - Routine Cardiovascular Exam Present: RRR - Routine Abdominal Exam Present: soft, normoactive bowel sounds - Routine Extremities Exam Absent: edema - Routine Skin Exam Present: intact, warm - Detailed Neurological Exam: Coma Scale Eye Opening: To sound - Urinary Catheter Management Indwelling Temp Sensing Catheter Cath placed during this visit: yes Reason for continuing: Hourly intake/output Insertion date: 05/24/18 Insertion time: 13:00 Indwelling Urethral Catheter Cath placed during this visit: no Reason for continuing: Hourly intake/output <Cheryle Jones - Last Filed: 05/25/18 15:24> Vital signs: Vital Signs 05/24/18 22:08 05/24/18 22:15 05/24/18 22:23 Temperature Pulse Rate 105 H 117 H 134 H Respiratory Rate 9 L 24 Blood Pressure 79/55 L Pulse Oximetry 97 97 05/24/18 22:30 05/24/18 22:45 05/24/18 23:00 Temperature Pulse Rate 134 H 103 H 113 H Respiratory Rate 24 24 24 Blood Pressure 82/53 L 81/57 L 76/58 L Pulse Oximetry 97 98 97 05/24/18 23:15 05/24/18 23:30 05/24/18 23:45 Temperature Pulse Rate 105 H 104 H 111 H Respiratory Rate 24 24 24 Blood Pressure 77/58 L 73/56 L 72/51 L Pulse Oximetry 97 97 97 05/25/18 00:00 05/25/18 00:15 05/25/18 00:30 Temperature 99.3 F Pulse Rate 108 H 112 H 105 H Respiratory Rate 24 24 24 Blood Pressure 76/53 L 77/62 L 73/51 L Pulse Oximetry 95 96 96 05/25/18 00:45 05/25/18 01:00 05/25/18 01:02 Temperature Pulse Rate 104 H 105 H Respiratory Rate 24 24 24 Blood Pressure 74/50 L 86/54 L Pulse Oximetry 97 97 99 05/25/18 01:15 05/25/18 01:30 05/25/18 01:45 Temperature Pulse Rate 102 H 99 H 97 H Respiratory Rate 24 24 24 Blood Pressure 85/56 L 87/60 L 86/56 L Pulse Oximetry 97 98 98 05/25/18 02:00 05/25/18 02:15 05/25/18 02:30 Temperature Pulse Rate 95 H 96 H 96 H Respiratory Rate 24 24 24 Blood Pressure 93/62 L 102/62 101/65 Pulse Oximetry 98 99 98 05/25/18 02:45 05/25/18 03:00 05/25/18 03:06 Temperature Pulse Rate 97 H 96 H Respiratory Rate 24 24 24 Blood Pressure 97/69 L 105/68 Pulse Oximetry 99 99 99 05/25/18 03:15 05/25/18 03:30 05/25/18 03:45 Temperature Pulse Rate 96 H 96 H 95 H Respiratory Rate 24 24 24 Blood Pressure 112/73 106/70 108/70 Pulse Oximetry 99 99 99 05/25/18 04:00 05/25/18 04:15 05/25/18 04:30 Temperature 96.8 F L Pulse Rate 94 H 93 H 93 H Respiratory Rate 24 25 H 25 H Blood Pressure 117/77 109/78 107/70 Pulse Oximetry 100 100 100 05/25/18 04:45 05/25/18 05:00 05/25/18 05:15 Temperature Pulse Rate 93 H 93 H 94 H Respiratory Rate 25 H 25 H 25 H Blood Pressure 97/60 L 95/63 L 90/63 L Pulse Oximetry 99 99 99 05/25/18 05:30 05/25/18 05:45 05/25/18 06:00 Temperature Pulse Rate 93 H 92 H 92 H Respiratory Rate 26 H 26 H 25 H Blood Pressure 91/65 L 77/61 L 86/62 L Pulse Oximetry 99 99 99 05/25/18 06:15 05/25/18 06:30 05/25/18 06:45 Temperature Pulse Rate 92 H 90 94 H Respiratory Rate 25 H 24 24 Blood Pressure 83/59 L 86/61 L 107/75 Pulse Oximetry 99 98 99 05/25/18 07:00 05/25/18 07:14 05/25/18 07:15 Temperature 97.3 F L Pulse Rate 86 86 86 Respiratory Rate 24 24 24 Blood Pressure 68/51 L 81/56 L 73/57 L Pulse Oximetry 99 99 99 05/25/18 07:30 05/25/18 07:45 05/25/18 08:00 Temperature 97.2 F L Pulse Rate 85 84 84 Respiratory Rate 24 24 24 Blood Pressure 94/68 L 112/71 116/82 Pulse Oximetry 100 100 100 05/25/18 08:15 05/25/18 08:30 05/25/18 08:37 Temperature Pulse Rate 84 83 Respiratory Rate 24 24 24 Blood Pressure 115/74 115/83 Pulse Oximetry 100 100 100 05/25/18 08:39 05/25/18 08:45 05/25/18 09:00 Temperature 97.3 F L Pulse Rate 82 86 84 Respiratory Rate 24 24 24 Blood Pressure 83/55 L 122/75 Pulse Oximetry 100 100 05/25/18 09:15 05/25/18 09:30 05/25/18 09:45 Temperature Pulse Rate 81 80 79 Respiratory Rate 24 24 24 Blood Pressure 131/89 135/91 H 133/91 H Pulse Oximetry 100 100 100 05/25/18 10:00 05/25/18 10:29 05/25/18 12:00 Temperature Pulse Rate 81 106 H Respiratory Rate 24 24 Blood Pressure 135/94 H Pulse Oximetry 100 100 05/25/18 12:15 05/25/18 12:30 05/25/18 12:45 Temperature Pulse Rate 95 H 93 H 91 H Respiratory Rate 24 24 24 Blood Pressure 108/81 103/67 105/76 Pulse Oximetry 99 99 99 05/25/18 13:00 05/25/18 13:15 05/25/18 13:31 Temperature Pulse Rate 91 H 90 91 H Respiratory Rate 24 24 24 Blood Pressure 121/78 96/62 L 92/65 L Pulse Oximetry 99 98 99 05/25/18 13:45 05/25/18 14:00 05/25/18 14:15 Temperature Pulse Rate 87 92 H 93 H Respiratory Rate 24 24 24 Blood Pressure 88/65 L 115/71 108/72 Pulse Oximetry 99 99 100 05/25/18 14:30 05/25/18 14:45 05/25/18 15:00 Temperature Pulse Rate 96 H 97 H 97 H Respiratory Rate 30 H 24 25 H Blood Pressure 101/75 91/70 L 95/71 L Pulse Oximetry 99 98 05/25/18 15:15 05/25/18 15:30 05/25/18 15:45 Temperature Pulse Rate 97 H 97 H 98 H Respiratory Rate 25 H 26 H 25 H Blood Pressure 86/69 L 97/71 L 92/66 L Pulse Oximetry 97 95 96 05/25/18 16:00 05/25/18 16:29 05/25/18 16:30 Temperature Pulse Rate 97 H 97 H Respiratory Rate 25 H 24 24 Blood Pressure 124/76 103/72 Pulse Oximetry 97 99 95 05/25/18 16:45 05/25/18 17:00 05/25/18 17:15 Temperature Pulse Rate 97 H 100 H 99 H Respiratory Rate 25 H 26 H 27 H Blood Pressure 102/73 101/71 95/70 L Pulse Oximetry 91 L 97 05/25/18 17:30 05/25/18 17:40 05/25/18 17:45 Temperature Pulse Rate 101 H 101 H 101 H Respiratory Rate 25 H 12 26 H Blood Pressure 79/59 L 97/64 L 96/68 L Pulse Oximetry 100 100 100 05/25/18 18:00 05/25/18 18:15 05/25/18 18:30 Temperature Pulse Rate 96 H 99 H 96 H Respiratory Rate 6 L 7 L 26 H Blood Pressure 88/60 L 103/67 111/69 Pulse Oximetry 100 100 100 05/25/18 18:45 05/25/18 19:00 05/25/18 19:15 Temperature Pulse Rate 95 H 97 H 93 H Respiratory Rate 17 14 21 Blood Pressure 98/62 L 122/61 91/70 L Pulse Oximetry 99 100 100 05/25/18 19:30 05/25/18 21:29 05/25/18 21:32 Temperature Pulse Rate 94 H 96 H Respiratory Rate 4 L 24 24 Blood Pressure 127/82 Pulse Oximetry 99 99 Intake & Output 05/25/18 05/25/18 05/26/18 06:59 18:59 06:59 Intake Total 7451.5 / 7451.5 1308 / 1308 1087 / 1087 Output Total 150 / 150 15 / 15 Balance 7301.5 / 7301.5 1293 / 1293 1087 / 1087 Weight 68.6 kg Intake: IV 7451.5 / 7451.5 1308 / 1308 1087 / 1087 NovoLIN R (IV Infusion) 100 112 / 112 UNIT In NS Inj 99 ML @ 7 UNITS/ HR 7 mls/hr IV.CONT TITRATE PRN Rx#:[id number] Protonix Inj 80 MG In NS Inj 124 / 124 76 / 76 100 ML @ 10 mls/hr IV.CONT CONT [facility] Rx#:[id number] NS Inj 1,000 ML @ 150 mls/hr IV 1999 / 1999 .CONT .Q6H40M [facility] Rx#:[id number] Sodium Bicarbonate 8.4% Inj 150 104 / 104 896 / 896 1000 / 1000 MEQ In Sterile Water for Inj 850 ML @ 150 mls/hr IV.CONT . Q6H40M [facility] Rx#:[id number] Pitressin Inj 40 UNIT In NS Inj 13 / 87 / 87 98 ML @ 0.01 UNITS/MIN 1.5 mls /hr IV.CONT CONT [facility] Rx#: [id number] Levophed-Dextrose 4 mg/250 ml 664 / 664 336 / 336 Drip 4 mg In 250 ml @ 2 MCG/MIN 7.5 mls/hr IV.SIG TITRATE PRN Rx#:[id number] Zosyn 3.375 GM Premix 50 ML @ 50 / 50 100 mls/hr IV.SIG ONCE ONE Rx#: [id number] Zosyn 4.5 GM Premix 4.5 gm In 100 / 100 100 ml @ 200 mls/hr IV.SIG Q8H [facility] Rx#:[id number] NS Inj 3,000 ML @ As Directed 4000 / 4000 IV.SIG BOLUS ONE Rx#:[id number] Vancomycin Inj 1,250 MG In NS 262.5 / 262.5 Inj 250 ML @ 250 mls/hr IV.SIG ONCE ONE Rx#:[id number] fentaNYL 10 mcg/mL Premix Drip 22 / 22 2,500 mcg In 250 ml @ 50 MCG/HR 5 mls/hr IV.SIG TITRATE PRN Rx #:[id number] Output: Urine 15 / 15 Urine Amount (Catheter) 100 / 100 Indwelling Urethral Catheter 100 / 100 Gastric Drainage 50 / 50 Orogastric Tube 50 / 50 Other: # Bowel Movements 0 0 - Urinary Catheter Management Indwelling Temp Sensing Catheter Cath placed during this visit: no Indwelling Urethral Catheter Cath placed during this visit: no <Judy Jackson - Last Filed: 05/25/18 22:06> Assessment and Plan - Assessment (1) Acute kidney injury Code(s): N17.9 - Acute kidney failure, unspecified Status: Acute Plan: Acute kidney injury which is multifactorial, possibly related to rhabdomyolysis and possibly acute tubular necrosis from the hypotension and also dehydration. Creatinine at 6.37 from 6.08 Urinary output at 100ml /24 hours Acidosis has improved HCO3 21.9 Continue IVF/'s Avoid nephrotoxin and hypotension. Hyperkalemia with potassium of 6.0 treated with Insulin/D50 and Kayexalate Follow the urine output and the BUN and creatinine. If the potassium does not improve,he possibly will need dialysis Palliative care is following. (2) Acute hypernatremia Code(s): E87.0 - Hyperosmolality and hypernatremia Status: Acute - Plan Continue D5w with sodium bicarbonate <Cheryle Jones - Last Filed: 05/25/18 15:24> - Assessment (1) Acute kidney injury Code(s): N17.9 - Acute kidney failure, unspecified Status: Acute (2) Acute hypernatremia Code(s): E87.0 - Hyperosmolality and hypernatremia Status: Acute - Attending Attestation Patient seen and examined, agree with above. BP is low, on pressors, K is elevated. Most likely has ATN causing DAVION. If not better, possibly will need HD. <Judy Jackson - Last Filed: 05/25/18 22:06>
[2018-05-25] MEDS: Piperacil/Tazo 2.25 GM Premix 50 ML IV.SIG SCH (16:41)
[2018-05-25] MEDS ORDERED: Calcium Chloride Inj 0.3 GM in Sodium Chlor 0.9% Inj 100 ML IV.SIG ONE (18:00)
[2018-05-25 20:30] LABS: Carbon Dioxide 24.7 meq/L (21.0-32.0); Potassium 4.9 meq/L (3.5-5.1)
[2018-05-25 20:57] LABS: Total Protein 5.4 g/dL (6.4-8.2)
[2018-05-25] MEDS: Vasopressin Inj 40 UNIT in Sodium Chlor 0.9% Inj 98 ML IV.CONT SCH (21:55)
[2018-05-25] MEDS ORDERED: Dextrose 50% in Water 50 ML Vial IV.PUSH PRN (22:00)
[2018-05-25] MEDS ORDERED: Insulin Detemir Inj 1,000 UNIT/10 ML Vial SQ SCH (22:00)
[2018-05-26] MEDS: Piperacil/Tazo 2.25 GM Premix 50 ML IV.SIG SCH ×3 (00:42→17:07)
[2018-05-26] MEDS: Pantoprazole Inj 80 MG in Sodium Chlor 0.9% Inj 100 ML IV.CONT SCH ×3 (00:56→23:02)
[2018-05-26] MEDS: Chlorhexidine Gluconate 2% 1 Pack (2 Cloths) TOPICAL SCH (04:15)
[2018-05-26] MEDS: Sodium Bicarbonate 8.4% Inj 150 MEQ in Water for Inj, Sterile 850 ML IV.CONT SCH ×2 (04:16→12:36)
[2018-05-26] MEDS: Insulin NovoLOG Aspart Correctional Sugar Inj SQ SCH ×4 (04:18→18:23)
[2018-05-26 04:47] LABS: Albumin 1.8 g/dL (3.4-5.0); Potassium 5.5 meq/L (3.5-5.1); Vancomycin,Random 16.7 Comment
[2018-05-26 05:08] LABS: Baso % (Auto) 0.2 % (0.0-2.0); Eos % (Auto) 0.1 % (0.0-4.0); Hemoglobin 13.3 gm/dL (13.0-17.0); Lymph % (Auto) 6.9 % (9.0-44.0); Mean Corpuscular HGB Conc 33.4 % (32.0-36.0); Mean Corpuscular Hemoglobin 30.7 pg (27.0-34.0); Mean Corpuscular Volume 91.9 fL (80.0-100.0); Mono # (Auto) 1.1 th/mm3 (0.0-0.9); Mono % (Auto) 7.3 % (0.0-8.0); Neut # (Auto) 12.8 th/mm3 (1.8-7.7); Neut % (Auto) 85.5 % (16.0-70.0); Platelet Count 56 th/mm3 (150-450); Red Blood Count 4.35 mil/mm3 (4.50-5.90); Red Cell Distribution Width 13.9 % (11.6-17.2); White Blood Count 14.9 th/mm3 (4.0-11.0)
[2018-05-26 07:27] LABS: Lymphocytes 4 % (9-44); Monocytes 5 % (0-8); RBC Morphology Normal (Normal); Tallied Nucleated RBC 1 (0-0)
--- NOTE | 2018-05-26 08:07 | P.PNCC ---
Subjective Subjective Remarks/Hospital Course: The patient is a 72-year-old male with a past medical history of hypertension and diabetes mellitus who presented to [facility] ED after he was found unresponsive at home by EMS. EMS received a call from a well-check. Bag valve mask ventilation assisted respirations and patient was found hypotensive, and hypothermic as well. He was transported to the ED for evaluation. On arrival, the patient was hypothermic with a temperature of 93.1 and hypotensive with a blood pressure of 93/50. He was intubated and placed on full mechanical ventilation. In the ED, the patient received 3 liters of crystalloids. Post-intubation, the patient had approximately 200 mL of coffee- ground emesis from the OG tube. His laboratory data is significant for leukocytosis with a WBC of 20 and acute renal failure with a BUN of 170, creatinine 6.79. In addition, the patient was hyperglycemic with a blood sugar of 1010. Other abnormal labs showed electrolyte abnormalities with a sodium level of 156, potassium 6.7. In addition, the patient had lactic acidosis with initial lactic acid level 4.9, which decreased to 3.1 on repeat. Also, his total CK was elevated at 2630. He received Zosyn and 1 dose of vancomycin in the ER for leukocytosis. ABG post-intubation showed a pH of 7.12, CO2 of 56, PaO2 of 507, bicarbonate 17, saturation of 98% on PRVC rate of 18, tidal volume 450, PEEP of 5, I time 1.0 and FiO2 of 40%. The patient is scheduled to undergo CT scan of the brain, abdomen and pelvis without contrast. Also nephrology service has been notified by the ED physician, Dr. Moreno. Right femoral central line was placed by ED. 05/25 Patient is intubated and sedated with Fentanyl infusion. On Levophed 12 mics , Vasopressin 0.01, insulin drip 1.5u/hr and bicarb drip. CT brain showed no acute findings, CT abd/pelvis showed gallstones no acute abnormalities. 05/26 Patient remains intubated and sedated with Fentanyl. Remains on Vasopressin and bicarb drip. Afebrile, off Levophed. He was made no code DNR yesterday, by palliative care. Objective Vital Signs / I&O: Vital Signs 05/25/18 08:15 05/25/18 08:30 05/25/18 08:37 Temperature Pulse Rate 84 83 Respiratory Rate 24 24 24 Blood Pressure 115/74 115/83 Pulse Oximetry 100 100 100 05/25/18 08:39 05/25/18 08:45 05/25/18 09:00 Temperature 97.3 F L Pulse Rate 82 86 84 Respiratory Rate 24 24 24 Blood Pressure 83/55 L 122/75 Pulse Oximetry 100 100 05/25/18 09:15 05/25/18 09:30 05/25/18 09:45 Temperature Pulse Rate 81 80 79 Respiratory Rate 24 24 24 Blood Pressure 131/89 135/91 H 133/91 H Pulse Oximetry 100 100 100 05/25/18 10:00 05/25/18 10:29 05/25/18 12:00 Temperature Pulse Rate 81 106 H Respiratory Rate 24 24 Blood Pressure 135/94 H Pulse Oximetry 100 100 05/25/18 12:15 05/25/18 12:30 05/25/18 12:45 Temperature Pulse Rate 95 H 93 H 91 H Respiratory Rate 24 24 24 Blood Pressure 108/81 103/67 105/76 Pulse Oximetry 99 99 99 05/25/18 13:00 05/25/18 13:15 05/25/18 13:31 Temperature Pulse Rate 91 H 90 91 H Respiratory Rate 24 24 24 Blood Pressure 121/78 96/62 L 92/65 L Pulse Oximetry 99 98 99 05/25/18 13:45 05/25/18 14:00 05/25/18 14:15 Temperature Pulse Rate 87 92 H 93 H Respiratory Rate 24 24 24 Blood Pressure 88/65 L 115/71 108/72 Pulse Oximetry 99 99 100 05/25/18 14:30 05/25/18 14:45 05/25/18 15:00 Temperature Pulse Rate 96 H 97 H 97 H Respiratory Rate 30 H 24 25 H Blood Pressure 101/75 91/70 L 95/71 L Pulse Oximetry 99 98 05/25/18 15:15 05/25/18 15:30 05/25/18 15:45 Temperature Pulse Rate 97 H 97 H 98 H Respiratory Rate 25 H 26 H 25 H Blood Pressure 86/69 L 97/71 L 92/66 L Pulse Oximetry 97 95 96 05/25/18 16:00 05/25/18 16:29 07/06/18 16:30 Temperature Pulse Rate 97 H 97 H Respiratory Rate 25 H 24 24 Blood Pressure 124/76 103/72 Pulse Oximetry 97 99 95 05/25/18 16:45 05/25/18 17:00 05/25/18 17:15 Temperature Pulse Rate 97 H 100 H 99 H Respiratory Rate 25 H 26 H 27 H Blood Pressure 102/73 101/71 95/70 L Pulse Oximetry 91 L 97 05/25/18 17:30 05/25/18 17:40 05/25/18 17:45 Temperature Pulse Rate 101 H 101 H 101 H Respiratory Rate 25 H 12 26 H Blood Pressure 79/59 L 97/64 L 96/68 L Pulse Oximetry 100 100 100 05/25/18 18:00 05/25/18 18:15 05/25/18 18:30 Temperature Pulse Rate 96 H 99 H 96 H Respiratory Rate 6 L 7 L 26 H Blood Pressure 88/60 L 103/67 111/69 Pulse Oximetry 100 100 100 05/25/18 18:45 05/25/18 19:00 05/25/18 19:15 Temperature Pulse Rate 95 H 97 H 93 H Respiratory Rate 17 14 21 Blood Pressure 98/62 L 122/61 91/70 L Pulse Oximetry 99 100 100 05/25/18 19:30 05/25/18 20:00 05/25/18 20:01 Temperature 99.1 F Pulse Rate 94 H 93 H 92 H Respiratory Rate 4 L 24 24 Blood Pressure 127/82 94/70 L 94/70 L Pulse Oximetry 99 99 99 05/25/18 21:29 05/25/18 21:32 05/25/18 22:00 Temperature Pulse Rate 96 H 132 H Respiratory Rate 24 24 Blood Pressure Pulse Oximetry 99 05/26/18 00:00 05/26/18 00:05 05/26/18 00:50 Temperature 99.1 F Pulse Rate 98 H 96 H Respiratory Rate 24 0 L 24 Blood Pressure 104/73 Pulse Oximetry 95 95 97 05/26/18 02:00 05/26/18 03:53 05/26/18 04:00 Temperature 98.8 F Pulse Rate 98 H 90 Respiratory Rate 24 21 Blood Pressure 86/62 L Pulse Oximetry 97 97 05/26/18 06:00 Temperature Pulse Rate 90 Respiratory Rate Blood Pressure Pulse Oximetry Intake & Output 05/25/18 05/26/18 05/26/18 18:59 06:59 18:59 Intake Total 1358 / 1358 2340.5 / 2340.5 Output Total 425 / 425 Balance 1343 / 1343 1915.5 / 1915.5 Weight 71.8 kg Intake: IV 1358 / 1358 2340.5 / 2340.5 Protonix Inj 80 MG In NS Inj 76 / 76 100 / 100 100 ML @ 10 mls/hr IV.CONT CONT [facility] Rx#:[id number] Sodium Bicarbonate 8.4% Inj 150 896 / 896 2000 / 2000 MEQ In Sterile Water for Inj 850 ML @ 150 mls/hr IV.CONT . Q6H40M [facility] Rx#:[id number] Pitressin Inj 40 UNIT In NS Inj 87 / 87 98 ML @ 0.01 UNITS/MIN 1.5 mls /hr IV.CONT CONT [facility] Rx#: [id number] Calcium Chloride Inj 0.3 GM In 103.5 / 103.5 NS Inj 100 ML @ 206 mls/hr IV. SIG ONCE ONE Rx#:[id number] Levophed-Dextrose 4 mg/250 ml 336 / 336 Drip 4 mg In 250 ml @ 2 MCG/MIN 7.5 mls/hr IV.SIG TITRATE PRN Rx#:[id number] Zosyn 2.25 GM Premix 50 ML @ 50 / 50 50 / 50 100 mls/hr IV.SIG Q8H [facility] Rx#: [id number] Tube Feeding 0 / 0 Output: Urine / Stool 350 / 350 Urine Amount (Catheter) 75 / 75 Indwelling Urethral Catheter 75 / 75 Other: Date of Last Bowel Movement 05/26/18 # Bowel Movements 0 Result Diagrams: 05/26/18 04:00 05/26/18 04:00 Objective Remarks: GENERAL: Patient is 72 yo intubated critically ill on multiple pressors. SKIN: Warm and dry. HEAD: Normocephalic. EYES: No scleral icterus. No injection or drainage. NECK: Supple, trachea midline. No JVD or lymphadenopathy. CARDIOVASCULAR: Regular rate and rhythm without murmurs, gallops, or rubs. RESPIRATORY: Breath sounds equal bilaterally. No accessory muscle use. GASTROINTESTINAL: Abdomen soft, non-tender, nondistended. MUSCULOSKELETAL: No cyanosis, or edema. Neuro: Intubated, sedated Assessment and Plan - Assessment and Plan Plan: 1. Acute hypercapnic respiratory failure. 2. Encephalopathy. 3. Lactic acidemia. 4. Leukocytosis. 5. Acute renal failure. 6. Nonketotic hyperosmolar hyperglycemia. 7. Electrolyte abnormalities, which include hypernatremia and Hyperkalemia. 8. Elevated CK. 9. Dehydration. 10. Questionable gastrointestinal bleed. 11. History of hypertension. 12. History of diabetes mellitus. Plan Neuro: Monitor neuro status , on fentanyl infusion for sedation. Daily sedation vacation. UDS is negative. CT brain - no acute intracranial findings. Pulm: Continue with vent support and maintain sats > 92%. Bronchodilators. ICU vent bundle. I CV: On Vasopressin, wean off pressors as eduardo keep MAP> 65 mmHg. Given total 7L crystalloids since admission. On bicarb drip. Lactic acid cleared 1.9 : Monitor renal function I's and O's and avoid nephrotoxins. Cr: 6.6 , K: 5.5, will give Kayexalate, 7u regular IV insulin and D50 Renal is following, on SW+3amps bicarb @150ml/hr, check renal US. Monitor CK's, on Free water 300ml Q4 GI: continue with Protonix drip GI consulted. CT abd/pelvis showed gallstones, no acute findings. Monitor LFT's, check Hepatitis profile. ID: Continue with abx(vancomycin and Zosyn)monitor for signs of infections ( fever, WBC) WBC is trending down. Follow up on blood cultures- NGTD Endo: Off Insulin drip , on SSI and Levemir insulin 5u Heme: Monitor CBC GI prophylaxis- on Protonix drip. DVT prophylaxis with SCD's Palliative care is following. Healthcare proxy sister Sabina refusing HD and leaning toward transitioning to comfort care. Patient is critically ill with respiratory failure, renal failure, septic shock and multiple organ injury. Right femoral central line placed by ED 05/24 Code status: No code DNR CCT 30 mins
[2018-05-26] MEDS: Senna/Docusate Sodium 8.6/50 MG Tablet PO SCH (08:16)
[2018-05-26] MEDS ORDERED: Sodium Polystyrene Sulfonate/Sorbitol Liq 15 GM/60 ML UDC PO ONE (08:45)
[2018-05-26 12:00] LABS: Hepatitis A IgM Antibody Nonreactive (Nonreactive); Hepatitits B Surface Antigen Nonreactive (Nonreactive)
--- NOTE | 2018-05-26 13:10 | P.PNNP ---
Subjective Interval history: remains intubated Physical Exam Vital signs: Vital Signs 05/25/18 13:15 05/25/18 13:31 05/25/18 13:45 Temperature Pulse Rate 90 91 H 87 Respiratory Rate 24 24 24 Blood Pressure 96/62 L 92/65 L 88/65 L Pulse Oximetry 98 99 99 05/25/18 14:00 05/25/18 14:15 05/25/18 14:30 Temperature Pulse Rate 92 H 93 H 96 H Respiratory Rate 24 24 30 H Blood Pressure 115/71 108/72 101/75 Pulse Oximetry 99 100 05/25/18 14:45 05/25/18 15:00 05/25/18 15:15 Temperature Pulse Rate 97 H 97 H 97 H Respiratory Rate 24 25 H 25 H Blood Pressure 91/70 L 95/71 L 86/69 L Pulse Oximetry 99 98 97 05/25/18 15:30 05/25/18 15:45 05/25/18 16:00 Temperature Pulse Rate 97 H 98 H 97 H Respiratory Rate 26 H 25 H 25 H Blood Pressure 97/71 L 92/66 L 124/76 Pulse Oximetry 95 96 97 05/25/18 16:29 05/25/18 16:30 05/25/18 16:45 Temperature Pulse Rate 97 H 97 H Respiratory Rate 24 24 25 H Blood Pressure 103/72 102/73 Pulse Oximetry 99 95 91 L 05/25/18 17:00 05/25/18 17:15 05/25/18 17:30 Temperature Pulse Rate 100 H 99 H 101 H Respiratory Rate 26 H 27 H 25 H Blood Pressure 101/71 95/70 L 79/59 L Pulse Oximetry 97 100 05/25/18 17:40 05/25/18 17:45 05/25/18 18:00 Temperature Pulse Rate 101 H 101 H 96 H Respiratory Rate 12 26 H 6 L Blood Pressure 97/64 L 96/68 L 88/60 L Pulse Oximetry 100 100 100 05/25/18 18:15 05/25/18 18:30 05/25/18 18:45 Temperature Pulse Rate 99 H 96 H 95 H Respiratory Rate 7 L 26 H 17 Blood Pressure 103/67 111/69 98/62 L Pulse Oximetry 100 100 99 05/25/18 19:00 05/25/18 19:15 05/25/18 19:30 Temperature Pulse Rate 97 H 93 H 94 H Respiratory Rate 14 21 4 L Blood Pressure 122/61 91/70 L 127/82 Pulse Oximetry 100 100 99 05/25/18 20:00 05/25/18 20:01 05/25/18 21:29 Temperature 99.1 F Pulse Rate 93 H 92 H 96 H Respiratory Rate 24 24 24 Blood Pressure 94/70 L 94/70 L Pulse Oximetry 99 99 05/25/18 21:32 05/25/18 22:00 05/26/18 00:00 Temperature 99.1 F Pulse Rate 132 H 98 H Respiratory Rate 24 24 Blood Pressure 104/73 Pulse Oximetry 99 95 05/26/18 00:05 05/26/18 00:50 05/26/18 02:00 Temperature Pulse Rate 96 H 98 H Respiratory Rate 0 L 24 Blood Pressure Pulse Oximetry 95 97 05/26/18 03:53 05/26/18 04:00 05/26/18 06:00 Temperature 98.8 F Pulse Rate 90 90 Respiratory Rate 24 21 Blood Pressure 86/62 L Pulse Oximetry 97 97 05/26/18 08:00 05/26/18 08:07 05/26/18 10:00 Temperature 97.7 F Pulse Rate 89 91 H Respiratory Rate 24 Blood Pressure 112/76 Pulse Oximetry 97 97 05/26/18 11:42 05/26/18 12:00 Temperature 98.5 F Pulse Rate 87 Respiratory Rate 16 Blood Pressure 97/62 L Pulse Oximetry 98 97 Intake & Output 05/25/18 05/26/18 05/26/18 18:59 06:59 18:59 Intake Total 1358 / 1358 2340.5 / 2340.5 1150 / 1150 Output Total 425 / 425 Balance 1343 / 1343 1915.5 / 1915.5 1150 / 1150 Weight 71.8 kg Intake: IV 1358 / 1358 2340.5 / 2340.5 1150 / 1150 Protonix Inj 80 MG In NS Inj 76 / 76 100 / 100 100 / 100 100 ML @ 10 mls/hr IV.CONT CONT [facility] Rx#:[id number] Sodium Bicarbonate 8.4% Inj 150 896 / 896 2000 / 1999 1000 / 1000 MEQ In Sterile Water for Inj 850 ML @ 150 mls/hr IV.CONT . Q6H40M [facility] Rx#:[id number] Pitressin Inj 40 UNIT In NS Inj 87 / 87 98 ML @ 0.01 UNITS/MIN 1.5 mls /hr IV.CONT CONT [facility] Rx#: [id number] Calcium Chloride Inj 0.3 GM In 103.5 / 103.5 NS Inj 100 ML @ 206 mls/hr IV. SIG ONCE ONE Rx#:[id number] Levophed-Dextrose 4 mg/250 ml 336 / 336 Drip 4 mg In 250 ml @ 2 MCG/MIN 7.5 mls/hr IV.SIG TITRATE PRN Rx#:[id number] Zosyn 2.25 GM Premix 50 ML @ 50 / 50 50 / 50 50 / 50 100 mls/hr IV.SIG Q8H [facility] Rx#: [id number] Tube Feeding 0 / 0 Output: Urine 15 / 15 Stool 350 / 350 Urine Amount (Catheter) 75 / Indwelling Urethral Catheter / Other: Date of Last Bowel Movement 05/26/18 05/26/18 # Bowel Movements 0 - Constitutional no acute distress - Routine HEENT Exam Head: Present: normocephalic - Routine Neck Exam Present: supple - Routine Respiratory Exam Present: distant breath sounds - Routine Abdominal Exam Present: soft - Routine Skin Exam Present: intact - Routine Neurological Exam sedated - Detailed Neurological Exam: Coma Scale Eye Opening: None Verbal Response: None Motor Response: None [place] Coma Scale Total: 3 - Routine Psychiatric Exam Present: unable to assess - Urinary Catheter Management Indwelling Temp Sensing Catheter Cath placed during this visit: yes Reason for continuing: Hourly intake/output Insertion date: 05/24/18 Insertion time: 13:00 Indwelling Urethral Catheter Cath placed during this visit: no Reason for continuing: Hourly intake/output Assessment and Plan - Assessment (1) Acute kidney injury Code(s): N17.9 - Acute kidney failure, unspecified Status: Acute Plan: Acute kidney injury which is multifactorial, possibly related to rhabdomyolysis and possibly acute tubular necrosis from the hypotension and also dehydration. Creatinine at 6.3 ->6.6. Urinary output at 75ml /24 hours Acidosis has improved HCO3 24 Na 158 Continue IVFs - will adjust to decrease Na administered Avoid nephrotoxin and hypotension. Continue medical management of hyperkalemia - no dialysis per family. Palliative care is following. (2) Acute hypernatremia Code(s): E87.0 - Hyperosmolality and hypernatremia Status: Acute - Plan Continue D5w with sodium bicarbonate
[2018-05-26] MEDS ORDERED: Vancomycin Inj 1,250 MG in Sodium Chlor 0.9% Inj 250 ML IV.SIG ONE (14:00)
--- NOTE | 2018-05-26 16:12 | P.PNGI ---
Subjective Interval history: Patient remains in the intensive care setting nonresponsive Supported with mechanical ventilation Oral gastric tube clamped continue to monitor labs Physical Exam Vital signs: Vital Signs 05/25/18 16:29 05/25/18 16:30 05/25/18 16:45 Temperature Pulse Rate 97 H 97 H Respiratory Rate 24 24 25 H Blood Pressure 103/72 102/73 Pulse Oximetry 99 95 91 L 05/25/18 17:00 05/25/18 17:15 05/25/18 17:30 Temperature Pulse Rate 100 H 99 H 101 H Respiratory Rate 26 H 27 H 25 H Blood Pressure 101/71 95/70 L 79/59 L Pulse Oximetry 97 100 05/25/18 17:40 05/25/18 17:45 05/25/18 18:00 Temperature Pulse Rate 101 H 101 H 96 H Respiratory Rate 12 26 H 6 L Blood Pressure 97/64 L 96/68 L 88/60 L Pulse Oximetry 100 100 100 05/25/18 18:15 05/25/18 18:30 05/25/18 18:45 Temperature Pulse Rate 99 H 96 H 95 H Respiratory Rate 7 L 26 H 17 Blood Pressure 103/67 111/69 98/62 L Pulse Oximetry 100 100 99 05/25/18 19:00 05/25/18 19:15 05/25/18 19:30 Temperature Pulse Rate 97 H 93 H 94 H Respiratory Rate 14 21 4 L Blood Pressure 122/61 91/70 L 127/82 Pulse Oximetry 100 100 99 05/25/18 20:00 05/25/18 20:01 05/25/18 21:29 Temperature 99.1 F Pulse Rate 93 H 92 H 96 H Respiratory Rate 24 24 24 Blood Pressure 94/70 L 94/70 L Pulse Oximetry 99 99 05/25/18 21:32 05/25/18 22:00 05/26/18 00:00 Temperature 99.1 F Pulse Rate 132 H 98 H Respiratory Rate 24 24 Blood Pressure 104/73 Pulse Oximetry 99 95 05/26/18 00:05 05/26/18 00:50 05/26/18 02:00 Temperature Pulse Rate 96 H 98 H Respiratory Rate 0 L 24 Blood Pressure Pulse Oximetry 95 97 05/26/18 03:53 05/26/18 04:00 05/26/18 06:00 Temperature 98.8 F Pulse Rate 90 90 Respiratory Rate 24 21 Blood Pressure 86/62 L Pulse Oximetry 97 97 05/26/18 08:00 05/26/18 08:07 05/26/18 10:00 Temperature 97.7 F Pulse Rate 89 91 H Respiratory Rate 24 Blood Pressure 112/76 Pulse Oximetry 97 97 05/26/18 11:42 05/26/18 12:00 05/26/18 14:00 Temperature 98.5 F Pulse Rate 87 90 Respiratory Rate 16 Blood Pressure 97/62 L Pulse Oximetry 98 97 05/26/18 15:50 05/26/18 15:51 Temperature 98.1 F Pulse Rate 74 74 Respiratory Rate 16 Blood Pressure 115/76 Pulse Oximetry 100 Intake & Output 05/25/18 05/26/18 05/26/18 18:59 06:59 18:59 Intake Total 1358 / 1358 2340.5 / 2340.5 1150 / 1150 Output Total 425 / 425 Balance 1343 / 1343 1915.5 / 1915.5 1150 / 1150 Weight 71.8 kg Intake: IV 1358 / 1358 2340.5 / 2340.5 1150 / 1150 Protonix Inj 80 MG In NS Inj 76 / 76 100 / 100 100 / 100 100 ML @ 10 mls/hr IV.CONT CONT [facility] Rx#:[id number] Sodium Bicarbonate 8.4% Inj 150 896 / 896 1999 / 1999 1000 / 1000 MEQ In Sterile Water for Inj 850 ML @ 150 mls/hr IV.CONT . Q6H40M [facility] Rx#:[id number] Pitressin Inj 40 UNIT In NS Inj 87 / 87 98 ML @ 0.01 UNITS/MIN 1.5 mls /hr IV.CONT CONT [facility] Rx#: [id number] Calcium Chloride Inj 0.3 GM In 103.5 / 103.5 NS Inj 100 ML @ 206 mls/hr IV. SIG ONCE ONE Rx#:[id number] Levophed-Dextrose 4 mg/250 ml 336 / 336 Drip 4 mg In 250 ml @ 2 MCG/MIN 7.5 mls/hr IV.SIG TITRATE PRN Rx#:[id number] Zosyn 2.25 GM Premix 50 ML @ 50 / 50 50 / 50 50 / 50 100 mls/hr IV.SIG Q8H [facility] Rx#: [id number] Tube Feeding 0 / 0 Output: Urine 15 / 15 Stool 350 / 350 Urine Amount (Catheter) 75 / 75 Indwelling Urethral Catheter 75 / 75 Other: Date of Last Bowel Movement 05/26/18 05/26/18 # Bowel Movements 0 - Constitutional obtunded - Routine HEENT Exam Head: Present: normocephalic (Pale) Eye: Present: periorbital ecchymosis ENT: Present: mucous membranes dry - Routine Neck Exam Present: supple - Routine Respiratory Exam Present: decreased breath sounds, rhonchi (Mechanical ventilation ET tube) - Routine Cardiovascular Exam Present: RRR (70s) - Routine Abdominal Exam Present: normoactive bowel sounds (Soft minimal bowel sounds round, OG tube clamped, taut) - Routine Extremities Exam Present: pallor (No purposeful movement) - Routine Skin Exam Present: dry, pallor - Routine Neurological Exam Present: sensory deficit - Routine Psychiatric Exam Present: unable to assess - Urinary Catheter Management Indwelling Temp Sensing Catheter Cath placed during this visit: yes Reason for continuing: Hourly intake/output Insertion date: 05/24/18 Insertion time: 13:00 Indwelling Urethral Catheter Cath placed during this visit: no Reason for continuing: Hourly intake/output Results - Labs CBC & Chem 7: 05/26/18 04:00 05/26/18 04:00 Laboratory Results - last 24 hr 05/25/18 05/25/18 05/25/18 13:52 16:59 18:50 WBC RBC Hgb Hct MCV MCH MCHC RDW Plt Count MPV Prelim Diff (Auto) Neut % (Auto) Lymph % (Auto) Smith % (Auto) Eos % (Auto) Baso % (Auto) Neut # (Auto) Lymph # (Auto) Smith # (Auto) Eos # (Auto) Baso # (Auto) WBC Differential Seg Neuts % (Manual) Band Neuts % (Manual) Lymphocytes % (Manual) Monocytes % (Manual) Abs Neuts (Manual) Nucleated RBCs/100 WBC Differential Comment Platelet Estimate Platelet Morphology RBC Morphology Sodium 158 H* Potassium Chloride Carbon Dioxide Anion Gap BUN Creatinine Estimated GFR POC Glucose 197 H 120 H Random Glucose Calcium Prot Corrected Calcium Total Bilirubin AST ALT Alkaline Phosphatase Total Protein Albumin Random Vancomycin Hepatitis A IgM Ab Hep Bs Antigen Hep B Core IgM Ab Hep C IgG Ab 05/25/18 05/25/18 05/25/18 19:33 21:48 22:38 WBC RBC Hgb Hct MCV MCH MCHC RDW Plt Count MPV Prelim Diff (Auto) Neut % (Auto) Lymph % (Auto) Smith % (Auto) Eos % (Auto) Baso % (Auto) Neut # (Auto) Lymph # (Auto) Smith # (Auto) Eos # (Auto) Baso # (Auto) WBC Differential Seg Neuts % (Manual) Band Neuts % (Manual) Lymphocytes % (Manual) Monocytes % (Manual) Abs Neuts (Manual) Nucleated RBCs/100 WBC Differential Comment Platelet Estimate Platelet Morphology RBC Morphology Sodium 161 H* Potassium 4.9 D Chloride 121 H Carbon Dioxide 24.7 Anion Gap 15 BUN 156 H Creatinine 6.58 H Estimated GFR 10 L POC Glucose 108 134 H Random Glucose 130 H D Calcium 7.0 L* D Prot Corrected Calcium 7.9 L D Total Bilirubin AST ALT Alkaline Phosphatase Total Protein 5.4 L Albumin Random Vancomycin Hepatitis A IgM Ab Hep Bs Antigen Hep B Core IgM Ab Hep C IgG Ab 05/26/18 05/26/18 05/26/18 00:30 04:00 04:00 WBC 14.9 H RBC 4.35 L Hgb 13.3 Hct 40.0 MCV 91.9 MCH 30.7 MCHC 33.4 RDW 13.9 Plt Count 56 L D MPV 11.0 Prelim Diff (Auto) Slide review pending Neut % (Auto) 85.5 H Lymph % (Auto) 6.9 L Smith % (Auto) 7.3 Eos % (Auto) 0.1 Baso % (Auto) 0.2 Neut # (Auto) 12.8 H Lymph # (Auto) 1.0 Smith # (Auto) 1.1 H Eos # (Auto) 0.0 Baso # (Auto) 0.0 WBC Differential Manual diff final Seg Neuts % (Manual) 83 H Band Neuts % (Manual) 8 H Lymphocytes % (Manual) 4 L Monocytes % (Manual) 5 Abs Neuts (Manual) 13.6 H Nucleated RBCs/100 WBC 1 H Differential Comment . Platelet Estimate Low L Platelet Morphology Enlarged H RBC Morphology Normal Sodium 158 H* Potassium 5.5 H Chloride 116 H Carbon Dioxide 24.0 Anion Gap 18 H BUN 165 H Creatinine 6.67 H Estimated GFR 10 L POC Glucose 175 H Random Glucose 182 H Calcium 6.0 L* D Prot Corrected Calcium 7.0 L* D Total Bilirubin 0.9 AST 437 H ALT 160 H Alkaline Phosphatase 52 Total Protein 5.0 L Albumin 1.8 L Random Vancomycin 16.7 Hepatitis A IgM Ab Hep Bs Antigen Hep B Core IgM Ab Hep C IgG Ab 05/26/18 05/26/18 05/26/18 05:33 09:30 12:30 WBC RBC Hgb Hct MCV MCH MCHC RDW Plt Count MPV Prelim Diff (Auto) Neut % (Auto) Lymph % (Auto) Smith % (Auto) Eos % (Auto) Baso % (Auto) Neut # (Auto) Lymph # (Auto) Smith # (Auto) Eos # (Auto) Baso # (Auto) WBC Differential Seg Neuts % (Manual) Band Neuts % (Manual) Lymphocytes % (Manual) Monocytes % (Manual) Abs Neuts (Manual) Nucleated RBCs/100 WBC Differential Comment Platelet Estimate Platelet Morphology RBC Morphology Sodium Potassium Chloride Carbon Dioxide Anion Gap BUN Creatinine Estimated GFR POC Glucose 211 H 233 H Random Glucose Calcium Prot Corrected Calcium Total Bilirubin AST ALT Alkaline Phosphatase Total Protein Albumin Random Vancomycin Hepatitis A IgM Ab Nonreactive Hep Bs Antigen Nonreactive Hep B Core IgM Ab Nonreactive Hep C IgG Ab Nonreactive Microbiology 05/24/18 18:28 Sputum - Endotracheal Gram Stain - Final 05/24/18 18:28 Sputum - Endotracheal Sputum Culture - Final Heavy growth normal respiratory elizabeth 05/24/18 13:25 Blood - Peripheral Aerobic Blood Culture - Preliminary No growth in 2 days 05/24/18 13:25 Blood - Peripheral Anaerobic Blood Culture - Preliminary No growth in 2 days 05/24/18 13:10 Blood - Peripheral Aerobic Blood Culture - Preliminary No growth in 2 days 05/24/18 13:10 Blood - Peripheral Anaerobic Blood Culture - Preliminary No growth in 2 days Assessment and Plan (1) Cholelithiasis Status: Acute Code(s): K80.20 - Calculus of gallbladder without cholecystitis without obstruction (2) Coffee ground emesis Status: Acute Code(s): K92.0 - Hematemesis (3) GI bleed Status: Acute Code(s): K92.2 - Gastrointestinal hemorrhage, unspecified - Plan Coffee-ground emesis initially when OG tube was placed and patient will monitor and need to rule out the possibility of upper GI bleeding GI bleeding upper probable .current hemoglobin 15.1 and no rectal bleeding noted or melena since admission. Gallstones seen on CT scan otherwise unremarkable Leukocytosis unspecified currently 19. 72-year-old male was found down at home and there is currently no family present. Nurse states there is a sister and a niece that have called about him and plan to visit at some point. Sister did tell nurse on the phone that [facility] does include some [facility] workup. Records have been [facility] for [facility] evaluation [facility] the [facility]. Will maintain OG tube to low intermittent wall suction for now and monitor for coffee-ground emesis but at some point if patient continues to require intubation he will need a nutritional consult and supportive feeds. Currently patient is full code full aggressive care and palliative care consult has been noted. 05/26/2018 patient continues to remain in the intensive care setting and ventilator management. no obvious response noted from patient. Elevated liver enzymes with AST 437 ALT 160 normal bilirubin could be related to shock liver, since patient was found down at home. OG tube is clamped no obvious coffee- ground emesis for now. [facility]. currently patient is not medically stable for any procedures unless done on an emergent basis. Prognosis poor Plan Maintain OG tube clamped, Nutritional consult for recommendations for feedings Monitor labs with special attention to hemoglobin Old [facility] the [facility] Continue Protonix drip Further recommendations to follow This patient was seen per myself and Dr. Samson, this note was written on her behalf (3) GI bleed Qualifiers: GI bleed type/associated pathology: unspecified gastrointestinal hemorrhage type Qualified Code(s): K92.2 - Gastrointestinal hemorrhage, unspecified
[2018-05-26] MEDS: Vasopressin Inj 40 UNIT in Sodium Chlor 0.9% Inj 98 ML IV.CONT SCH (16:15)
[2018-05-26] MEDS: Sodium Bicarbonate 8.4% Inj 100 MEQ in Water for Inj, Sterile 900 ML IV.CONT SCH ×2 (16:16→23:03)
[2018-05-26] MEDS ORDERED: Insulin Detemir Inj 1,000 UNIT/10 ML Vial SQ SCH (21:00)
[2018-05-27] MEDS: Piperacil/Tazo 2.25 GM Premix 50 ML IV.SIG SCH ×2 (01:28→08:12)
[2018-05-27] MEDS: Senna/Docusate Sodium 8.6/50 MG Tablet PO SCH ×2 (02:15→08:12)
[2018-05-27 04:48] LABS: Hematocrit 35.5 % (39.0-51.0); Mean Corpuscular HGB Conc 33.7 % (32.0-36.0); Mean Corpuscular Hemoglobin 30.8 pg (27.0-34.0); Mean Corpuscular Volume 91.3 fL (80.0-100.0); Mean Platelet Volume 10.2 fL (7.0-11.0); Platelet Count 47 th/mm3 (150-450); Red Blood Count 3.89 mil/mm3 (4.50-5.90); Red Cell Distribution Width 13.8 % (11.6-17.2); White Blood Count 15.2 th/mm3 (4.0-11.0)
[2018-05-27 05:25] LABS: Albumin 1.6 g/dL (3.4-5.0); Calcium 5.4 mg/dL (8.5-10.1); Carbon Dioxide 26.8 meq/L (21.0-32.0); Potassium 4.3 meq/L (3.5-5.1); Total Protein 4.8 g/dL (6.4-8.2)
[2018-05-27] MEDS: Chlorhexidine Gluconate 2% 1 Pack (2 Cloths) TOPICAL SCH (05:44)
[2018-05-27 06:12] LABS: Lymphocytes 5 % (9-44); Monocytes 3 % (0-8)
[2018-05-27] MEDS: Sodium Bicarbonate 8.4% Inj 100 MEQ in Water for Inj, Sterile 900 ML IV.CONT SCH (06:13)
--- NOTE | 2018-05-27 08:06 | P.PNNP ---
Subjective Interval history: no acute events Physical Exam Vital signs: Vital Signs 05/26/18 08:00 05/26/18 08:07 05/26/18 10:00 Temperature 97.7 F Pulse Rate 89 91 H Respiratory Rate 24 Blood Pressure 112/76 Pulse Oximetry 97 97 05/26/18 11:42 05/26/18 12:00 05/26/18 14:00 Temperature 98.5 F Pulse Rate 87 90 Respiratory Rate 16 Blood Pressure 97/62 L Pulse Oximetry 98 97 05/26/18 15:50 05/26/18 15:51 05/26/18 15:56 Temperature 98.1 F Pulse Rate 74 74 Respiratory Rate 16 24 Blood Pressure 115/76 Pulse Oximetry 100 100 05/26/18 18:00 05/26/18 19:00 05/26/18 19:15 Temperature Pulse Rate 66 61 66 Respiratory Rate 8 L 7 L Blood Pressure 103/69 93/60 L Pulse Oximetry 100 100 05/26/18 19:30 05/26/18 19:45 05/26/18 20:00 Temperature 97.9 F Pulse Rate 68 70 71 Respiratory Rate 9 L 6 L 9 L Blood Pressure 93/62 L 91/62 L 94/64 L Pulse Oximetry 99 99 99 05/26/18 20:12 05/26/18 20:15 05/26/18 20:30 Temperature Pulse Rate 74 68 Respiratory Rate 24 4 L 24 Blood Pressure 97/66 L 102/69 Pulse Oximetry 99 99 97 05/26/18 20:45 05/26/18 21:00 05/26/18 21:15 Temperature Pulse Rate 71 69 68 Respiratory Rate 24 24 24 Blood Pressure 100/68 111/71 115/74 Pulse Oximetry 99 99 99 05/26/18 21:30 05/26/18 21:45 05/26/18 22:00 Temperature Pulse Rate 67 65 67 Respiratory Rate 7 L 10 L 18 Blood Pressure 128/76 126/76 131/78 Pulse Oximetry 100 100 100 05/26/18 22:15 05/26/18 22:30 05/26/18 22:45 Temperature Pulse Rate 66 66 63 Respiratory Rate 7 L 6 L 9 L Blood Pressure 145/80 H 145/78 H 130/72 Pulse Oximetry 100 100 100 05/26/18 23:00 05/26/18 23:15 07/07/18 23:30 Temperature Pulse Rate 70 61 60 Respiratory Rate 6 L 24 24 Blood Pressure 142/80 H 120/67 127/76 Pulse Oximetry 100 100 100 05/26/18 23:45 05/26/18 23:58 05/27/18 00:00 Temperature Pulse Rate 62 61 Respiratory Rate 23 24 24 Blood Pressure 119/71 117/70 Pulse Oximetry 100 100 100 05/27/18 00:15 05/27/18 00:30 05/27/18 00:45 Temperature Pulse Rate 61 57 L 61 Respiratory Rate 24 18 24 Blood Pressure 142/78 H 118/66 117/71 Pulse Oximetry 99 100 100 05/27/18 01:00 05/27/18 01:15 05/27/18 01:30 Temperature Pulse Rate 58 L 59 L 58 L Respiratory Rate 24 24 24 Blood Pressure 112/68 109/67 122/71 Pulse Oximetry 100 100 100 05/27/18 01:45 05/27/18 02:00 05/27/18 02:15 Temperature Pulse Rate 60 85 65 Respiratory Rate 5 L 22 3 L Blood Pressure 124/75 161/85 H 112/65 Pulse Oximetry 100 84 L 99 05/27/18 02:30 05/27/18 02:45 05/27/18 03:00 Temperature Pulse Rate 64 65 59 L Respiratory Rate 7 L 10 L 1 L Blood Pressure 110/66 126/69 129/75 Pulse Oximetry 99 97 100 05/27/18 03:15 05/27/18 03:30 05/27/18 03:45 Temperature Pulse Rate 58 L 61 57 L Respiratory Rate 2 L 0 L 0 L Blood Pressure 131/77 132/74 119/68 Pulse Oximetry 100 100 100 05/27/18 04:00 05/27/18 04:15 05/27/18 04:30 Temperature Pulse Rate 55 L 56 L 62 Respiratory Rate 1 L 0 L 1 L Blood Pressure 124/73 121/71 110/69 Pulse Oximetry 100 100 100 05/27/18 04:45 05/27/18 05:00 05/27/18 06:00 Temperature Pulse Rate 59 L 64 64 Respiratory Rate 0 L 12 Blood Pressure 130/77 137/81 Pulse Oximetry 100 100 05/27/18 07:39 Temperature Pulse Rate Respiratory Rate 24 Blood Pressure Pulse Oximetry Intake & Output 05/26/18 05/27/18 05/27/18 18:59 06:59 18:59 Intake Total 2230 / 2230 4380 / 4380 Output Total 75 / 75 315 / 315 Balance 2155 / 2155 4065 / 4065 Weight 74.5 kg Intake: IV 1300 / 1300 2100 / 2100 Protonix Inj 80 MG In NS Inj 100 / 100 100 / 100 100 ML @ 10 mls/hr IV.CONT CONT [facility] Rx#:[id number] Sodium Bicarbonate 8.4% Inj 100 1000 / 1000 2000 / 2000 MEQ In Sterile Water for Inj 900 ML @ 150 mls/hr IV.CONT . Q6H40M [facility] Rx#:[id number] Pitressin Inj 40 UNIT In NS Inj 100 / 100 98 ML @ 0.01 UNITS/MIN 1.5 mls /hr IV.CONT CONT [facility] Rx#: [id number] Zosyn 2.25 GM Premix 50 ML @ 100 / 100 100 mls/hr IV.SIG Q8H [facility] Rx#: [id number] fentaNYL 10 mcg/mL Premix Drip 0 / 0 2,500 mcg In 250 ml @ 50 MCG/HR 5 mls/hr IV.SIG TITRATE PRN Rx #:[id number] Oral 0 / 0 Tube Feeding 30 / 30 480 / 480 Water Bolus Amount 900 / 900 1800 / 1800 Output: Urine 15 / 15 Urine Amount (Catheter) 75 / 75 200 / 200 Indwelling Temp Sensing 75 / 75 Catheter Indwelling Urethral Catheter 200 / 200 Gastric Drainage 100 / 100 Orogastric Tube 100 / 100 Other: Date of Last Bowel Movement 05/26/18 05/26/18 # Bowel Movements 1 # Incontinent Bowel Movements 3 - Constitutional no acute distress - Routine HEENT Exam Head: Present: normocephalic - Routine Neck Exam Present: supple - Routine Respiratory Exam Present: decreased breath sounds - Routine Cardiovascular Exam Present: RRR - Routine Abdominal Exam Present: soft - Routine Skin Exam Present: intact - Routine Psychiatric Exam Present: unable to assess - Urinary Catheter Management Indwelling Temp Sensing Catheter Cath placed during this visit: yes Reason for continuing: Hourly intake/output Insertion date: 05/24/18 Insertion time: 13:00 Indwelling Urethral Catheter Cath placed during this visit: no Reason for continuing: Hourly intake/output Assessment and Plan - Assessment (1) Acute kidney injury Code(s): N17.9 - Acute kidney failure, unspecified Status: Acute Plan: Acute kidney injury which is multifactorial, possibly related to rhabdomyolysis and possibly acute tubular necrosis from the hypotension and also dehydration. Creatinine at 6.3 ->6.6.-> 7.2 Urinary output at 275ml /24 hours Acidosis has improved , K 4.3 Na 158 -> 147 after IVFs adjusted yesterday. Avoid nephrotoxin and hypotension. Continue medical management of hyperkalemia - no dialysis per family. Palliative care is following. (2) Acute hypernatremia Code(s): E87.0 - Hyperosmolality and hypernatremia Status: Acute - Plan Continue D5w with sodium bicarbonate
--- NOTE | 2018-05-27 08:38 | P.PNCC ---
Subjective Subjective Remarks/Hospital Course: The patient is a 72-year-old male with a past medical history of hypertension and diabetes mellitus who presented to [facility] ED after he was found unresponsive at home by EMS. EMS received a call from a well-check. Bag valve mask ventilation assisted respirations and patient was found hypotensive, and hypothermic as well. He was transported to the ED for evaluation. On arrival, the patient was hypothermic with a temperature of 93.1 and hypotensive with a blood pressure of 93/50. He was intubated and placed on full mechanical ventilation. In the ED, the patient received 3 liters of crystalloids. Post-intubation, the patient had approximately 200 mL of coffee- ground emesis from the OG tube. His laboratory data is significant for leukocytosis with a WBC of 20 and acute renal failure with a BUN of 170, creatinine 6.79. In addition, the patient was hyperglycemic with a blood sugar of 1010. Other abnormal labs showed electrolyte abnormalities with a sodium level of 156, potassium 6.7. In addition, the patient had lactic acidosis with initial lactic acid level 4.9, which decreased to 3.1 on repeat. Also, his total CK was elevated at 2630. He received Zosyn and 1 dose of vancomycin in the ER for leukocytosis. ABG post-intubation showed a pH of 7.12, CO2 of 56, PaO2 of 507, bicarbonate 17, saturation of 98% on PRVC rate of 18, tidal volume 450, PEEP of 5, I time 1.0 and FiO2 of 40%. The patient is scheduled to undergo CT scan of the brain, abdomen and pelvis without contrast. Also nephrology service has been notified by the ED physician, Dr. Moreno. Right femoral central line was placed by ED. 05/25 Patient is intubated and sedated with Fentanyl infusion. On Levophed 12 mics , Vasopressin 0.01, insulin drip 1.5u/hr and bicarb drip. CT brain showed no acute findings, CT abd/pelvis showed gallstones no acute abnormalities. 05/26 Patient remains intubated and sedated with Fentanyl. Remains on Vasopressin and bicarb drip. Afebrile, off Levophed. He was made no code DNR yesterday, by palliative care. 05/27 No events overnight. Sedated with Fentanyl and intubated. Afebrile, on bicarb drip, Vasopressin 0.04 and Levophed 2mics. Family is refusing HD and leaning toward comfort . Objective Vital Signs / I&O: Vital Signs 05/26/18 10:00 05/26/18 11:42 05/26/18 12:00 Temperature 98.5 F Pulse Rate 91 H 87 Respiratory Rate 16 Blood Pressure 97/62 L Pulse Oximetry 98 97 05/26/18 14:00 05/26/18 15:50 05/26/18 15:51 Temperature 98.1 F Pulse Rate 90 74 74 Respiratory Rate 16 Blood Pressure 115/76 Pulse Oximetry 100 05/26/18 15:56 05/26/18 18:00 05/26/18 19:00 Temperature Pulse Rate 66 61 Respiratory Rate 24 8 L Blood Pressure 103/69 Pulse Oximetry 100 100 05/26/18 19:15 05/26/18 19:30 05/26/18 19:45 Temperature Pulse Rate 66 68 70 Respiratory Rate 7 L 9 L 6 L Blood Pressure 93/60 L 93/62 L 91/62 L Pulse Oximetry 100 99 99 05/26/18 20:00 05/26/18 20:12 05/26/18 20:15 Temperature 97.9 F Pulse Rate 71 74 Respiratory Rate 9 L 24 4 L Blood Pressure 94/64 L 97/66 L Pulse Oximetry 99 99 99 05/26/18 20:30 05/26/18 20:45 05/26/18 21:00 Temperature Pulse Rate 68 71 69 Respiratory Rate 24 24 24 Blood Pressure 102/69 100/68 111/71 Pulse Oximetry 97 99 99 05/26/18 21:15 05/26/18 21:30 05/26/18 21:45 Temperature Pulse Rate 68 67 65 Respiratory Rate 24 7 L 10 L Blood Pressure 115/74 128/76 126/76 Pulse Oximetry 99 100 100 05/26/18 22:00 05/26/18 22:15 05/26/18 22:30 Temperature Pulse Rate 67 66 66 Respiratory Rate 18 7 L 6 L Blood Pressure 131/78 145/80 H 145/78 H Pulse Oximetry 100 100 100 05/26/18 22:45 05/26/18 23:00 05/26/18 23:15 Temperature Pulse Rate 63 70 61 Respiratory Rate 9 L 6 L 24 Blood Pressure 130/72 142/80 H 120/67 Pulse Oximetry 100 100 100 05/26/18 23:30 05/26/18 23:45 05/26/18 23:58 Temperature Pulse Rate 60 62 Respiratory Rate 24 23 24 Blood Pressure 127/76 119/71 Pulse Oximetry 100 100 100 05/27/18 00:00 05/27/18 00:15 05/27/18 00:30 Temperature Pulse Rate 61 61 57 L Respiratory Rate 24 24 18 Blood Pressure 117/70 142/78 H 118/66 Pulse Oximetry 100 99 100 05/27/18 00:45 05/27/18 01:00 05/27/18 01:15 Temperature Pulse Rate 61 58 L 59 L Respiratory Rate 24 24 24 Blood Pressure 117/71 112/68 109/67 Pulse Oximetry 100 100 100 05/27/18 01:30 05/27/18 01:45 05/27/18 02:00 Temperature Pulse Rate 58 L 60 85 Respiratory Rate 24 5 L 22 Blood Pressure 122/71 124/75 161/85 H Pulse Oximetry 100 100 84 L 05/27/18 02:15 05/27/18 02:30 05/27/18 02:45 Temperature Pulse Rate 65 64 65 Respiratory Rate 3 L 7 L 10 L Blood Pressure 112/65 110/66 126/69 Pulse Oximetry 99 99 97 05/27/18 03:00 05/27/18 03:15 05/27/18 03:30 Temperature Pulse Rate 59 L 58 L 61 Respiratory Rate 1 L 2 L 0 L Blood Pressure 129/75 131/77 132/74 Pulse Oximetry 100 100 100 05/27/18 03:45 05/27/18 04:00 05/27/18 04:15 Temperature Pulse Rate 57 L 55 L 56 L Respiratory Rate 0 L 1 L 0 L Blood Pressure 119/68 124/73 121/71 Pulse Oximetry 100 100 100 05/27/18 04:30 05/27/18 04:45 05/27/18 05:00 Temperature Pulse Rate 62 59 L 64 Respiratory Rate 1 L 0 L 12 Blood Pressure 110/69 130/77 137/81 Pulse Oximetry 100 100 100 05/27/18 06:00 05/27/18 07:39 05/27/18 08:00 Temperature 98.5 F Pulse Rate 64 64 Respiratory Rate 24 14 Blood Pressure 118/71 Pulse Oximetry 98 Intake & Output 05/26/18 05/27/18 05/27/18 18:59 06:59 18:59 Intake Total 2230 / 2230 4430 / 4430 Output Total 75 / 75 315 / 315 Balance 2155 / 2155 4115 / 4115 Weight 74.5 kg Intake: IV 1300 / 1300 2150 / 2150 Protonix Inj 80 MG In NS Inj 100 / 100 100 / 100 100 ML @ 10 mls/hr IV.CONT CONT [facility] Rx#:[id number] Sodium Bicarbonate 8.4% Inj 100 1000 / 1000 2000 / 2000 MEQ In Sterile Water for Inj 900 ML @ 150 mls/hr IV.CONT . Q6H40M ANA ROSA Rx#:[id number] Pitressin Inj 40 UNIT In NS Inj 100 / 100 98 ML @ 0.01 UNITS/MIN 1.5 mls /hr IV.CONT CONT [facility] Rx#: [id number] Zosyn 2.25 GM Premix 50 ML @ 100 / 100 50 / 50 100 mls/hr IV.SIG Q8H [facility] Rx#: [id number] fentaNYL 10 mcg/mL Premix Drip 0 / 0 2,500 mcg In 250 ml @ 50 MCG/HR 5 mls/hr IV.SIG TITRATE PRN Rx #:[id number] Oral 0 / 0 Tube Feeding 30 / 30 480 / 480 Water Bolus Amount 900 / 900 1800 / 1800 Output: Urine 15 / 15 Urine Amount (Catheter) 75 / 75 200 / 200 Indwelling Temp Sensing 75 / 75 Catheter Indwelling Urethral Catheter 200 / 200 Gastric Drainage 100 / 100 Orogastric Tube 100 / 100 Other: Date of Last Bowel Movement 05/26/18 05/26/18 05/26/18 # Bowel Movements 1 # Incontinent Bowel Movements 3 Result Diagrams: 05/27/18 04:30 05/27/18 04:30 Other Results: Laboratory Results - last 12 hr 05/27/18 05/27/18 04:30 04:30 WBC 15.2 H RBC 3.89 L Hgb 12.0 L Hct 35.5 L MCV 91.3 MCH 30.8 MCHC 33.7 RDW 13.8 Plt Count 47 L MPV 10.2 Prelim Diff (Auto) Manual diff required WBC Differential Manual diff final Seg Neuts % (Manual) 81 H Band Neuts % (Manual) 11 H Lymphocytes % (Manual) 5 L Monocytes % (Manual) 3 Abs Neuts (Manual) 14.0 H Differential Comment . Platelet Estimate Low L Platelet Morphology Enlarged H Sodium 147 H D Potassium 4.3 D Chloride 96 L D Carbon Dioxide 26.8 Anion Gap 24 H BUN 181 H Creatinine 7.21 H Estimated GFR 9 L Random Glucose 355 H D Calcium 5.4 L* Prot Corrected Calcium 6.4 L* Total Bilirubin 1.0 AST 323 H ALT 123 H Alkaline Phosphatase 56 Total Protein 4.8 L Albumin 1.6 L Imaging: Chest X-Ray 05/24/18 13:08 CONCLUSION: Status post placement of an endotracheal tube positioned approximately 2 cm above the thoracic aortic arch. No evidence of pneumothorax. Head CT 05/24/18 13:08 CONCLUSION: Stable brain appearance with no definite acute findings. Abdomen/Pelvis CT 05/24/18 16:17 CONCLUSION: 1. Gallstones. 2. No other definite acute CT findings in the abdomen or pelvis. Abdomen/Bladder Ultrasound 05/25/18 00:00 CONCLUSION: Renal ultrasound within normal limits. Objective Remarks: GENERAL: Patient is 72 yo intubated critically ill on multiple pressors. SKIN: Warm and dry. HEAD: Normocephalic. EYES: No scleral icterus. No injection or drainage. NECK: Supple, trachea midline. No JVD or lymphadenopathy. CARDIOVASCULAR: Regular rate and rhythm without murmurs, gallops, or rubs. RESPIRATORY: Breath sounds equal bilaterally. No accessory muscle use. GASTROINTESTINAL: Abdomen soft, non-tender, nondistended. MUSCULOSKELETAL: No cyanosis, or edema. Neuro: Intubated, sedated Assessment and Plan - Assessment and Plan Plan: 1. Acute hypercapnic respiratory failure. 2. Encephalopathy. 3. Lactic acidemia. 4. Leukocytosis. 5. Acute renal failure. 6. Nonketotic hyperosmolar hyperglycemia. 7. Electrolyte abnormalities, which include hypernatremia and Hyperkalemia. 8. Elevated CK. 9. Dehydration. 10. Questionable gastrointestinal bleed. 11. History of hypertension. 12. History of diabetes mellitus. Plan Neuro: Monitor neuro status , on fentanyl infusion for sedation. Daily sedation vacation. UDS is negative. CT brain - no acute intracranial findings. Pulm: Continue with vent support and maintain sats > 92%. Bronchodilators. ICU vent bundle. CV: On Vasopressin, Levophed 2 mics, wean off pressors as eduardo keep MAP> 65 mmHg. Given total 7L crystalloids since admission. On bicarb drip. Lactic acid cleared 1.9 : Monitor renal function I's and O's and avoid nephrotoxins. Cr: 7.2 from 6.6 , Family refusing HD Renal is following, on SW+2amps bicarb @150ml/hr, Monitor CK's, Free water 250ml Q12 GI: continue with Protonix drip GI consulted. CT abd/pelvis showed gallstones, no acute findings. Monitor LFT's, Hepatitis profile negative. ID: Continue with abx(vancomycin and Zosyn)monitor for signs of infections ( fever, WBC) Follow up on blood cultures- NGTD Endo: Off Insulin drip , on SSI and Levemir insulin 5u Heme: Monitor CBC GI prophylaxis- on Protonix drip. DVT prophylaxis with SCD's Palliative care is following. Healthcare proxy sister Sabina refusing HD and leaning toward transitioning to comfort care. Patient is critically ill with respiratory failure, renal failure, septic shock and multiple organ injury. Right femoral central line placed by ED 05/24 Code status: No code DNR CCT 30 mins
--- NOTE | 2018-05-27 10:26 | P.DIET ---
Nutritional Evaluation Type of nutrition evaluation: follow-up Nutrition consult regarding: Tube Feeding Screening comments: [facility] TF Recs Objective - Diagnosis Septic Shock - Objective % IBW: 95 Body Weight Used for Calculations: Actual Energy Needs - Lower Range (kCal/kg): 25 Energy Needs - Upper Range (kCal/kg): 30 Lower Limit kCal/kg (kCals): 1,600 Upper Limit kCal/kg (kCals): 1,920 Lower Limit Protein Factor (Grams per Kg): 0.8 Upper Limit Protein Factor (Grams per Kg): 1 Lower Protein Needs (Protein): 51 Upper Protein Needs (Protein): 64 Dietitian Reviewed in Medical Record: Current diet, Curent medications, Intake & Output, Labs, Medical history, Tube feeding Diet Order: TF only Objective Comments: Nutritional needs based on 64kg PMH: CKD, DM, CVA, HLD, HTN Meds include: Fentanyl Labs include: Cr 7.2 UOP: 275mls/24 hrs Assessment Assessment: Pt at nutritional risk r/t dx and need for a TF for nutrition support. Pt intubated and sedated on fentanyl. TF Nepro with goal rate 40 ml/hr will provide 1728 kcals, 78 gms protein and 698 mls free water. This is adequate to meet pt's nutritional needs at this time. Noted worsening renal function, no dialysis per family. If a low protein TF is preferred, recommend Suplena with goal rate 40 ml/hr to provide 1728 kcals, 43 gms protein and 708 mls free water. Will monitor TF tolerance, clinical course. Recommendations: TF Nepro with goal rate 40 ml/hr If low protein TF preferred, recommend Suplena w/goal rate 40 ml/hr Dietitian following Dietitian to Monitor: Lab values, Renal labs, Tube feeding tolerance, Weight change, Medical course
[2018-05-27] MEDS: Pantoprazole Inj 80 MG in Sodium Chlor 0.9% Inj 100 ML IV.CONT SCH (11:09)
[2018-05-27] MEDS: Vasopressin Inj 40 UNIT in Sodium Chlor 0.9% Inj 98 ML IV.CONT SCH (11:09)
[2018-05-27] MEDS ORDERED: fentaNYL Citrate Inj 100 MCG/2 ML Ampul IV.PUSH ONE ×2 (12:47)
[2018-05-27] MEDS ORDERED: Hyoscyamine Inj 0.5 MG/ML Ampul IV.PUSH ONE (12:47)
[2018-05-27] MEDS ORDERED: Morphine Inj 4 MG/ML Vial IV.PUSH PRN (12:47)
--- NOTE | 2018-05-27 14:56 | MD ---
cc: Sanjay Burnette MD DATE OF DISCHARGE: HOSPITAL COURSE: The patient is a 72-year-old male with a history of hypertension, diabetes mellitus, who presented to [facility] ED on 05/24/2018, for altered mental status and patient was found unresponsive at home by EMS. He was hypothermic, hypotensive. The patient was intubated and placed on full mechanical ventilation. He received 3 liters of crystalloids on arrival and postintubation he had approximately 200 mL of coffee ground emesis from OG tube. His laboratory data on arrival showed leukocytosis with a WBC of 20, acute renal failure with a BUN of 170, creatinine 6.79, and hyperglycemia with a blood sugar of 1010. Other abnormalities showed electrolyte derangements. Sodium level 156, potassium 6.7 and lactic acidosis with a lactic acid level 4.9. His total CK was also elevated at 2630. The patient received broad-spectrum antibiotics in the ED. He was placed on fentanyl infusion for sedation. In addition, the patient required multiple pressors, including Levophed and vasopressin. Also, he was placed on insulin drip and bicarbonate drip. A CT scan of the brain showed no acute findings. In addition, he had a CT abdomen and pelvis, which showed gallstones, otherwise no acute abnormalities. His urine drug screen was negative. The patient was placed on bronchodilators. His hepatitis profile was negative. The patient also had elevated liver enzymes and was on a Protonix drip. During his hospital course, he was being followed by nephrology, palliative care and GI services. The patient's healthcare proxy sister, Sabina refused hemodialysis and on 05/27/2018, she transitioned toward comfort care. The patient was critically ill with respiratory failure, renal failure, septic shock and multiple organ injury. The patient on 05/27/2018. MD MADAN Oropeza/PRISCILLA , 02:25 PM , 02:54 PM
== END 2018-05-27 14:06 | disposition expired ==
LOC: NEPC 12:37 → NEDA 16:20 → HIMC 17:30
PROVIDERS: ADMIT Internal Medicine Critical Care Medicine; ATTEND Internal Medicine Critical Care Medicine